=== PATIENT | male | born 1940 | race Caucasian/White ===

== ENCOUNTER 2020-04-25 05:57 | Outpatient (REF) | payer MEDICARE, OTHER, SELFPAY ==
[2020-04-25 07:37] LABS: Cholesterol 193 mg/dL; HDL Cholesterol 57 mg/dL; LDL Cholesterol Calculated 123 mg/dl; Triglycerides 69 mg/dL
[2020-04-25 08:00] LABS: Thyroid Stimulating Hormone 1.73 mIU/mL (0.32-4.0)
[2020-04-25 08:21] LABS: Digoxin 0.5 ng/mL (0.8-2.0)
== END 2020-04-25 05:58 | disposition home or self-care (01) ==
LOC: HO.LAB 05:57
PROVIDERS: PCP Internal Medicine; Visit Provider Internal Medicine
DX: I48.91 Unspecified atrial fibrillation (principal)
CPT/HCPCS: 80061; 80162; 84443

== ENCOUNTER 2020-07-21 12:01 | Emergency (ER) | payer MEDICARE, OTHER, SELFPAY ==
[2020-07-21 15:45] VITALS: BP 140/68; PULSE 84; RESP 16; TEMP 36.7; O2SAT 97; BMI 24.4
--- NOTE | 2020-07-21 16:12 | XR_ITS ---
EXAMINATION: XR FEMUR, LEFT CLINICAL INFORMATION: Pain. COMPARISON: None TECHNIQUE: AP and lateral views of the left femur were obtained. FINDINGS: There is no visible fracture, bony abnormality or periosteal thickening. The soft tissues are normal. The hip joint appears unremarkable.. XR/XR femur LT 2V IMPRESSION: Unremarkable left femur.
--- NOTE | 2020-07-21 17:04 | ED_ITS ---
HPI - Extremity Injury (Lower) General Chief Complaint: Extremity Injury, Lower Stated Complaint: sore leg Time Seen by Provider: 07/21/20 16:11 History of Present Illness HPI Narrative: Patient complains of left thigh pain after standing up from a chair he felt a small twinge and then it has gotten worse over the last 2 days, no other injury, no numbness no weakness no tingling no back pain he did not fall down, it is painful to walk Related Data Home Medications Medication Instructions Recorded Confirmed furosemide 40 mg tablet 40 mg PO BID 05/04/20 05/04/20 rivaroxaban 20 mg tablet 20 mg PO DAILY 05/04/20 05/04/20 Previous Rx's Medication Instructions Recorded albuterol sulfate 90 mcg/actuation 2 puff INHALATION Q4-6H PRN #6.7 g 04/11/20 aerosol inhaler digoxin 125 mcg (0.125 mg) tablet 125 mcg PO DAILY #90 tab 07/17/20 diltiazem HCl 180 mg 180 mg PO DAILY #90 tab 07/17/20 tablet,extended release 24 hr levothyroxine 50 mcg tablet 50 mcg PO DAILY #90 tab 07/17/20 Allergies Allergy/AdvReac Type Severity Reaction Status Date / Time No Known Allergies Allergy Verified 05/03/20 10:25 [No Known Allergies*] Review of Systems Review of Systems: No numbness weakness paresthesia, no chest pain or shortness of breath no back pain no neck pain no fever no chills Yes all other systems are reviewed and are negative PMFSH Past Medical History Source: nursing notes reviewed Medical History (Updated 07/21/20 @ 17:17 by MARA Mane) Afib Hypothyroidism Surgical History H/O prostatectomy Family History Family History (Updated 05/03/20 @ 10:25 by MICHEAL Villanueva) Father Alzheimers disease Mother Dementia Social History Social History Smoking Status: Current every day smoker Smoked in Last 30 Days: Yes Use of substances other than those prescribed or required for medical reasons: No Advance Directives: No Advance Directives Information Provided: Yes Physical Exam Vital Signs: Vital Signs: Last Vital Signs Temp 98.1 F 07/21/20 15:45 Pulse 84 07/21/20 15:45 Resp 16 07/21/20 15:45 BP 140/68 H 07/21/20 15:45 Pulse Ox 97 07/21/20 15:45 Body Mass Index 24.4 General appearance is no acute distress, comfortable appearing cooperative Head is normocephalic atraumatic The neck is supple and nontender Respiratory is no distress Extremities the left thigh has superior lateral tenderness over the muscles of the lateral upper thigh, no redness no warmth no mass palpated, there is full range of motion in the hip the patient is able to bear weight and walking with a mild limp without assistance, neurovascular intact distal and the skin was no rmal Neuro was no focal deficit Course Course Course Narrative: Left femur x-ray was normal with no evidence of bony injury or abnormality or no evidence of malignancy Patient is adviced this may simply be a muscle injury but if pain continues he will need further evaluation from orthopedist or his doctor to make sure there is not any underlying lesion not seen on x-ray that could be causing this pain Discharge Plan Discharge Clinical Impression: Left thigh pain Patient Disposition: Home, Self-Care Additional Instructions: I am not sure what is causing the pain, it may be a mild muscle strain But most important if you have pain in the left thigh that is not improving you will need follow with your doctor and orthopedist as in rare cases the pain could be caused by a lesion or a mass not seen on x-ray So follow with your doctor or orthopedist within 1-2 weeks Return to ER any time any worse condition or any concerns Prescriptions: No Action albuterol sulfate [ProAir HFA] 90 mcg/actuation HFA aerosol inhaler 2 puff inhalation Q4-6H PRN (Reason: shortness of breath or wheezing) Qty: 6.7 RF: 8 digoxin 125 mcg (0.125 mg) tablet 125 mcg PO DAILY Qty: 90 RF: 8 diltiazem HCl 180 mg tablet extended release 24 hr 180 mg PO DAILY Qty: 90 RF: 8 levothyroxine 50 mcg tablet 50 mcg PO DAILY Qty: 90 RF: 8 furosemide 40 mg tablet 40 mg PO BID RF: 0 Xarelto 20 mg tablet 20 mg PO DAILY RF: 0 Referrals: Josh Randall MD [Physician] - 2 days (Left thigh pain)
== END 2020-07-21 17:27 | disposition home or self-care (01) ==
PROVIDERS: Emergency Provider Emergency Medicine; PCP Internal Medicine
DX: M79.652 Pain in left thigh (principal); Z79.899 Other long term (current) drug therapy
CPT/HCPCS: 73552; 99283

== ENCOUNTER 2020-08-08 | Outpatient (REF) | payer MEDICARE, OTHER, SELFPAY | END 2020-08-08 00:01 | disposition home or self-care (01) | LOC: HO.VC | PROVIDERS: Visit Provider Internal Medicine | DX: Z23 Encounter for immunization (principal) | CPT/HCPCS: 0011A ==

== ENCOUNTER → 2020-08-22 08:22 | Outpatient (REF) | payer MEDICARE, OTHER, SELFPAY ==
--- NOTE | 2020-08-22 08:26 | CA_ITS ---
Transthoracic Echocardiogram Patient (Last, First, Middle): Balwinder Clay A Gender: Male Date of : 1940 Age: 80 Procedure Date: 08/22/2020 Procedure Type: Transthoracic Echocardiogram Location: OP Height: 182.88 cm Weight: 79.38 kg BSA: 2.01 m2 Heart Rate: bpm BP: 128 / 60 mmHg Clinical Research Physician: Silvia MD: Tunde Spring MD Production Grip: Rafael Chow MD Symptoms: NON RHEUMATIC I35.0 Study Quality: Fair ECG Rhythm: Atrial Fibrillation Conclusions: - 1. Normal LV systolic function 2. Severely dilated left atrium 3. Moderate aortic stenosis 4. Mild mitral regurgitation 5. Normal RV systolic pressure 6. No pericardial effusion Findings Left Ventricle Normal left ventricular size, thickness, and systolic function. The visually estimated ejection fraction is between 60-65%. Diastolic function is indeterminate on the basis of available data. Right Ventricle Normal right ventricular cavity size and systolic function. Atria The left atrium is severely dilated. There is lipomatous hypertrophy of the interatrial septum. There is no evidence of interatrial shunt. The right atrium is mildly dilated. Aortic Valve There is moderate calcification of the aortic valve. There is moderate thickening of the aortic valve. There is moderate aortic valve stenosis. The peak aortic gradient is 26 mmHg.The mean gradient is 15 mmHg. The aortic valve area is 1.32 cm2. There is mild aortic valve regurgitation. Mitral Valve There is mild anterior and posterior mitral leaflet thickening. There is moderate mitral annular calcification. There is mild mitral valve regurgitation. There is no mitral valve stenosis. Pulmonic Valve The pulmonic valve was not well visualized. Tricuspid Valve Likely normal tricuspid valve structure and function. There is mild tricuspid valve regurgitation. The right ventricular systolic pressure is normal. The right ventricular systolic pressure is 24 mmHg. There is no evidence of pulmonary hypertension. Great Vessels All visible segments of the aorta are normal in size. The pulmonary artery was not well visualized. Venous The inferior vena cava is normal in size and collapses greater than 50% with inspiration. Pericardium/Pleural There is no evidence of pericardial effusion. Prior Study Comparison No significant change compared to prior study dated: 01/27/2020. Measurements 2D Linear Measurements IVSd: 1.10 0.6-0.9/0.6-1.0 cm LVIDd: 5.12 3.9-5.3/4.2-5.9 cm LVIDd Index: 2.55 2.4-3.2/2.2-3.1 cm/m2 LVIDs: 3.17 2.0-3.6 cm LVPWd: 1.12 0.7-1.1 cm Ao Root: 3.80 2.1-3.5 cm LA Diam: 4.10 2.7-3.8/3.0-4.0 cm LAIDs Index: 2.04 1.5-2.3 cm/m2 LV Mass: 271.68 67-162/88-224 g LV Mass Index: 135.16 43-95/49-115 g/m2 LVOT Diam: 2.30 3.0+(-)1.3 cm 2D Systolic Function EF 4C: 56.30 >55% EF 2C: 69.80 >55% EF BiP: 61.80 >55% Mitral Valve MV VTI: 0.35 MV Pk Garrett: 1.45 MV Mn Garrett: 0.71 MV Pk Grad: 8.00 MV Mn Grad: 3.00 MV Pk E: 1.36 MV Decel Time: 332.00 E'Lateral: 9.48 E'Medial: 10.30 E/E' Med: 13.20 E/E' Lat: 14.30 PHT: 92.00 MVA PHT: 2.39 MVA Continuity: 2.18 Decel [place]: 4.65 Aortic Valve AoV Pk Garrett: 2.53 AoV Mn Garrett: 1.79 AoV VTI: 0.58 AoV Pk Grad: 26.00 Aov Mn Grad: 15.00 PEEWEE Cont.VTI: 1.32 LVOT LVOT Pk Garrett: 0.85 LVOT Mn Garrett: 0.58 LVOT VTI: 0.18 LVOT Pk Grad: 3.00 LVOT Mn Grad: 2.00 LVOT Diam: 2.30 LVOT Area: 4.15 Diastolic Function MV Pk E: 1.36 E'Medial: 10.30 E/E' Med: 13.20 E' Laterial: 9.48 E/E' Lat: 14.30 Tricuspid Valve TR Pk Garrett: 2.27 TR Pk Grad: 21.00 RA Press: 3.00 RVSP: 24.00 Great Vessels Aorta Ao Root-2D: 3.80 2.0-3.7 cm Ao Asc: 3.50 2.1-3.4 cm Updated in Other Vendor System with Status of Final Rafael Chow MD electronically signed on 08/22/2020 2:35:37 PM with status of Final
== END ==
LOC: HO.CARD 08:22
PROVIDERS: PCP Internal Medicine; Visit Provider Internal Medicine
DX: I35.0 Nonrheumatic aortic (valve) stenosis (principal); I48.91 Unspecified atrial fibrillation
CPT/HCPCS: 93225; 93226; 93306

== ENCOUNTER → 2020-08-24 10:08 | Outpatient (REF) | payer MEDICARE, OTHER, SELFPAY ==
--- NOTE | 2020-08-24 15:19 | ECG_ITS ---
Hook-up date: 2020-08-24 11:24:00 Duration: 47:59:00 Test Indications: AFIB Medications: [id number] QRS complexes 5056 Ventricular ectopics which represent 4 % of total QRS comp. * Supraventricular ectopics which represent % of total QRS comp. * Paced QRS complexs which represent % of total QRS comp. VENTRICULAR ECTOPY 4871 Isolated 188 Bigeminal Cycles 91 Couplets 1 Runs 3 Beats in Runs 3 Beats LONGEST at 138 BPM at 04:48:12 2020-08-25 3 Beats FASTEST at 138 BPM at 04:48:12 2020-08-25 SUPRAVENTRICULAR ECTOPY * Isolated * Couplets * Runs * Beats in Runs * Beats LONGEST at * BPM at :: -- * Beats FASTEST at * BPM at :: -- HEART RATES 45 MIN at 05:05:58 2020-08-25 73 AVG 144 MAX at 14:38:22 2020-08-24 LONGEST RR 2.3840 secs at 02:27:09 2020-08-25 S-T LEVELS Channel 1 - 128 mm at 11:24:00 2020-08-24 - 128 mm at 11:24:00 2020-08-24 Channel 2 - 128 mm at 11:24:00 2020-08-24 - 128 mm at 11:24:00 2020-08-24 Channel 3 - 128 mm at 03:04:31 -- - 128 mm at 03:04:31 Underlying rhythm is atrial fibrillation; Average ventricular rate 73/min; range 45-144/min; About 5% of the beats >100/min; 8% <60/min; No significant pauses; Frequent ventricular ectopy (5% of total beats); Mostly isolated, some couplets, bigeminy, one 3 beat run; Patient did not report any symptoms in the diary Referred By: Cecilia Moreira Overread By: CECILIA MOREIRA
== END ==
LOC: HO.CARD 10:08
PROVIDERS: PCP Internal Medicine; Visit Provider Internal Medicine
DX: I48.91 Unspecified atrial fibrillation (principal)
CPT/HCPCS: 93226

== ENCOUNTER → 2020-08-29 08:01 | Outpatient (BNVA) | payer MEDICARE, OTHER, SELFPAY | PROVIDERS: PCP Internal Medicine; Visit Provider Internal Medicine | DX: I48.19 Other persistent atrial fibrillation (principal); I35.0 Nonrheumatic aortic (valve) stenosis; I50.32 Chronic diastolic (congestive) heart failure | CPT/HCPCS: 93005; 99212 ==

== ENCOUNTER 2020-09-05 | Outpatient (REF) | payer MEDICARE, OTHER, SELFPAY | END 2020-09-05 00:01 | disposition home or self-care (01) | LOC: HO.VC | PROVIDERS: Visit Provider Internal Medicine | DX: Z23 Encounter for immunization (principal) | CPT/HCPCS: 0012A ==

== ENCOUNTER 2020-11-02 06:01 | Outpatient (REF) | payer MEDICARE, OTHER, SELFPAY ==
[2020-11-02 08:58] LABS: Thyroid Stimulating Hormone 1.72 uIU/mL (0.32-4.0)
== END 2020-11-02 06:02 | disposition home or self-care (01) ==
LOC: HO.LAB 06:01
PROVIDERS: PCP Internal Medicine; Visit Provider Internal Medicine
DX: E03.9 Hypothyroidism, unspecified (principal)
CPT/HCPCS: 36415; 84443

== ENCOUNTER → 2021-02-27 08:07 | Outpatient (BNVA) | payer MEDICARE, OTHER, SELFPAY | PROVIDERS: PCP Internal Medicine; Referring Provider Internal Medicine; Visit Provider Internal Medicine | DX: I48.19 Other persistent atrial fibrillation (principal); I35.0 Nonrheumatic aortic (valve) stenosis; I50.30 Unspecified diastolic (congestive) heart failure; E03.9 Hypothyroidism, unspecified; Z79.02 Long term (current) use of antithrombotics/antiplatelets; F17.210 Nicotine dependence, cigarettes, uncomplicated; Z79.899 Other long term (current) drug therapy | CPT/HCPCS: 99212 ==

== ENCOUNTER 2021-03-01 06:00 | Outpatient (REF) | payer MEDICARE, OTHER, SELFPAY ==
[2021-03-01 07:23] LABS: Anion Gap 12 (12-20); Blood Urea Nitrogen 18 mg/dL (9-16); Calcium 9.4 mg/dL (8.4-10.2); Carbon Dioxide 30 mmol/L (22-29); Chloride 102 mmol/L (96-108); Estimated Glomerular Filt Rate > 60; Glucose Random 99 mg/dL (60-115); Potassium 4.1 mmol/L (3.3-5.1); Sodium 140 mmol/L (135-145)
[2021-03-01 07:30] LABS: Digoxin 0.4 ng/mL (0.8-2.0)
== END 2021-03-01 06:01 | disposition home or self-care (01) ==
LOC: HO.LAB 06:00
PROVIDERS: PCP Internal Medicine; Visit Provider Internal Medicine
DX: I48.19 Other persistent atrial fibrillation (principal); Z79.899 Other long term (current) drug therapy
CPT/HCPCS: 36415; 80048; 80162

== ENCOUNTER 2021-04-08 18:31 | Emergency (ER) | payer MEDICARE, OTHER, SELFPAY ==
[2021-04-08 21:01] VITALS: BP 108/54; PULSE 57; RESP 16; TEMP 36.5; O2SAT 97; BMI 22.4
--- NOTE | 2021-04-08 22:58 | ED.GENADULT ---
HPI - General Adult General Chief complaint: General Medical Stated complaint: med issue Time Seen by Provider: 04/08/21 22:58 Source: patient Mode of arrival: ambulatory Limitations: no limitations History of Present Illness HPI narrative: Patient with history of atrial fibrillation hypothyroidism on Cardizem 180 mg twice daily by mistake took extra tablet at 18:30 on arrival patient heart rate was 57 denies any dizziness or syncope episode repeat blood pressure 120/58 and heart rate 72 Related Data Previous Rx's Medication Instructions Recorded digoxin 125 mcg (0.125 mg) tablet 125 mcg PO DAILY #90 tab 07/17/20 levothyroxine 50 mcg tablet 50 mcg PO DAILY #90 tab 07/17/20 furosemide 40 mg tablet 40 mg PO BID #180 tab 08/28/20 diltiazem HCl 180 mg 180 mg PO BID 90 Days #180 tab 10/12/20 tablet,extended release 24 hr rivaroxaban 20 mg tablet (Xarelto) 20 mg PO DAILY #90 tab 11/12/20 albuterol sulfate 90 mcg/actuation 2 puff INHALATION Q4-6H PRN #6.7 g 03/23/21 aerosol inhaler (ProAir HFA) Allergies Allergy/AdvReac Type Severity Reaction Status Date / Time No Known Allergies Allergy Verified 04/08/21 21:01 [No Known Allergies*] Review of Systems Review of Systems: Yes all other systems are reviewed and are negative PMF Past Medical History Medical History Afib Chronic heart failure with preserved ejection fraction (HFpEF) Hypothyroidism Non-rheumatic aortic stenosis Persistent atrial fibrillation Surgical History H/O prostatectomy Family History Family History Father Alzheimers disease Mother Dementia Social History Social History Alcohol intake: never Patient Tobacco Use Status: Current everyday Tobacco user Tobacco use type: Cigarette Cigarette Packs Per Day: 0.5 Cigarettes Per Day: 10 Years Smoked: 45 +/- Advance Directives: No Advance Directives Information Provided: Yes Physical Exam Vital Signs: Vital Signs: Last Vital Signs Temp 97.7 F 04/08/21 21:01 Pulse 72 04/08/21 23:09 Resp 16 04/08/21 23:09 BP 120/58 L 04/08/21 23:09 Pulse Ox 97 04/08/21 23:09 Body Mass Index 22.4 Appearance: Alert. Oriented X3. No acute distress. ENT: Pharynx normal. Oral Mucosa moist Neck: Normal inspection. Neck supple. CVS: Irregularly irregular heart rate Pulses normal. Respiratory: No respiratory distress. Equal air entry bilateral, no wheezing/rales/rhonchi Abdomen: Soft and nontender. Bowel sounds are present, Skin: Skin warm and dry. Normal skin color. Normal skin turgor. Extremities: No lower extremity edema. No calf tenderness Neuro: Oriented X 3. Medical Decision Making MDM Narrative Medical decision making narrative: Patient with nontoxic overdose of diltiazem vital stable will discharge patient home advised keep an eye on his heart rate and blood pressure Discharge Plan Discharge Clinical Impression: Overdose Qualifiers: Encounter type: initial encounter Injury intent: accidental or unintentional Qualified Code(s): T50.901A - Poisoning by unspecified drugs, medicaments and biological substances, accidental (unintentional), initial encounter Patient Disposition: Home, Self-Care Instructions: Adult Overdose (ED) Additional Instructions: Keep an eye on your blood pressure/heart rate overnight Report to the ER if feel like passing out or heart rate is less than 40 Be careful next time and taking your prescribed medication Prescriptions: No Action digoxin 125 mcg (0.125 mg) tablet 125 mcg PO DAILY Qty: 90 RF: 8 levothyroxine 50 mcg tablet 50 mcg PO DAILY Qty: 90 RF: 8 furosemide 40 mg tablet 40 mg PO BID Qty: 180 RF: 3 diltiazem HCl 180 mg tablet extended release 24 hr 180 mg PO BID 90 Days Qty: 180 RF: 1 Xarelto 20 mg tablet 20 mg PO DAILY Qty: 90 RF: 8 albuterol sulfate [ProAir HFA] 90 mcg/actuation HFA aerosol inhaler 2 puff inhalation Q4-6H PRN (Reason: shortness of breath or wheezing) Qty: 6.7 RF: 8
[2021-04-08 23:09] VITALS: BP 120/58; PULSE 72; RESP 16; O2SAT 97
== END 2021-04-08 23:17 | disposition home or self-care (01) ==
PROVIDERS: Emergency Provider Internal Medicine; PCP Internal Medicine
DX: T46.1X1A Poisoning by calcium-channel blockers, accidental (unintentional), initial encounter (principal); Y92.9 Unspecified place or not applicable; F17.210 Nicotine dependence, cigarettes, uncomplicated; Z79.899 Other long term (current) drug therapy; Z71.6 Tobacco abuse counseling
CPT/HCPCS: 99283

== ENCOUNTER 2021-05-13 06:19 | Outpatient (REF) | payer MEDICARE, OTHER, SELFPAY ==
[2021-05-13 06:27] LABS: MANUAL DIFF FLAG NO
[2021-05-13 07:11] LABS: Basophils Percent Auto 0.4 % (0-2); Eosinophils Absolute Auto 0.4 X10*3/uL (0.0-0.4); Eosinophils Percent Auto 3.8 % (0-4); Hematocrit 36.5 % (42.0-52.0); Hemoglobin 12.8 g/dl (14.0-18.0); Imm Gran Abs Auto 0.03 X10*3/uL (0.00-0.03); Imm Gran Pct Auto 0.3 % (0.0-0.4); Lymphocytes Absolute Auto 3.2 X10*3/uL (1.2-4.9); Lymphocytes Percent Auto 33.2 % (20-40); Mean Corpuscular HGB Conc 35.1 g/dl (31.0-36.0); Mean Corpuscular Hemoglobin 32.7 pg (27.0-33.0); Mean Corpuscular Volume 93.4 fL (80.0-98.0); Mean Platelet Volume 10.7 fL (9.4-12.4); Monocytes Percent Auto 10.4 % (2-11); Neutrophils Percent Auto 51.9 % (45-73); Platelet Count 213 X10*3/uL (160-400); Red Blood Count 3.91 X10*6/uL (4.60-5.80); Red Cell Distribution Width 12.7 % (11.0-16.0); White Blood Count 9.7 X10*3/uL (4.8-10.8)
[2021-05-13 07:34] LABS: Alanine Aminotransferase 20 U/L (0-40); Alkaline Phosphatase 120 U/L (39-117); Anion Gap 13 (12-20); Aspartate Amino Transferase 23 U/L (5-37); Blood Urea Nitrogen 18 mg/dL (9-16); Carbon Dioxide 31 mmol/L (22-29); Chloride 99 mmol/L (96-108); Cholesterol 162 mg/dL; Estimated Glomerular Filt Rate > 60; Glucose Fasting 103 mg/dL (60-99); HDL Cholesterol 54 mg/dL; LDL Cholesterol Calculated 96 mg/dl; Sodium 139 mmol/L (135-145); Total Protein 7.2 g/dL (6.5-8.0); Triglycerides 62 mg/dL
== END 2021-05-13 06:20 | disposition home or self-care (01) ==
LOC: HO.LAB 06:19
PROVIDERS: PCP Internal Medicine; Visit Provider Internal Medicine
DX: Z00.00 Encounter for general adult medical examination without abnormal findings (principal); E11.9 Type 2 diabetes mellitus without complications
CPT/HCPCS: 36415; 80053; 80061; 84443; 85025

== ENCOUNTER → 2021-06-25 10:26 | Outpatient (REF) | payer MEDICARE, OTHER, SELFPAY ==
--- NOTE | 2021-06-25 09:03 | HM_ITS ---
Total monitoring time 1 day in 23 hours. Underlying rhythm is atrial fibrillation. Average rate 78/Min. Minimum 50/Min. Maximum 134/Min. About 3.3% the time, rate greater than 100/Min. One pause, 3.1 seconds during sleep hours. Frequent PVCs with a burden of 2.5%. 3 morphologies; 206 couplets but no runs. No patient events. Overall, mostly controlled atrial fibrillation with some rapid rates. MTDD
== END ==
LOC: HO.CARD 10:26
PROVIDERS: PCP Internal Medicine; Visit Provider Internal Medicine
DX: I48.19 Other persistent atrial fibrillation (principal); Z79.01 Long term (current) use of anticoagulants
CPT/HCPCS: 93242

== ENCOUNTER 2021-10-07 06:21 | Outpatient (REF) | payer MEDICARE, OTHER, SELFPAY ==
[2021-10-07 07:21] LABS: Baso%MD 0.8 %; Eos%MD 5.4 %; Hematocrit 36.8 % (42.0-52.0); Hemoglobin 12.6 g/dl (14.0-18.0); IG%MD 0.4 %; Lymph%MD 37.2 %; Mean Corpuscular HGB Conc 34.2 g/dl (31.0-36.0); Mean Corpuscular Hemoglobin 32.2 pg (27.0-33.0); Mean Corpuscular Volume 94.1 fL (80.0-98.0); Mean Platelet Volume 10.2 fL (9.4-12.4); Mono%MD 9.5 %; Neut%MD 46.7 %; Platelet Count 251 X10*3/uL (160-400); Red Blood Count 3.91 X10*6/uL (4.60-5.80); Red Cell Distribution Width 13.2 % (11.0-16.0); White Blood Count 7.8 X10*3/uL (4.8-10.8)
[2021-10-07 07:28] LABS: Estimated Average Glucose 111 mg/dL; Hemoglobin A1C 123.8322 umol/L; Hemoglobin A1c % 5.5 %
[2021-10-07 07:53] LABS: Anion Gap 10 (12-20); Blood Urea Nitrogen 21 mg/dL (9-16); Calcium 9.4 mg/dL (8.4-10.2); Carbon Dioxide 31 mmol/L (22-29); Chloride 100 mmol/L (96-108); Cholesterol 190 mg/dL; Estimated Glomerular Filt Rate > 60; Glucose Fasting 92 mg/dL (60-99); HDL Cholesterol 62 mg/dL; LDL Cholesterol Calculated 119 mg/dl; Potassium 4.2 mmol/L (3.3-5.1); Sodium 137 mmol/L (135-145); Triglycerides 45 mg/dL
[2021-10-07 08:17] LABS: Prostate Specific Antigen Scr 0.36 ng/mL (<0.05-4.0)
[2021-10-07 08:58] LABS: Band Neutrophils Percent 0 % (3-5); Basophils Abs Manual 0.1 X10*3/uL (0.0-0.2); Basophils Percent Manual 1 % (0-2); Eosinophils Absolute Manual 0.7 X10*3/uL (0.0-0.4); Eosinophils Percent Manual 9 % (0-4); Lymphocytes Percent Manual 39 % (20-40); Monocytes Absolute Manual 0.9 X10*3/uL (0.1-1.2); Monocytes Percent Manual 11 % (2-11); Neutrophils Absolute Manual 3.1 X10*3/uL (2.0-8.3); Neutrophils Percent Manual 40 % (45-73)
[2021-10-07 09:01] LABS: Acanthocytes 1+ (0-2) /OIF; Burr Cells 1+ (0-2) /OIF; Ovalocytes 1+ (5-14) /OIF; Platelet Estimate NORMAL (NORMAL); Platelet Morphology Comment NORMAL; RBC Morphology NOTED
[2021-10-07 09:54] LABS: Digoxin 0.5 ng/mL (0.8-2.0)
== END 2021-10-07 06:22 | disposition home or self-care (01) ==
LOC: HO.LAB 06:21
PROVIDERS: PCP Internal Medicine; Visit Provider Nurse Practitioner Acute Care
DX: E03.9 Hypothyroidism, unspecified (principal); I48.19 Other persistent atrial fibrillation; R73.09 Other abnormal glucose; Z86.39 Personal history of other endocrine, nutritional and metabolic disease; Z12.5 Encounter for screening for malignant neoplasm of prostate
CPT/HCPCS: 36415; 80048; 80061; 80162; 83036; 84153; 84443; 85007; 85027

== ENCOUNTER 2021-10-14 06:07 | Outpatient (REF) | payer MEDICARE, OTHER, SELFPAY ==
[2021-10-14 08:19] LABS: Digoxin 0.7 ng/mL (0.8-2.0)
== END 2021-10-14 06:08 | disposition home or self-care (01) ==
LOC: HO.LAB 06:07
PROVIDERS: PCP Internal Medicine; Visit Provider Nurse Practitioner Acute Care
DX: Z79.899 Other long term (current) drug therapy (principal); R78.89 Finding of other specified substances, not normally found in blood
CPT/HCPCS: 36415; 80162

== ENCOUNTER → 2021-10-22 09:03 | Outpatient (REF) | payer MEDICARE, OTHER, SELFPAY ==
--- NOTE | 2021-10-22 09:07 | CA_ITS ---
Transthoracic Echocardiogram Patient (Last, First, Middle): Balwinder Clay A Gender: Male Date of : 1940 Age: 81 Procedure Date: 10/22/2021 Procedure Type: Transthoracic Echocardiogram Location: OP Height: 180.34 cm Weight: 72.58 kg BSA: 1.92 m2 Heart Rate: bpm BP: 118 / 58 mmHg Supervisor Parking Lot: LUIS EDUARDO Referring MD: Tunde Spring MD Facility Technician: Rafael Chow MD Symptoms: I35.0 - Nonrheumatic aortic (valve) stenosis Study Quality: Fair ECG Rhythm: Atrial Fibrillation Conclusions: - 1. Normal LV systolic function 2. A t least moderate left atrial enlargement 3. Moderate aortic stenosis 4. Normal RV systolic pressure 5. No gross pericardial effusion Findings Left Ventricle Normal left ventricular size, thickness, and systolic function. The visually estimated ejection fraction is between 65-70%. Diastolic function is indeterminate on the basis of available data. E/E prime ratio is between 8 and 15 consistent with indeterminate filling pressures. Right Ventricle Normal right ventricular cavity size and systolic function. Atria The left atrium is moderately dilated. Interatrial shunt cannot be excluded. The right atrium is mildly dilated. Aortic Valve There is moderate calcification of the aortic valve. There is moderate aortic valve stenosis. There is no aortic valve regurgitation. Mitral Valve There is mild anterior and moderate posterior mitral leaflet thickening. There is moderate mitral annular calcification. There is mild mitral valve regurgitation. There is no mitral valve stenosis. Pulmonic Valve The pulmonic valve was not well visualized. Tricuspid Valve Likely normal tricuspid valve structure and function. There is mild tricuspid valve regurgitation. The right ventricular systolic pressure is normal. The right ventricular systolic pressure is 23 mmHg. Normal right atrial pressure. There is no evidence of pulmonary hypertension. Great Vessels All visible segments of the aorta are normal in size. The pulmonary artery was not well visualized. Venous The inferior vena cava is normal in size and collapses greater than 50% with inspiration. Pericardium/Pleural There is no evidence of pericardial effusion. Prior Study Comparison No significant change compared to prior study dated: 08/22/2020. Measurements 2D Linear Measurements IVSd: 0.92 0.6-0.9/0.6-1.0 cm LVIDd: 4.91 3.9-5.3/4.2-5.9 cm LVIDd Index: 2.56 2.4-3.2/2.2-3.1 cm/m2 LVIDs: 3.32 2.0-3.6 cm LVPWd: 0.86 0.7-1.1 cm LA Diam: 3.60 2.7-3.8/3.0-4.0 cm LAIDs Index: 1.88 1.5-2.3 cm/m2 LV Mass: 188.43 67-162/88-224 g LV Mass Index: 98.14 43-95/49-115 g/m2 LVOT Diam: 2.10 3.0+(-)1.3 cm 2D Systolic Function EF 4C: 70.30 >55% EF 2C: 72.40 >55% EF BiP: 70.80 >55% Mitral Valve MV Pk E: 1.11 MV Decel Time: 216.00 E'Lateral: 11.50 E'Medial: 8.20 E/E' Med: 13.50 E/E' Lat: 9.70 PHT: 63.00 MVA PHT: 3.49 Decel [place]: 5.15 Aortic Valve AoV Pk Garrett: 2.40 AoV Mn Garrett: 1.63 AoV VTI: 0.51 AoV Pk Grad: 23.00 Aov Mn Grad: 12.00 PEEWEE Cont.VTI: 1.22 LVOT LVOT Pk Garrett: 0.79 LVOT Mn Garrett: 0.53 LVOT VTI: 0.17 LVOT Pk Grad: 2.00 LVOT Mn Grad: 2.00 LVOT Diam: 2.10 LVOT Area: 3.46 Diastolic Function MV Pk E: 1.11 E'Medial: 8.20 E/E' Med: 13.50 E' Laterial: 11.50 E/E' Lat: 9.70 Right Ventricle TAPSE (mm): 1.95 TVS' Garrett: 14.40 Tricuspid Valve TR Pk Garrett: 2.25 TR Pk Grad: 20.00 RA Press: 3.00 RVSP: 23.00 Great Vessels Aorta Sinus of Valsalva: 3.74 2.0-3.5 cm Ao Asc: 3.70 2.1-3.4 cm Updated in Other Vendor System with Status of Final Rafael Chow MD electronically signed on 10/22/2021 11:34:18 AM with status of Final
== END ==
LOC: HO.CARD 09:03
PROVIDERS: PCP Internal Medicine; Visit Provider Internal Medicine
DX: I35.0 Nonrheumatic aortic (valve) stenosis (principal)
CPT/HCPCS: 93306

== ENCOUNTER → 2021-12-05 13:54 | Outpatient (BNVA) | payer MEDICARE, OTHER, SELFPAY | PROVIDERS: PCP Internal Medicine; Referring Provider Internal Medicine; Visit Provider Nurse Practitioner Family | DX: I48.19 Other persistent atrial fibrillation (principal); I35.0 Nonrheumatic aortic (valve) stenosis; I50.32 Chronic diastolic (congestive) heart failure | CPT/HCPCS: Q3014 ==

== ENCOUNTER 2022-03-03 06:09 | Outpatient (REF) | payer MEDICARE, OTHER, SELFPAY ==
[2022-03-03 08:04] LABS: Thyroid Stimulating Hormone 1.86 uIU/mL (0.32-4.0)
== END 2022-03-03 06:10 | disposition home or self-care (01) ==
LOC: HO.LAB 06:09
PROVIDERS: Visit Provider Internal Medicine
DX: Z13.29 Encounter for screening for other suspected endocrine disorder (principal)
CPT/HCPCS: 36415; 84443

== ENCOUNTER 2022-05-14 08:33 | Outpatient (REF) | payer MEDICARE, OTHER, SELFPAY ==
[2022-05-14 08:52] LABS: MANUAL DIFF FLAG NO
[2022-05-14 09:11] LABS: Basophils Absolute Auto 0.1 X10*3/uL (0.0-0.2); Basophils Percent Auto 0.8 % (0-2); Eosinophils Absolute Auto 0.3 X10*3/uL (0.0-0.4); Eosinophils Percent Auto 3.9 % (0-4); Hematocrit 38.2 % (42.0-52.0); Hemoglobin 12.9 g/dl (14.0-18.0); Imm Gran Abs Auto 0.02 X10*3/uL (0.00-0.03); Imm Gran Pct Auto 0.2 % (0.0-0.4); Lymphocytes Absolute Auto 3.3 X10*3/uL (1.2-4.9); Lymphocytes Percent Auto 38.9 % (20-40); Mean Corpuscular HGB Conc 33.8 g/dl (31.0-36.0); Mean Corpuscular Volume 94.8 fL (80.0-98.0); Mean Platelet Volume 10.2 fL (9.4-12.4); Monocytes Absolute Auto 0.7 X10*3/uL (0.1-1.2); Monocytes Percent Auto 8.4 % (2-11); Neutrophils Absolute Auto 4.1 x10*3/uL (2.0-8.3); Neutrophils Percent Auto 47.8 % (45-73); Platelet Count 233 X10*3/uL (160-400); Red Blood Count 4.03 X10*6/uL (4.60-5.80); Red Cell Distribution Width 12.8 % (11.0-16.0); White Blood Count 8.5 X10*3/uL (4.8-10.8)
[2022-05-14 09:32] LABS: Alanine Aminotransferase 24 U/L (0-40); Albumin Level 4.3 g/dL (3.5-5.0); Alkaline Phosphatase 109 U/L (39-117); Anion Gap 16 (12-20); Aspartate Amino Transferase 26 U/L (5-37); Bilirubin Total 0.8 mg/dL (0.0-1.0); Blood Urea Nitrogen 17 mg/dL (9-16); Calcium 9.2 mg/dL (8.4-10.2); Carbon Dioxide 28 mmol/L (22-29); Chloride 101 mmol/L (96-108); Cholesterol 190 mg/dL; Estimated Glomerular Filt Rate > 60; Glucose Fasting 91 mg/dL (60-99); HDL Cholesterol 66 mg/dL; LDL Cholesterol Calculated 116 mg/dl; Potassium 4.7 mmol/L (3.3-5.1); Sodium 140 mmol/L (135-145); Total Protein 7.5 g/dL (6.5-8.0); Triglycerides 42 mg/dL
[2022-05-14 09:53] LABS: Thyroid Stimulating Hormone 1.67 uIU/mL (0.32-4.0)
== END 2022-05-14 08:34 | disposition home or self-care (01) ==
LOC: HO.LAB 08:33
PROVIDERS: PCP Internal Medicine; Visit Provider Internal Medicine
DX: Z13.0 Encounter for screening for diseases of the blood and blood-forming organs and certain disorders involving the immune mechanism (principal); E03.9 Hypothyroidism, unspecified; E78.5 Hyperlipidemia, unspecified; I10 Essential (primary) hypertension
CPT/HCPCS: 36415; 80053; 80061; 84443; 85025

== ENCOUNTER → 2022-06-23 08:24 | Outpatient (BNVA) | payer MEDICARE, OTHER, SELFPAY | PROVIDERS: PCP Internal Medicine; Referring Provider Internal Medicine; Visit Provider Internal Medicine | DX: I48.19 Other persistent atrial fibrillation (principal); I35.0 Nonrheumatic aortic (valve) stenosis; I50.32 Chronic diastolic (congestive) heart failure | CPT/HCPCS: 93005; 99212 ==

== ENCOUNTER 2022-09-05 06:14 | Outpatient (REF) | payer MEDICARE, OTHER, SELFPAY ==
[2022-09-05 08:33] LABS: Thyroid Stimulating Hormone 2.56 uIU/mL (0.32-4.0)
== END 2022-09-05 06:15 | disposition home or self-care (01) ==
LOC: HO.LAB 06:14
PROVIDERS: PCP Internal Medicine; Visit Provider Internal Medicine
DX: E03.9 Hypothyroidism, unspecified (principal)
CPT/HCPCS: 36415; 84443

== ENCOUNTER → 2022-12-09 08:49 | Outpatient (REF) | payer MEDICARE, OTHER, SELFPAY ==
--- NOTE | 2022-12-09 08:52 | CA_ITS ---
Transthoracic Echocardiogram Patient (Last, First, Middle): Balwinder Clay A Gender: Male Date of : 1940 Age: 82 Procedure Date: 12/09/2022 Procedure Type: Transthoracic Echocardiogram Location: OP Height: 177.8 cm Weight: 65.32 kg BSA: 1.82 m2 Heart Rate: bpm BP: 120 / 64 mmHg Regulatory Product Manager: SB Referring MD: Tunde Spring MD Symptoms: I35.0 - Nonrheumatic aortic (valve) stenosis Study Quality: Technically Difficult/narrow rib spaces ECG Rhythm: Atrial Fibrillation Conclusions: - The left ventricular systolic function is normal. The calculated ejection fraction is 66% by biplane method. - Severe biatrial enlargement. - There is moderate calcification of the aortic valve. There is moderate aortic valve stenosis. - There is moderate mitral annular calcification. Findings Left Ventricle Normal left ventricular cavity size. There is normal left ventricular wall thickness. The left ventricular systolic function is normal. The calculated ejection fraction is 66% by biplane method. There is no evidence of regional wall motion abnormalities. Diastolic function is indeterminate on the basis of available data. Right Ventricle Normal right ventricular cavity size. There is mildly decreased right ventricular systolic function. Atria Severe biatrial enlargement. Aortic Valve There is moderate calcification of the aortic valve. There is moderate aortic valve stenosis. The peak aortic velocity is 2.21 m/s with a calculated peak gradient of 20 mmHg. The mean gradient is 10 mmHg. The aortic valve area is 1.25 cm2. Trace to mild regurgitation. Stroke volume index 31 mL/m2. Mitral Valve There is moderate mitral annular calcification. There is trace mitral valve regurgitation. There is no mitral valve stenosis. Pulmonic Valve The pulmonic valve is likely normal. Tricuspid Valve There is mild tricuspid valve regurgitation. There is no evidence of pulmonary hypertension. Great Vessels The asc aorta is normal in size. Venous The inferior vena cava is mildly dilated and collapses greater than 50% with inspiration. Pericardium/Pleural There is no evidence of pericardial effusion. Prior Study Comparison No significant change compared to prior study dated: 10/22/2021. Measurements 2D Linear Measurements IVSd: 0.85 0.6-0.9/0.6-1.0 cm LVIDd: 4.90 3.9-5.3/4.2-5.9 cm LVIDd Index: 2.69 2.4-3.2/2.2-3.1 cm/m2 LVIDs: 3.17 2.0-3.6 cm LVPWd: 0.75 0.7-1.1 cm LA Diam: 4.30 2.7-3.8/3.0-4.0 cm LAIDs Index: 2.36 1.5-2.3 cm/m2 LV Mass: 163.78 67-162/88-224 g LV Mass Index: 89.99 43-95/49-115 g/m2 LVOT Diam: 2.20 3.0+(-)1.3 cm 2D Systolic Function EF 4C: 65.10 >55% EF 2C: 65.90 >55% EF BiP: 65.80 >55% Mitral Valve MV VTI: 0.29 MV Pk Garrett: 1.32 MV Mn Garrett: 0.61 MV Pk Grad: 7.00 MV Mn Grad: 2.00 MV Pk E: 1.18 MV Decel Time: 222.00 E'Lateral: 7.33 E'Medial: 6.67 E/E' Med: 17.70 E/E' Lat: 16.10 MVA Continuity: 1.98 Aortic Valve AoV Pk Garrett: 2.21 AoV Mn Garrett: 1.53 AoV VTI: 0.46 AoV Pk Grad: 20.00 Aov Mn Grad: 10.00 PEEWEE Cont.VTI: 1.25 AI Pk Garrett: 3.[address] [place]: 1.71 LVOT LVOT Pk Garrett: 0.69 LVOT Mn Garrett: 0.49 LVOT VTI: 0.15 LVOT Pk Grad: 2.00 LVOT Mn Grad: 1.00 LVOT Diam: 2.20 LVOT Area: 3.80 Diastolic Function MV Pk E: 1.18 E'Medial: 6.67 E/E' Med: 17.70 E' Laterial: 7.33 E/E' Lat: 16.10 Right Ventricle TAPSE (mm): 16.10 TVS' [place]: 10.90 Tricuspid Valve TR Pk Garrett: 2.21 TR Pk Grad: 20.00 RA Press: 8.00 RVSP: 28.00 Great Vessels Aorta Sinus of Valsalva: 3.90 2.0-3.5 cm Ao Asc: 3.40 2.1-3.4 cm Pulmonary Valve PV Pk Garrett: 0.58 Peak PV Grad: 1.00 Updated in Other Vendor System with Status of Final Tunde Spring MD electronically signed on 12/10/2022 12:41:05 PM with status of Final
== END ==
LOC: HO.CARD 08:49
PROVIDERS: PCP Internal Medicine; Visit Provider Internal Medicine
DX: I35.0 Nonrheumatic aortic (valve) stenosis (principal)
CPT/HCPCS: 93306

== ENCOUNTER 2022-12-10 06:09 | Outpatient (REF) | payer MEDICARE, OTHER, SELFPAY ==
[2022-12-10 07:42] LABS: Thyroid Stimulating Hormone 2.68 uIU/mL (0.32-4.0)
== END 2022-12-10 06:10 | disposition home or self-care (01) ==
LOC: HO.LAB 06:09
PROVIDERS: PCP Internal Medicine; Visit Provider Internal Medicine
DX: E03.9 Hypothyroidism, unspecified (principal)
CPT/HCPCS: 36415; 84443

== ENCOUNTER 2023-03-10 06:09 | Outpatient (REF) | payer MEDICARE, OTHER, SELFPAY ==
[2023-03-10 08:38] LABS: Thyroid Stimulating Hormone 2.51 uIU/mL (0.32-4.0)
== END 2023-03-10 06:10 | disposition home or self-care (01) ==
LOC: HO.LAB 06:09
PROVIDERS: PCP Internal Medicine; Visit Provider Internal Medicine
DX: E03.9 Hypothyroidism, unspecified (principal)
CPT/HCPCS: 36415; 84443

== ENCOUNTER 2023-03-11 11:00 | Outpatient (AMB) | payer MEDICARE, OTHER, SELFPAY ==
--- NOTE | 2023-03-11 11:27 | A.OFFVIS_ITS ---
Intake Vital Signs 03/11/23 11:29 Height 5 ft 7 in Weight 140 lb 10.479 oz BMI 22.0 BP 108/68 Blood Pressure Location Lt brachial Position Sitting Pulse 78 Intake Visit Reasons: 6 month follow up Intake Note: 6 month w/ EKG Accompanied by: Self / Same As Patient Allergies No Known Allergies [No Known Allergies*] Allergy (Verified 03/11/23 11:30) Medication List - Last Reconciled 03/11/23 by Tunde Spring MD albuterol sulfate 90 mcg/actuation 2 puffs inhalation Q4-6H PRN digoxin 125 mcg PO DAILY diltiazem HCl ER 180 mg PO BID 90 days furosemide 40 mg PO BID levothyroxine 50 mcg PO DAILY rivaroxaban (Xarelto) 20 mg PO DAILY HPI HPI Comments History of Present Illness Details Balwinder returns for follow-up regarding atrial fibrillation, aortic stenosis, congestive heart failure. According to patient, he has not had any symptoms like chest pains or shortness of breath or in fact anything cardiac sounding. He states he is doing quite well. He states he has lost some weight and hence concerned about that. [facility] Medical History Afib Chronic heart failure with preserved ejection fraction (HFpEF) Hypothyroidism Non-rheumatic aortic stenosis Persistent atrial fibrillation Surgical History H/O prostatectomy Family History Father Alzheimers disease Mental health disorder Mother Dementia Mental health disorder Social History Housing: House Alcohol intake: current Alcohol intake frequency: holidays/special occasions only Patient Tobacco Use Status: Current everyday Tobacco user Tobacco use type: Cigarette Cigarette Packs Per Day: 0.5 Cigarettes Per Day: 10 Years Smoked: 45 +/- e-Cigarette/Vaping Use: Never Used Second Hand Smoke Exposure: Yes service: No Current occupational status: retired Cognitive needs: No Hearing needs: No Vision needs: Yes Review of Systems Const Denies weakness ENT Denies dizziness Card Denies chest pain, Denies chest pain with activity, Denies syncope, Denies rapid heart rate, Denies pedal edema, Denies edema, Denies leg edema, Denies lightheadedness, Denies palpitations, Denies dyspnea, Denies dyspnea on exertion and Denies orthopnea Resp Denies cough, Denies dyspnea and Denies dyspnea on exertion GI Denies hematochezia and Denies change in stool character Musc Denies abnormal gait, Denies muscle cramps, Denies muscle weakness, Denies numbness, Denies radiating pain into limb and Denies tingling Neuro Denies abnormal gait, Denies dizziness, Denies syncope, Denies numbness, Denies tingling and Denies weakness Endo Denies palpitations Physical Exam Vital Signs: Last Vital Signs Pulse 78 03/11/23 11:29 BP 108/68 03/11/23 11:29 BMI result Body Mass Index 22.0 Const General: comfortable and no acute distress Orientation/consciousness: patient oriented x3 HEENT Other: Unremarkable Head: Yes normal to inspection Neck Neck: Yes normal visual inspection Chest Chest palpation & inspection: normal inspection of the chest Resp Other: Minimal crackles at bases. Cardio Palpation: normal PMI Heart sounds: S1 normal heart sound present, S2 normal heart sound present, no gallops, Murmur heart sound present systolic II/ and at the right sternal border and no rubs GI Palpation (GI): Soft to palpation Back/Spine/Pelvis Other: unremarkable Skin General skin exam: no rashes or lesions noted Neuro General: patient oriented x3 Extrem General: Yes normal to inspection Psych Mental Status: mental status grossly normal Assessment & Plan Assessment & Plan (1) Persistent atrial fibrillation: Code(s): I48.19 - Other persistent atrial fibrillation Plan: Continue diltiazem and digoxin. Continue Xarelto. He will need labs including CBC, BMP as well as digoxin levels. Requested today and asked patient to perform. (2) Non-rheumatic aortic stenosis: Code(s): I35.0 - Nonrheumatic aortic (valve) stenosis Plan: Based on the most recent echocardiogram, moderate aortic valve calcification with moderate aortic stenosis. Mean gradient across aortic valve was 10 mm Hg. Calculated valve area of 1.25 sq cm. Will need to be monitored. (3) Chronic heart failure with preserved ejection fraction (HFpEF): Code(s): I50.32 - Chronic diastolic (congestive) heart failure Plan: In the recent echo LVEF 66%. No symptoms or signs of congestive heart failure. Check renal function. Orders: Orders Basic Metabolic Panel Today I50.32 - Chronic diastolic (congestive) heart failure Digoxin Today I48.19 - Other persistent atrial fibrillation, I50.32 - Chronic diastolic (congestive) heart failure Liver Panel Today I50.32 - Chronic diastolic (congestive) heart failure Complete Blood Count no Diff Today I50.32 - Chronic diastolic (congestive) heart failure CA echo transthoracic complete 51 Weeks I35.0 - Nonrheumatic aortic (valve) stenosis Coding Level of Care Code Est Pt Level 4 (00283) Diagnoses Persistent atrial fibrillation I48.19 Non-rheumatic aortic stenosis I35.0 Chronic heart failure with preserved ejection fraction (HFpEF) I50.32
[2023-03-11 11:29] VITALS: BP 108/68; PULSE 78; BMI 22.0
== END 2023-03-11 11:41 | disposition home or self-care (01) ==
PROVIDERS: PCP Internal Medicine; Referring Provider Internal Medicine; Visit Provider Internal Medicine
DX: I48.19 Other persistent atrial fibrillation (principal); I35.0 Nonrheumatic aortic (valve) stenosis; I50.32 Chronic diastolic (congestive) heart failure
CPT/HCPCS: 99214

== ENCOUNTER → 2023-03-11 11:00 | Outpatient (BNVA) | payer MEDICARE, OTHER, SELFPAY | PROVIDERS: PCP Internal Medicine; Referring Provider Internal Medicine; Visit Provider Internal Medicine | DX: I35.0 Nonrheumatic aortic (valve) stenosis (principal); I50.32 Chronic diastolic (congestive) heart failure; I48.19 Other persistent atrial fibrillation | CPT/HCPCS: 99212 ==

== ENCOUNTER 2023-03-13 09:15 | Outpatient (AMB) | payer MEDICARE, OTHER, SELFPAY ==
--- NOTE | 2023-03-13 09:16 | A.OFFPC_ITS ---
Vital Signs 03/13/23 09:17 Height 5 ft 7 in Weight 138 lb 2 oz BMI 21.6 BP 132/62 Blood Pressure Location Lt brachial Position Sitting Pulse 62 Pulse Source Pulse Oximeter Pulse Oximetry (%) 97 Oxygen Delivery Method Room Air Intake Visit Reasons: 3mth f/u Prepleater: Not Required per policy Accompanied by: Self / Same As Patient Allergies No Known Allergies [No Known Allergies*] Allergy (Verified 03/13/23 09:17) Medication List - Last Reconciled 03/13/23 by Sinan Luis MD albuterol sulfate 90 mcg/actuation 2 puffs inhalation Q4-6H PRN digoxin 125 mcg PO DAILY diltiazem HCl ER 180 mg PO BID 90 days furosemide 40 mg PO BID levothyroxine 50 mcg PO DAILY rivaroxaban (Xarelto) 20 mg PO DAILY Tobacco use date assessed: 09/09/22 Fall risk assessment: No Falls in past year Last assessed Fall Risk: 03/13/23 Dental Screening Dental Screen Date: 03/13/23 Did you have a dental visit in the last 12 months?: No Did you have a dental problem in the last 6 months where you did not have access to dental care?: No Was dental information given to patient?: Patient has dentist HPI 3mth f/u HPI Details afib hypothyroidism and hyperlipidemia; doing well; compliant [facility] Medical History Chronic heart failure with preserved ejection fraction (HFpEF) Non-rheumatic aortic stenosis Persistent atrial fibrillation Afib Hypothyroidism Surgical History H/O prostatectomy Family History Father Alzheimers disease Mental health disorder Mother Dementia Mental health disorder Social History Housing: House Alcohol intake: current Alcohol intake frequency: holidays/special occasions only Patient Tobacco Use Status: Current everyday Tobacco user Tobacco use type: Cigarette Cigarette Packs Per Day: 0.5 Cigarettes Per Day: 10 Years Smoked: 45 +/- e-Cigarette/Vaping Use: Never Used Second Hand Smoke Exposure: Yes service: No Current occupational status: retired Cognitive needs: No Hearing needs: No Vision needs: Yes Questionnaire PHQ-9 Over the last 2 weeks, how often have you been bothered by any of the following problems? 1. Little interest or pleasure in doing things: not at all 2. Feeling down, depressed, or hopeless: not at all 3. Trouble falling or staying asleep, or sleeping too much: not at all 4. Feeling tired or having little energy: not at all 5. Poor appetite or overeating: not at all 6. Feeling bad about yourself - or that you are a failure or have let yourself or your family down: not at all 7. Trouble concentrating on things, such as reading the newspaper or watching television: not at all 8. Moving or speaking so slowly that other people could have noticed. Or the opposite - being so fidgety or restless that you have been moving around a lot more than usual: not at all 9. Thoughts that you would be better off or of hurting yourself in some way: not at all Total score: 0 Depression Screening Interpretation: Negative 98672 - PHQ-9 Billing: Yes Source: Developed by Drs. Frandy Li, Helena Mtz, Sadi De Guzman and colleagues, with an educational kell from [employer]. Thrive Questionnaire Date Thrive assessed: 03/13/23 I am a: Patient What is your living situation today?: I have a steady place to live Within the past 12 months, did the food you bought not last and you didn't have the money to get more?: Never true Within the past 12 months, did you worry whether your food would run out before you got money to buy more?: Never true Do you have trouble paying for medicines?: No Do you have trouble getting transportation to medical appointments?: No Do you have trouble paying your heating and electricity bill?: No Do you have trouble taking care of your child, family member or friend?: No Do you have trouble with day-to-day activities such as bathing, preparing meals, shopping, managing finances, etc.?: No Are you currently unemployed and looking for a job?: No Are you interested in more education?: No Please select the resources that you would like help with: None AUDIT C Alcohol Use Questionnaire (AUDIT-C) 1. How often do you have a drink containing alcohol?: Monthly or less 2. How many drinks containing alcohol do you have on a typical day when you are drinking?: 1 or 2 3. How often do you have six or more drinks on one occasion?: Never Total Score: 1 Score Reviewed/Action Taken: Yes JELANI-7 AMB Questionnaire JELANI-7 Date JELANI - 7 assessed: 09/09/22 Source: Developed by Drs. Frandy Li, Helena Mtz, Sadi De Guzman and colleagues, with an educational kell from [employer]. Review of Systems Const Denies chills, Denies headache(s) and Denies weight loss ENT Denies headache(s) Card Denies chest pain, Denies syncope, Denies irregular heart rhythm and Denies dyspnea Resp Denies chest congestion, Denies cough and Denies dyspnea GI Denies abdominal pain, Denies change in stool character, Denies nausea and Denies vomiting Musc Denies deformity and Denies joint swelling Neuro Denies syncope and Denies headache(s) Physical exam (Primary Care) Vital Signs: Last Vital Signs Pulse 62 03/13/23 09:17 BP 132/62 03/13/23 09:17 Pulse Ox 97 03/13/23 09:17 Oxygen Delivery Method Room Air 03/13/23 09:17 BMI result Body Mass Index 21.6 Tobacco/Smoking Status: Tobacco use Status Tobacco use date assessed 09/09/22 03/13/23 09:25 Patient Tobacco Use Status Current everyday Tobacco 03/13/23 09:25 Tobacco use type Cigarette 03/13/23 09:25 e-Cigarette/Vaping Use Never Used 03/13/23 09:25 PHQ-9: PHQ-9 Score PHQ-9: Total score 0 03/13/23 09:25 Depression Screening Interpretation: Negative Thrive Assessment: Date of Thrive Assessment Date Thrive assessed 03/13/23 03/13/23 09:25 Const General: cooperative, comfortable, no acute distress and alert Neck Neck: Yes no lymphadenopathy Thyroid: Thyroid normal Resp Effort & Inspection: normal respiratory effort Auscultation: clear to auscultation bilaterally Percussion: percussion normal Cardio Jugular venous distension: no JVD Palpation: normal PMI Rate: regular rate Rhythm: regular rhythm Heart sounds: S1 normal heart sound present and S2 normal heart sound present GI Inspection: Yes normal to inspection Palpation (GI): No hepatosplenomegaly present Skin General skin exam: no rashes or lesions noted Extrem General: Yes no clubbing, cyanosis or edema Assessment and Plan Assessment & Plan (1) Persistent atrial fibrillation: Code(s): I48.19 - Other persistent atrial fibrillation Plan: stable; same rx (2) Hypothyroidism: Code(s): E03.9 - Hypothyroidism, unspecified Qualifiers: Hypothyroidism type: due to medication Qualified Code(s): E03.2 - Hypothyroidism due to medicaments and other exogenous substances Plan: stable; same rx (3) Hyperlipidemia: Code(s): E78.5 - Hyperlipidemia, unspecified Plan: stable Orders: Orders Thyroid Stimulating Hormone Today E03.9 - Hypothyroidism, unspecified Comprehensive [place]. Panel Fast Today N28.9 - Disorder of kidney and ureter, unspecified Lipid Panel Today E78.5 - Hyperlipidemia, unspecified Complete Blood Count Auto Diff Today D64.9 - Anemia, unspecified Coding Level of Care Code Est Pt Level 4 (97464) Diagnoses Persistent atrial fibrillation I48.19 Hypothyroidism due to medication E03.2 Hypothyroidism type: due to medication Hyperlipidemia E78.5
[2023-03-13 09:17] VITALS: BP 132/62; PULSE 62; O2SAT 97; BMI 21.6
== END 2023-03-13 09:38 | disposition home or self-care (01) ==
PROVIDERS: PCP Internal Medicine; Visit Provider Internal Medicine
DX: I48.19 Other persistent atrial fibrillation (principal); E03.2 Hypothyroidism due to medicaments and other exogenous substances; E78.5 Hyperlipidemia, unspecified
CPT/HCPCS: 99214

== ENCOUNTER 2023-06-30 06:12 | Outpatient (REF) | payer MEDICARE, OTHER, SELFPAY ==
[2023-06-30 06:27] LABS: MANUAL DIFF FLAG NO
[2023-06-30 07:36] LABS: Basophils Absolute Auto 0.1 X10*3/uL (0.0-0.2); Basophils Percent Auto 0.6 % (0-2); Eosinophils Absolute Auto 0.5 X10*3/uL (0.0-0.4); Eosinophils Percent Auto 6.3 % (0-4); Hematocrit 36.2 % (42.0-52.0); Hemoglobin 12.3 g/dl (14.0-18.0); Imm Gran Abs Auto 0.01 X10*3/uL (0.00-0.03); Imm Gran Pct Auto 0.1 % (0.0-0.4); Lymphocytes Absolute Auto 3.3 X10*3/uL (1.2-4.9); Lymphocytes Percent Auto 40.3 % (20-40); Mean Corpuscular Hemoglobin 32.5 pg (27.0-33.0); Mean Corpuscular Volume 95.5 fL (80.0-98.0); Mean Platelet Volume 10.4 fL (9.4-12.4); Monocytes Absolute Auto 0.8 X10*3/uL (0.1-1.2); Neutrophils Absolute Auto 3.5 x10*3/uL (2.0-8.3); Neutrophils Percent Auto 42.7 % (45-73); Platelet Count 233 X10*3/uL (160-400); Red Blood Count 3.79 X10*6/uL (4.60-5.80); Red Cell Distribution Width 13.1 % (11.0-16.0); White Blood Count 8.1 X10*3/uL (4.8-10.8)
[2023-06-30 08:13] LABS: Digoxin 1.3 ng/mL (0.8-2.0)
[2023-06-30 08:14] LABS: Alanine Aminotransferase 16 U/L (0-40); Alkaline Phosphatase 97 U/L (39-117); Anion Gap 13 (12-20); Aspartate Amino Transferase 23 U/L (5-37); Bilirubin Direct 0.2 mg/dL (0.0-0.5); Bilirubin Total 0.6 mg/dL (0.0-1.0); Blood Urea Nitrogen 16 mg/dL (9-16); Calcium 9.3 mg/dL (8.4-10.2); Carbon Dioxide 30 mmol/L (22-29); Chloride 102 mmol/L (96-108); Cholesterol 173 mg/dL (<200); Estimated Glomerular Filt Rate > 60; Glucose Fasting 94 mg/dL (60-99); Glucose Random 94 mg/dL (60-115); HDL Cholesterol 65 mg/dL (>40); LDL Cholesterol Calculated 98 mg/dL (<100); Potassium 3.6 mmol/L (3.3-5.1); Sodium 141 mmol/L (135-145); Total Protein 7.5 g/dL (6.5-8.0); Triglycerides 54 mg/dL (<150)
[2023-06-30 08:30] LABS: Thyroid Stimulating Hormone 2.97 uIU/mL (0.32-4.0)
== END 2023-06-30 06:13 | disposition home or self-care (01) ==
LOC: HO.LAB 06:12
PROVIDERS: Absent Provider Internal Medicine; PCP Internal Medicine; Visit Provider Internal Medicine
DX: I50.32 Chronic diastolic (congestive) heart failure (principal); I48.19 Other persistent atrial fibrillation; E03.9 Hypothyroidism, unspecified; D64.9 Anemia, unspecified; N28.9 Disorder of kidney and ureter, unspecified; E78.5 Hyperlipidemia, unspecified; Z79.899 Other long term (current) drug therapy
CPT/HCPCS: 36415; 80048; 80053; 80061; 80076; 80162; 82248; 84443; 85025; 85027

== ENCOUNTER 2023-07-14 10:10 | Outpatient (AMB) | payer MEDICARE, OTHER, SELFPAY ==
[2023-07-14 10:13] VITALS: BP 118/60; BMI 23.2
--- NOTE | 2023-07-14 10:13 | A.OFFPC_ITS ---
Vital Signs 07/14/23 10:13 Height 5 ft 7 in Weight 148 lb 6 oz BMI 23.2 BP 118/60 Blood Pressure Location Lt brachial Position Sitting Pulse Source Pulse Oximeter Oxygen Delivery Method Room Air Intake Visit Reasons: 3m FU , rescheduled from 06/12 Bodywork Therapist Required: No Dental Hygiene Instructor: Present Allergies No Known Allergies [No Known Allergies*] Allergy (Verified 07/14/23 10:13) Medication List - Last Reconciled 07/14/23 by Sinan Luis MD albuterol sulfate 90 mcg/actuation 2 puffs inhalation Q4-6H PRN digoxin 125 mcg PO DAILY diltiazem HCl ER 180 mg PO BID 90 days furosemide 40 mg PO BID levothyroxine 50 mcg PO DAILY rivaroxaban (Xarelto) 20 mg PO DAILY Tobacco use date assessed: 09/09/22 Fall risk assessment: No Falls in past year Last assessed Fall Risk: 07/14/23 Dental Screening Dental Screen Date: 07/14/23 Did you have a dental visit in the last 12 months?: No Did you have a dental problem in the last 6 months where you did not have access to dental care?: No Was dental information given to patient?: Patient has dentist HPI 3m FU , rescheduled from 06/12 HPI Details afib, hypothyroidism and asthma; stable abd doig well PFSH Medical History Chronic heart failure with preserved ejection fraction (HFpEF) Non-rheumatic aortic stenosis Persistent atrial fibrillation Afib Hypothyroidism Surgical History H/O prostatectomy Family History Father Alzheimers disease Mental health disorder Mother Dementia Mental health disorder Social History Housing: House Alcohol intake: current Alcohol intake frequency: holidays/special occasions only Patient Tobacco Use Status: Current everyday Tobacco user Tobacco use type: Cigarette Cigarette Packs Per Day: 0.5 Cigarettes Per Day: 10 Years Smoked: 45 +/- e-Cigarette/Vaping Use: Never Used Second Hand Smoke Exposure: Yes service: No Current occupational status: retired Cognitive needs: No Hearing needs: No Vision needs: Yes Questionnaire PHQ-9 Over the last 2 weeks, how often have you been bothered by any of the following problems? 1. Little interest or pleasure in doing things: not at all 2. Feeling down, depressed, or hopeless: not at all 3. Trouble falling or staying asleep, or sleeping too much: not at all 4. Feeling tired or having little energy: not at all 5. Poor appetite or overeating: not at all 6. Feeling bad about yourself - or that you are a failure or have let yourself or your family down: not at all 7. Trouble concentrating on things, such as reading the newspaper or watching television: not at all 8. Moving or speaking so slowly that other people could have noticed. Or the opposite - being so fidgety or restless that you have been moving around a lot more than usual: not at all 9. Thoughts that you would be better off or of hurting yourself in some way: not at all Total score: 0 Depression Screening Interpretation: Negative Depression Screening Done: Yes [id number] - PHQ-9 Billing: Yes Source: Developed by Drs. Frandy Li, Helena Mtz, Sadi De Guzman and colleagues, with an educational kell from [employer]. Thrive Questionnaire Date Thrive assessed: 07/14/23 I am a: Patient What is your living situation today?: I have a steady place to live Within the past 12 months, did the food you bought not last and you didn't have the money to get more?: Never true Within the past 12 months, did you worry whether your food would run out before you got money to buy more?: Never true Do you have trouble paying for medicines?: No Do you have trouble getting transportation to medical appointments?: No Do you have trouble paying your heating and electricity bill?: No Do you have trouble taking care of your child, family member or friend?: No Do you have trouble with day-to-day activities such as bathing, preparing meals, shopping, managing finances, etc.?: No Are you currently unemployed and looking for a job?: No Are you interested in more education?: No Please select the resources that you would like help with: None AUDIT C Alcohol Use Questionnaire (AUDIT-C) 1. How often do you have a drink containing alcohol?: Monthly or less 2. How many drinks containing alcohol do you have on a typical day when you are drinking?: 1 or 2 3. How often do you have six or more drinks on one occasion?: Never Total Score: 1 Score Reviewed/Action Taken: Yes JELANI-7 AMB Questionnaire JELANI-7 Date JELANI - 7 assessed: 07/14/23 Feeling nervous, anxious, or on edge: 0 = Not at all Not being able to stop or control worryin = Not at all Worrying too much about different things: 0 = Not at all Trouble relaxin = Not at all Being so restless that it is hard to sit still: 0 = Not at all Becoming easily annoyed or irritable: 0 = Not at all Feeling afraid as if something awful might happen: 0 = Not at all Total JELANI-7 score (0-4 normal; 5-9 mild; 10-14 moderate; 15-21 severe): 0 Source: Developed by Drs. Frandy Li, Helena Mtz, Sadi De Guzman and colleagues, with an educational kell from [employer]. JELANI-7 Assessment Billing JELANI-7 Assessment Tool: JELANI-7 Assessment 75507 Review of Systems Const Denies chills, Denies headache(s) and Denies weight loss ENT Denies headache(s) Card Denies chest pain, Denies syncope, Denies irregular heart rhythm and Denies dyspnea Resp Denies chest congestion, Denies cough and Denies dyspnea GI Denies abdominal pain, Denies change in stool character, Denies nausea and Denies vomiting Musc Denies deformity and Denies joint swelling Neuro Denies syncope and Denies headache(s) Physical exam (Primary Care) Vital Signs: Last Vital Signs BP 118/60 07/14/23 10:13 Oxygen Delivery Method Room Air 07/14/23 10:13 BMI result Body Mass Index 23.2 Tobacco/Smoking Status: Tobacco use Status Tobacco use date assessed 09/09/22 07/14/23 10:14 Patient Tobacco Use Status Current everyday Tobacco 07/14/23 10:14 Tobacco use type Cigarette 07/14/23 10:14 e-Cigarette/Vaping Use Never Used 07/14/23 10:14 PHQ-9: PHQ-9 Score PHQ-9: Total score 0 07/14/23 10:22 Depression Screening Interpretation: Negative Thrive Assessment: Date of Thrive Assessment Date Thrive assessed 07/14/23 07/14/23 10:14 Const General: cooperative, comfortable, no acute distress and alert Neck Neck: Yes no lymphadenopathy Thyroid: Thyroid normal Resp Effort & Inspection: normal respiratory effort Auscultation: clear to auscultation bilaterally Percussion: percussion normal Cardio Jugular venous distension: no JVD Palpation: normal PMI Rate: regular rate Rhythm: regular rhythm Heart sounds: S1 normal heart sound present and S2 normal heart sound present GI Inspection: Yes normal to inspection Palpation (GI): No hepatosplenomegaly present Skin General skin exam: no rashes or lesions noted Extrem General: Yes no clubbing, cyanosis or edema Assessment and Plan Assessment & Plan (1) Asthma: Code(s): J45.909 - Unspecified asthma, uncomplicated Plan: stable; same rx (2) Hypothyroidism: Code(s): E03.9 - Hypothyroidism, unspecified Qualifiers: Hypothyroidism type: due to medication Qualified Code(s): E03.2 - Hyp othyroidism due to medicaments and other exogenous substances Plan: stable; same rx (3) Persistent atrial fibrillation: Code(s): I48.19 - Other persistent atrial fibrillation Plan: stable; same rx Orders: Orders CT head/brain wo IV con Today R41.89 - Other symptoms and signs involving cognitive functions and awareness Erythrocyte Sedimentation Rate Today R41.89 - Other symptoms and signs involving cognitive functions and awareness Vitamin B12 Today R41.89 - Other symptoms and signs involving cognitive functions and awareness Coding Level of Care Code Est Pt Level 4 (69651) Diagnoses Asthma J45.909 Hypothyroidism due to medication E03.2 Hypothyroidism type: due to medication Persistent atrial fibrillation I48.19 Additional Codes JELANI-7 Assessment Billing - JELANI-7 Assessment Tool: JELANI-7 Assessment 07008 ([id number])
== END 2023-07-14 10:36 | disposition home or self-care (01) ==
PROVIDERS: PCP Internal Medicine; Visit Provider Internal Medicine
DX: J45.909 Unspecified asthma, uncomplicated (principal); E03.2 Hypothyroidism due to medicaments and other exogenous substances; I48.19 Other persistent atrial fibrillation
CPT/HCPCS: 99214

== ENCOUNTER 2023-07-20 06:10 | Outpatient (REF) | payer MEDICARE, OTHER, SELFPAY ==
[2023-07-20 08:30] LABS: Vitamin B12 278 pg/mL (200-900)
[2023-07-20 08:34] LABS: Erythrocyte Sedimentation Rate 37 MM/HR (0-15)
== END 2023-07-20 06:11 | disposition home or self-care (01) ==
LOC: HO.LAB 06:10
PROVIDERS: PCP Internal Medicine; Visit Provider Internal Medicine
DX: R41.89 Other symptoms and signs involving cognitive functions and awareness (principal)
CPT/HCPCS: 36415; 82607; 85652

== ENCOUNTER 2023-07-27 07:37 | Outpatient (REF) | payer MEDICARE, OTHER, SELFPAY ==
--- NOTE | ~2023-07-27 | CT_ITS ---
EXAMINATION: CT HEAD WITHOUT CONTRAST CLINICAL INFORMATION: Change in cognitive function and awareness. COMPARISON: Head CT from 05/20/2019. TECHNIQUE: Contiguous axial imaging was performed from the skullbase to vertex without intravenous administration of contrast. This CT examination was performed using dose optimization techniques as appropriate, variously including the following: *Automated exposure control *Adjustment of mA and/or kV according to patient size (this includes techniques or standardized protocols for targeted exams where dose is matched to indication/reason for exam; i.e. extremities or head) *Use of iterative reconstruction technique DLP: 892 mGy-cm. FINDINGS: There is no evidence of acute intracranial hemorrhage or territorial infarction. No abnormal mass effect or midline shift is seen. [place] to white matter differentiation is well preserved. No extra-axial fluid collections are identified. Moderate diffuse brain parenchymal volume loss has slightly progressed. Moderate chronic white matter microangiopathy also worsened from prior imaging. The osseous structures and soft tissues are normal. The mastoid air cells and visualized portions of the paranasal sinuses are well aerated. CT/CT head/brain wo IV con IMPRESSION: No acute intracranial hemorrhage or territorial infarction. Progressed moderate diffuse brain parenchymal volume loss and chronic white matter microangiopathy.
== END 2023-07-27 07:38 | disposition home or self-care (01) ==
LOC: HO.CT 07:37
PROVIDERS: PCP Internal Medicine; Visit Provider Internal Medicine
DX: R41.89 Other symptoms and signs involving cognitive functions and awareness (principal)
CPT/HCPCS: 70450

== ENCOUNTER 2023-10-20 11:31 | Outpatient (AMB) | payer MEDICARE, OTHER, SELFPAY ==
[2023-10-20 11:41] VITALS: BP 110/60; PULSE 58; BMI 23.0
--- NOTE | 2023-10-20 11:41 | MHC.PC.OV ---
Vital Signs 10/20/23 11:41 Height 5 ft 7 in Weight 147 lb BMI 23.0 BP 110/60 Blood Pressure Location Lt brachial Position Sitting Pulse 58 Pulse Source Pulse Oximeter Oxygen Delivery Method Room Air Intake Visit Reasons: 3 month f/u Allergies No Known Allergies [No Known Allergies*] Allergy (Verified 10/20/23 11:43) Medication List - Last Reconciled 10/20/23 by Sinan Luis MD albuterol sulfate 90 mcg/actuation 2 puffs inhalation Q4-6H PRN digoxin 125 mcg PO DAILY diltiazem HCl ER 180 mg PO BID 90 days furosemide 40 mg PO BID levothyroxine 50 mcg PO DAILY rivaroxaban (Xarelto) 20 mg PO DAILY Tobacco use date assessed: 10/20/23 Fall risk assessment: No Falls in past year Last assessed Fall Risk: 10/20/23 Dental Screening Dental Screen Date: 07/14/23 HPI 3 month f/u HPI Details hypothyroidism atrial fib and mild dementia; stable; compliant [facility] Medical History Chronic heart failure with preserved ejection fraction (HFpEF) Non-rheumatic aortic stenosis Persistent atrial fibrillation Afib Hypothyroidism Surgical History H/O prostatectomy Family History Father Alzheimers disease Mental health disorder Mother Dementia Mental health disorder Social History Housing: House Alcohol intake: current Alcohol intake frequency: holidays/special occasions only Patient Tobacco Use Status: Current everyday Tobacco user Tobacco use type: Cigarette Cigarette Packs Per Day: 0.5 Cigarettes Per Day: 10 Years Smoked: 45 +/- e-Cigarette/Vaping Use: Never Used Second Hand Smoke Exposure: Yes service: No Current occupational status: retired Cognitive needs: No Hearing needs: No Vision needs: Yes Questionnaire Thrive Questionnaire Date Thrive assessed: 07/14/23 AUDIT C Alcohol Use Questionnaire (AUDIT-C) 1. How often do you have a drink containing alcohol?: Monthly or less 2. How many drinks containing alcohol do you have on a typical day when you are drinking?: 1 or 2 3. How often do you have six or more drinks on one occasion?: Never Total Score: 1 Score Reviewed/Action Taken: Yes JELANI-7 AMB Questionnaire JELANI-7 Date JELANI - 7 assessed: 07/14/23 Source: Developed by Drs. Fradny Li, Helena Mtz, Sadi De Guzman and colleagues, with an educational kell from [employer]. Review of Systems Const Denies chills, Denies headache(s) and Denies weight loss ENT Denies headache(s) Card Denies chest pain, Denies syncope, Denies irregular heart rhythm and Denies dyspnea Resp Denies chest congestion, Denies cough and Denies dyspnea GI Denies abdominal pain, Denies change in stool character, Denies nausea and Denies vomiting Musc Denies deformity and Denies joint swelling Neuro Denies syncope and Denies headache(s) Physical exam (Primary Care) Vital Signs: Last Vital Signs Pulse 58 10/20/23 11:41 BP 110/60 10/20/23 11:41 Oxygen Delivery Method Room Air 10/20/23 11:41 BMI result Body Mass Index 23.0 Tobacco/Smoking Status: Tobacco use Status Tobacco use date assessed 10/20/23 10/20/23 11:46 Patient Tobacco Use Status Current everyday Tobacco 10/20/23 11:46 Tobacco use type Cigarette 10/20/23 11:46 e-Cigarette/Vaping Use Never Used 10/20/23 11:46 Thrive Assessment: Date of Thrive Assessment Date Thrive assessed 07/14/23 10/20/23 11:46 Const General: cooperative, comfortable, no acute distress and alert Neck Neck: Yes no lymphadenopathy Thyroid: Thyroid normal Resp Effort & Inspection: normal respiratory effort Auscultation: clear to auscultation bilaterally Percussion: percussion normal Cardio Jugular venous distension: no JVD Palpation: normal PMI Rate: regular rate Rhythm: regular rhythm Heart sounds: S1 normal heart sound present and S2 normal heart sound present GI Inspection: Yes normal to inspection Palpation (GI): No hepatosplenomegaly present Skin General skin exam: no rashes or lesions noted Extrem General: Yes no clubbing, cyanosis or edema Assessment and Plan Assessment & Plan (1) Hyperlipidemia: Code(s): E78.5 - Hyperlipidemia, unspecified Plan: stable; same rx (2) Persistent atrial fibrillation: Code(s): I48.19 - Other persistent atrial fibrillation Plan: stable; same rx (3) Hypothyroidism: Code(s): E03.9 - Hypothyroidism, unspecified Qualifiers: Hypothyroidism type: due to medication Qualified Code(s): E03.2 - Hypothyroidism due to medicaments and other exogenous substances Plan: stable; same rx Orders: Orders Lipid Panel Today Z13.220 - Encounter for screening for lipoid disorders Thyroid Stimulating Hormone Today Z13.29 - Encounter for screening for other suspected endocrine disorder Comprehensive [place]. Panel Fast Today Z13.9 - Encounter for screening, unspecified Complete Blood Count Auto Diff Today Z13.0 - Encounter for screening for diseases of the blood and blood-forming organs and certain disorders involving the immune mechanism Coding Level of Care Code Est Pt Level 4 (26693) Diagnoses Hyperlipidemia E78.5 Persistent atrial fibrillation I48.19 Hypothyroidism due to medication E03.2 Hypothyroidism type: due to medication
== END 2023-10-20 12:11 | disposition home or self-care (01) ==
PROVIDERS: PCP Internal Medicine; Visit Provider Internal Medicine
DX: E78.5 Hyperlipidemia, unspecified (principal); I48.19 Other persistent atrial fibrillation; E03.2 Hypothyroidism due to medicaments and other exogenous substances
CPT/HCPCS: 99214

== ENCOUNTER → 2024-03-02 08:08 | Outpatient (REF) | payer MEDICARE, OTHER, SELFPAY ==
--- NOTE | 2024-03-02 08:12 | CA_ITS ---
Transthoracic Echocardiogram Patient (Last, First, Middle): Balwinder Clay A Gender: Male Date of : 1940 Age: 83 Procedure Date: 03/02/2024 Procedure Type: Transthoracic Echocardiogram Location: OP Height: 170.18 cm Weight: 81.65 kg BSA: 1.93 m2 Heart Rate: 60 bpm BP: 138 / 50 mmHg Pulmonary Disease Specialist: TOMY Vega MD: Tunde Spring MD Roofing Apprentice: Rafael Chow MD Symptoms: I35.0 - Nonrheumatic aortic (valve) stenosis Study Quality: Fair ECG Rhythm: Atrial Fibrillation Conclusions: - 1. Normal LV ejection fraction 55-60% 2. At least moderately dilated left atrium 3. Gdvq-dm-zsczrudw aortic stenosis 4. Mildly dilated ascending aorta 3.9 cm 5. Normal RV systolic pressure 6. No gross pericardial effusion Findings Left Ventricle Normal left ventricular size, thickness, and systolic function. The visually estimated ejection fraction is between 55-60%. Diastolic function is indeterminate on the basis of available data. Right Ventricle Normal right ventricular cavity size and systolic function. Atria The left atrium is moderately dilated. There is lipomatous hypertrophy of the interatrial septum. There is no evidence of interatrial shunt. The right atrium is mildly dilated. Aortic Valve There is moderate calcification of the aortic valve. There is moderate thickening of the aortic valve. There is mild to moderate aortic valve stenosis. The peak aortic gradient is 22 mmHg.The mean gradient is 12 mmHg. The aortic valve area is 1.60 cm2. There is no aortic valve regurgitation. Mitral Valve There is moderate anterior and posterior mitral leaflet thickening. There is moderate mitral annular calcification. There is mild mitral valve regurgitation. There is no mitral valve stenosis. Pulmonic Valve The pulmonic valve was not well visualized. Tricuspid Valve Likely normal tricuspid valve structure and function. There is mild tricuspid valve regurgitation. The right ventricular systolic pressure is normal. The right ventricular systolic pressure is 25 mmHg. Normal right atrial pressure. There is no evidence of pulmonary hypertension. Great Vessels The pulmonary artery was not well visualized. There is mild dilatation of the ascending aorta measuring 3.90 cm. Venous The inferior vena cava is normal in size and collapses greater than 50% with inspiration. Pericardium/Pleural There is no evidence of pericardial effusion. Prior Study Comparison Changes noted compared to prior study dated: 12/09/2022. Aortic stenosis is in the range of ngxf-[id number] severity Measurements 2D Linear Measurements IVSd: 0.94 0.6-0.9/0.6-1.0 cm LVIDd: 4.86 3.9-5.3/4.2-5.9 cm LVIDd Index: 2.52 2.4-3.2/2.2-3.1 cm/m2 LVIDs: 3.45 2.0-3.6 cm LVPWd: 1.04 0.7-1.1 cm LA Diam: 3.40 2.7-3.8/3.0-4.0 cm LAIDs Index: 1.76 1.5-2.3 cm/m2 LV Mass: 213.43 67-162/88-224 g LV Mass Index: 110.59 43-95/49-115 g/m2 LVOT Diam: 2.30 3.0+(-)1.3 cm 2D Systolic Function EF 4C: 60.40 >55% EF 2C: 59.10 >55% EF BiP: 59.00 >55% Mitral Valve MV VTI: 0.36 MV Pk Garrett: 1.59 MV Mn Garrett: 0.74 MV Pk Grad: 10.00 MV Mn Grad: 3.00 MV Pk E: 1.57 MV Decel Time: 157.00 E'Lateral: 10.00 E'Medial: 7.58 E/E' Med: 20.70 E/E' Lat: 15.70 PHT: 46.00 MVA PHT: 4.78 MVA Continuity: 2.39 Decel Hutchinson: 10.00 Aortic Valve AoV Pk Garrett: 2.35 AoV Mn Garrett: 1.61 AoV VTI: 0.53 AoV Pk Grad: 22.00 Aov Mn Grad: 12.00 PEEWEE Cont.VTI: 1.60 AI Pk Garrett: 3.43 AI Hutchinson: 1.76 LVOT LVOT Pk Garrett: 0.86 LVOT Mn Garrett: 0.65 LVOT VTI: 0.21 LVOT Pk Grad: 3.00 LVOT Mn Grad: 2.00 LVOT Diam: 2.30 LVOT Area: 4.15 Diastolic Function MV Pk E: 1.57 E'Medial: 7.58 E/E' Med: 20.70 E' Laterial: 10.00 E/E' Lat: 15.70 Right Ventricle TAPSE (mm): 18.27 TVS' Garrett: 8.88 Tricuspid Valve TR Pk Garrett: 2.05 TR Pk Grad: 17.00 RA Press: 8.00 RVSP: 25.00 Great Vessels Aorta Sinus of Valsalva: 3.90 2.0-3.5 cm Ao Asc: 3.90 2.1-3.4 cm Ao Arch: 3.50 Pulmonary Valve PV Pk Garrett: 0.56 Peak PV Grad: 1.00 Updated in Other Vendor System with Status of Final Rafael Chow MD electronically signed on 03/02/2024 2:27:27 PM with status of Final
== END ==
LOC: HO.CARD 08:08
PROVIDERS: PCP Internal Medicine; Visit Provider Internal Medicine
DX: I35.0 Nonrheumatic aortic (valve) stenosis (principal)
CPT/HCPCS: 93306

== ENCOUNTER → 2024-03-02 08:12 | Outpatient (BNV) | payer MEDICARE, OTHER, SELFPAY | PROVIDERS: PCP Internal Medicine; Visit Provider Internal Medicine Cardiovascular Disease | DX: I35.0 Nonrheumatic aortic (valve) stenosis (principal); I34.0 Nonrheumatic mitral (valve) insufficiency; I36.1 Nonrheumatic tricuspid (valve) insufficiency; I35.8 Other nonrheumatic aortic valve disorders | CPT/HCPCS: 93306 ==

== ENCOUNTER 2024-03-15 10:33 | Outpatient (AMB) | payer MEDICARE, OTHER, SELFPAY ==
[2024-03-15 10:45] VITALS: BP 120/62; PULSE 72; BMI 23.0
--- NOTE | 2024-03-15 10:45 | MHC.OFFVIS ---
Vital Signs 03/15/24 10:45 Height 5 ft 7 in Weight 146 lb 13.246 oz BMI 23.0 BP 120/62 Blood Pressure Location Lt brachial Position Sitting Pulse 72 Pulse Source Monitor Intake Visit Reasons: 1Y w/ Echo Mat Machine Operator Required: No Accompanied by: Self / Same As Patient Allergies No Known Allergies [No Known Allergies*] Allergy (Verified 10/20/23 11:43) Medication List - Last Reconciled 03/15/24 by Tunde Spring MD albuterol sulfate 90 mcg/actuation 2 puffs inhalation Q4-6H PRN digoxin 125 mcg PO DAILY diltiazem HCl ER 180 mg PO BID 90 days furosemide 40 mg PO BID levothyroxine 50 mcg PO DAILY rivaroxaban (Xarelto) 20 mg PO DAILY HPI Comments Details: Balwinder returns for follow-up regarding atrial fibrillation, aortic stenosis, congestive heart failure. Nonspecific complaints like feeling cold and needing many layers. He has been this way for a long time. Some degree of tiredness and exercise intolerance. Otherwise no clear-cut complaints like angina. [facility] Medical History Chronic heart failure with preserved ejection fraction (HFpEF) Non-rheumatic aortic stenosis Persistent atrial fibrillation Afib Hypothyroidism Surgical History H/O prostatectomy Family History Father Alzheimers disease Mental health disorder Mother Dementia Mental health disorder Social History Housing: House Alcohol intake: current Alcohol intake frequency: holidays/special occasions only Patient Tobacco Use Status: Current everyday Tobacco user Tobacco use type: Cigarette Cigarette Packs Per Day: 0.5 Cigarettes Per Day: 10 Years Smoked: 45 +/- e-Cigarette/Vaping Use: Never Used Second Hand Smoke Exposure: Yes service: No Current occupational status: retired Cognitive needs: No Hearing needs: No Vision needs: Yes Review of Systems Const Denies chills, Denies fatigue, Denies fever(s), Denies frequent falls, Denies weakness, Denies weight gain and Denies weight loss ENT Denies dizziness Card Denies chest pain, Denies leg edema, Denies lightheadedness, Denies palpitations, Denies dyspnea and Denies dyspnea on exertion Resp Denies cough, Denies dyspnea and Denies dyspnea on exertion GI Denies hematochezia Musc Denies abnormal gait, Denies muscle weakness, Denies numbness, Denies radiating pain into limb and Denies tingling Neuro Denies abnormal gait, Denies dizziness, Denies frequent falls, Denies numbness, Denies tingling and Denies weakness Endo Denies fatigue and Denies palpitations Physical Exam Vital Signs: Last Vital Signs Pulse 72 03/15/24 10:45 BP 120/62 03/15/24 10:45 BMI result Body Mass Index 23.0 Const General: comfortable and no acute distress Orientation/consciousness: patient oriented x3 HEENT Other: Unremarkable Head: Yes normal to inspection Neck Neck: Yes normal visual inspection Chest Chest palpation & inspection: normal inspection of the chest Resp Other: Minimal crackles at bases. Cardio Palpation: normal PMI Heart sounds: S1 normal heart sound present, S2 normal heart sound present, no gallops, Murmur heart sound present systolic II/ and at the right sternal border and no rubs GI Palpation (GI): Soft to palpation Back/Spine/Pelvis Other: unremarkable Skin General skin exam: no rashes or lesions noted Neuro General: patient oriented x3 Extrem General: Yes normal to inspection Psych Mental Status: mental status grossly normal Office Procedures EKG Details: EKG with baseline artifact; underlying atrial fibrillation; right bundle-branch block pattern and can not exclude old inferior infarct. Similar to prior. [id number], Complete Assessment & Plan Assessment & Plan (1) Persistent atrial fibrillation: Code(s): I48.19 - Other persistent atrial fibrillation Category: Medical Plan: Essentially permanent atrial fibrillation on rate control including diltiazem and digoxin. Check digoxin levels. Remains on Xarelto. (2) Non-rheumatic aortic stenosis: Code(s): I35.0 - Nonrheumatic aortic (valve) stenosis Category: Medical Plan: Echocardiogram with preserved LVEF, 55-60%; moderately calcified aortic valve with hiwt-js-aqxmtsru stenosis. Monitored periodically. (3) Chronic heart failure with preserved ejection fraction (HFpEF): Code(s): I50.32 - Chronic diastolic (congestive) heart failure Category: Medical Plan: Preserved LVEF in the last echocardiogram. Thought to have had normal right atrial pressure with no evidence of pulmonary hypertension. Clinically, no overt CHF. Continue diuretics. Plan With regard to complaints of feeling cold, fatigue, check labs. There is already an order for the same. Check digoxin level as well. If any concerning symptoms like angina, advised him to contact us immediately. Discussed with significant other who came for appointment. Orders: Orders CA echo transthoracic complete 1 Year I35.0 - Nonrheumatic aortic (valve) stenosis Digoxin Today I48.19 - Other persistent atrial fibrillation Coding Level of Care Code Est Pt Level 4 (58869) Diagnoses Persistent atrial fibrillation I48.19 Non-rheumatic aortic stenosis I35.0 Chronic heart failure with preserved ejection fraction (HFpEF) I50.32 CPT Codes EKG - CPT: 14906-[id number], Complete ([id number])
== END 2024-03-15 11:11 | disposition home or self-care (01) ==
PROVIDERS: PCP Internal Medicine; Visit Provider Internal Medicine
DX: I48.19 Other persistent atrial fibrillation (principal); I35.0 Nonrheumatic aortic (valve) stenosis; I50.32 Chronic diastolic (congestive) heart failure
CPT/HCPCS: 93010; 99214

== ENCOUNTER → 2024-03-15 10:33 | Outpatient (BNVA) | payer MEDICARE, OTHER, SELFPAY | PROVIDERS: PCP Internal Medicine; Visit Provider Internal Medicine | DX: I48.19 Other persistent atrial fibrillation (principal); I50.32 Chronic diastolic (congestive) heart failure; I35.0 Nonrheumatic aortic (valve) stenosis; F17.210 Nicotine dependence, cigarettes, uncomplicated | CPT/HCPCS: 93005; 99212 ==

== ENCOUNTER 2024-03-24 05:57 | Outpatient (REF) | payer MEDICARE, OTHER, SELFPAY ==
[2024-03-24 06:07] LABS: MANUAL DIFF FLAG NO
[2024-03-24 07:20] LABS: Basophils Absolute Auto 0.1 X10*3/uL (0.0-0.2); Basophils Percent Auto 1.1 % (0-2); Eosinophils Absolute Auto 0.5 X10*3/uL (0.0-0.4); Eosinophils Percent Auto 5.8 % (0-4); Hemoglobin 13.4 g/dl (14.0-18.0); Imm Gran Abs Auto 0.03 X10*3/uL (0.00-0.03); Imm Gran Pct Auto 0.3 % (0.0-0.4); Lymphocytes Absolute Auto 3.4 X10*3/uL (1.2-4.9); Lymphocytes Percent Auto 37.4 % (20-40); Mean Corpuscular HGB Conc 35.3 g/dl (31.0-36.0); Mean Corpuscular Hemoglobin 32.9 pg (27.0-33.0); Mean Corpuscular Volume 93.4 fL (80.0-98.0); Mean Platelet Volume 10.6 fL (9.4-12.4); Monocytes Absolute Auto 0.9 X10*3/uL (0.1-1.2); Monocytes Percent Auto 9.8 % (2-11); Neutrophils Absolute Auto 4.1 x10*3/uL (2.0-8.3); Neutrophils Percent Auto 45.6 % (45-73); Platelet Count 258 X10*3/uL (160-400); Red Blood Count 4.07 X10*6/uL (4.60-5.80); Red Cell Distribution Width 12.8 % (11.0-16.0); White Blood Count 9.1 X10*3/uL (4.8-10.8)
[2024-03-24 07:41] LABS: Digoxin 0.5 ng/mL (0.8-2.0)
[2024-03-24 07:52] LABS: Alanine Aminotransferase 16 U/L (0-40); Albumin Level 4.1 g/dL (3.5-5.0); Alkaline Phosphatase 114 U/L (39-117); Anion Gap 11 (12-20); Aspartate Amino Transferase 21 U/L (5-37); Bilirubin Total 0.6 mg/dL (0.0-1.0); Blood Urea Nitrogen 15 mg/dL (9-16); Calcium 9.2 mg/dL (8.4-10.2); Carbon Dioxide 31 mmol/L (22-29); Chloride 102 mmol/L (96-108); Cholesterol 191 mg/dL (<200); Estimated Glomerular Filt Rate > 60; Glucose Fasting 100 mg/dL (60-99); HDL Cholesterol 63 mg/dL (>40); LDL Cholesterol Calculated 116 mg/dL (<100); Potassium 3.6 mmol/L (3.3-5.1); Sodium 140 mmol/L (135-145); Total Protein 7.7 g/dL (6.5-8.0); Triglycerides 61 mg/dL (<150)
[2024-03-24 08:06] LABS: Thyroid Stimulating Hormone 2.72 uIU/mL (0.32-4.0)
== END 2024-03-24 05:58 | disposition home or self-care (01) ==
LOC: HO.LAB 05:57
PROVIDERS: Absent Provider Internal Medicine; PCP Internal Medicine; Visit Provider Internal Medicine
DX: Z13.0 Encounter for screening for diseases of the blood and blood-forming organs and certain disorders involving the immune mechanism (principal); Z13.220 Encounter for screening for lipoid disorders; Z13.29 Encounter for screening for other suspected endocrine disorder; Z13.9 Encounter for screening, unspecified; I48.19 Other persistent atrial fibrillation
CPT/HCPCS: 36415; 80053; 80061; 80162; 84443; 85025

== ENCOUNTER 2024-04-20 08:10 | Outpatient (AMB) | payer MEDICARE, OTHER, SELFPAY ==
[2024-04-20 08:35] VITALS: BP 108/64; PULSE 77; O2SAT 98; BMI 23.2
--- NOTE | 2024-04-20 08:35 | MHC.PC.OV ---
Vital Signs 04/20/24 08:35 Height 5 ft 7 in Weight 148 lb BMI 23.2 BP 108/64 Blood Pressure Location Lt brachial Position Sitting Pulse 77 Pulse Source Pulse Oximeter Pulse Oximetry (%) 98 Intake Visit Reasons: 6mth f/u Desktop Operator Required: No Allergies No Known Allergies [No Known Allergies*] Allergy (Verified 04/20/24 08:36) Medication List - Last Reconciled 04/20/24 by Sinan Luis MD albuterol sulfate 90 mcg/actuation 2 puffs inhalation Q4-6H PRN digoxin 125 mcg PO DAILY diltiazem HCl ER 180 mg PO BID 90 days furosemide 40 mg PO BID levothyroxine 50 mcg PO DAILY rivaroxaban (Xarelto) 20 mg PO DAILY Tobacco use date assessed: 10/20/23 Fall risk assessment: No Falls in past year Last assessed Fall Risk: 04/20/24 Dental Screening Dental Screen Date: 07/14/23 HPI 6mth f/u HPI Details hypothyroidism on rx; doing well and compliant [facility] Medical History Chronic heart failure with preserved ejection fraction (HFpEF) Non-rheumatic aortic stenosis Persistent atrial fibrillation Afib Hypothyroidism Surgical History H/O prostatectomy Family History Father Alzheimers disease Mental health disorder Mother Dementia Mental health disorder Social History Housing: House Alcohol intake: current Alcohol intake frequency: holidays/special occasions only Patient Tobacco Use Status: Current everyday Tobacco user Tobacco use type: Cigarette Cigarette Packs Per Day: 0.5 Cigarettes Per Day: 10 Years Smoked: 45 +/- e-Cigarette/Vaping Use: Never Used Second Hand Smoke Exposure: Yes service: No Current occupational status: retired Cognitive needs: No Hearing needs: No Vision needs: Yes Questionnaire PHQ-9 Over the last 2 weeks, how often have you been bothered by any of the following problems? 1. Little interest or pleasure in doing things: not at all 2. Feeling down, depressed, or hopeless: not at all 3. Trouble falling or staying asleep, or sleeping too much: not at all 4. Feeling tired or having little energy: not at all 5. Poor appetite or overeating: not at all 6. Feeling bad about yourself - or that you are a failure or have let yourself or your family down: not at all 7. Trouble concentrating on things, such as reading the newspaper or watching television: not at all 8. Moving or speaking so slowly that other people could have noticed. Or the opposite - being so fidgety or restless that you have been moving around a lot more than usual: not at all 9. Thoughts that you would be better off or of hurting yourself in some way: not at all Total score: 0 Depression Screening Interpretation: Negative Depression Screening Done: Yes 44590 - PHQ-9 Billing: Yes Source: Developed by Drs. Frandy Li, Helena Mtz, Sadi De Guzman and colleagues, with an educational kell from [email or web address]. Thrive Questionnaire Date Thrive assessed: 07/14/23 Are you currently unemployed and looking for a job?: No AUDIT C Alcohol Use Questionnaire (AUDIT-C) 1. How often do you have a drink containing alcohol?: Monthly or less 2. How many drinks containing alcohol do you have on a typical day when you are drinking?: 1 or 2 3. How often do you have six or more drinks on one occasion?: Never Total Score: 1 Score Reviewed/Action Taken: Yes JELANI-7 AMB Questionnaire JELANI-7 Date JELANI - 7 assessed: 07/14/23 Source: Developed by Drs. Frandy Li, Helena Mtz, Sadi De Guzman and colleagues, with an educational kell from [email or web address]. Review of Systems Const Denies chills, Denies headache(s) and Denies weight loss ENT Denies headache(s) Card Denies chest pain, Denies syncope, Denies irregular heart rhythm and Denies dyspnea Resp Denies chest congestion, Denies cough and Denies dyspnea GI Denies abdominal pain, Denies change in stool character, Denies nausea and Denies vomiting Musc Denies deformity and Denies joint swelling Neuro Denies syncope and Denies headache(s) Physical exam (Primary Care) Vital Signs: Last Vital Signs Pulse 77 04/20/24 08:35 BP 108/64 04/20/24 08:35 Pulse Ox 98 04/20/24 08:35 BMI result Body Mass Index 23.2 Tobacco/Smoking Status: Tobacco use Status Tobacco use date assessed 10/20/23 04/20/24 08:40 Patient Tobacco Use Status Current everyday Tobacco 04/20/24 08:40 Tobacco use type Cigarette 04/20/24 08:40 e-Cigarette/Vaping Use Never Used 04/20/24 08:40 PHQ-9: PHQ-9 Score PHQ-9: Total score 0 04/20/24 08:40 Depression Screening Interpretation: Negative Thrive Assessment: Date of Thrive Assessment Date Thrive assessed 07/14/23 04/20/24 08:40 Const General: cooperative, comfortable, no acute distress and alert Neck Neck: Yes no lymphadenopathy Thyroid: Thyroid normal Resp Effort & Inspection: normal respiratory effort Auscultation: clear to auscultation bilaterally Percussion: percussion normal Cardio Jugular venous distension: no JVD Palpation: normal PMI Rate: regular rate Rhythm: regular rhythm Heart sounds: S1 normal heart sound present and S2 normal heart sound present GI Inspection: Yes normal to inspection Palpation (GI): No hepatosplenomegaly present Skin General skin exam: no rashes or lesions noted Extrem General: Yes no clubbing, cyanosis or edema Coding Level of Care Code Est Pt Level 3 (33202) Diagnoses Hypothyroidism due to medication E03.2 Hypothyroidism type: due to medication Persistent atrial fibrillation I48.19 Assessment & Plan Assessment & Plan (1) Hypothyroidism: Code(s): E03.9 - Hypothyroidism, unspecified Category: Medical Qualifiers: Hypothyroidism type: due to medication Qualified Code(s): E03.2 - Hypothyroidism due to medicaments and other exogenous substances Plan: stable; same rx (2) Persistent atrial fibrillation: Code(s): I48.19 - Other persistent atrial fibrillation Category: Medical Plan: cont rx; stable
== END 2024-04-20 09:27 | disposition home or self-care (01) ==
PROVIDERS: PCP Internal Medicine; Visit Provider Internal Medicine
DX: E03.2 Hypothyroidism due to medicaments and other exogenous substances (principal); I48.19 Other persistent atrial fibrillation

== ENCOUNTER → 2024-04-20 08:10 | Outpatient (BNVA) | payer MEDICARE, OTHER, SELFPAY | PROVIDERS: PCP Internal Medicine; Visit Provider Internal Medicine | DX: E03.2 Hypothyroidism due to medicaments and other exogenous substances (principal); I48.19 Other persistent atrial fibrillation | CPT/HCPCS: 96127; 99212 ==

== ENCOUNTER 2024-05-16 17:09 | Inpatient (IN) | payer MEDICARE, OTHER, SELFPAY ==
--- NOTE | ~2024-05-16 | XR_ITS ---
EXAMINATION: XR chest 2V CLINICAL INFORMATION: weakness COMPARISON: None TECHNIQUE: 2 views of the chest FINDINGS: Clear lungs. No pneumothorax. No pleural effusion. Normal cardiomediastinal silhouette. XR/XR chest 2V IMPRESSION: Clear lungs. Electronically signed by: Annalise Joaquin MD 05/16/2024 07:34 PM EST
--- NOTE | ~2024-05-16 | MR_ITS ---
EXAMINATION: MR BRAIN WITHOUT CONTRAST CLINICAL INFORMATION: Encephalopathy COMPARISON: Correlated to CT brain dated July 27, 2023 TECHNIQUE: MRI of the brain was obtained using routine sequences without contrast. FINDINGS: Limited by patient's motion artifact. No restricted diffusion. No acute intracranial hemorrhage, mass effect, midline shift, hydrocephalus or herniation. Posterior cranial fossa contents demonstrated no acute intracranial hemorrhage. Bilateral multifocal confluent deep periventricular white matter hyperintense T2 FLAIR signal involving the parietal lobes and punctate hyperintense T2 FLAIR signal in the centrum semiovale and moses radiata. Flow-void signal within the main cerebral vessels is normal. Sellar/suprasellar region is normal. Craniocervical junction is intact and normal. MR/MR head/brain wo con IMPRESSION: No acute brain abnormality. White matter disease likely related to small vessel occlusive disease. Electronically signed by: Hayden Martines MD 05/19/2024 01:40 PM EST
--- NOTE | ~2024-05-16 | CT_ITS ---
EXAMINATION: CT ABDOMEN PELVIS WITHOUT IV CONTRAST, CT CHEST WITHOUT IV CONTRAST CLINICAL INFORMATION: leukocytosis, pt poor historian COMPARISON: Chest radiograph 05/16/2024. CT chest 04/03/2016. TECHNIQUE: Unenhanced CT of the chest, abdomen and pelvis. Intravenous Contrast: None This CT examination was performed using dose optimization techniques as appropriate, variously including the following: *Automated exposure control *Adjustment of mA and/or kV according to patient size (this includes techniques or standardized protocols for targeted exams where dose is matched to indication/reason for exam; i.e. extremities or head) *Use of iterative reconstruction technique DLP: 803 mGy-cm FINDINGS: Lungs and pleura: Moderate-marked centrilobular emphysema. 1 cm focal noncalcified pleural calcification adjacent to the right upper pulmonary lobe unchanged compared with 04/03/2016 which is benign in appearance and warrants no additional imaging follow-up on the basis of this examination. Minimal scattered calcified right pleural plaques are unchanged compared with 04/03/2016. Minimal scattered reticular nodular subpleural opacities which may represent minimal chronic parenchymal scarring of the lungs. No pulmonary consolidation. Mediastinum: Marked diffuse calcific atherosclerosis of the thoracic aorta. Partial visualization of marked diffuse coronary artery calcific atherosclerosis. Normal heart size. No pericardial thickening or pericardial fluid collections. No mediastinal lymphadenopathy. CHEST WALL: No axillary lymphadenopathy. No thoracic wall inflammatory changes. CT abdomen and pelvis: Normal appearance of the liver. The gallbladder is partially contracted and demonstrates vague dependent layering hyperdensity which may represent partial visualization of radiodense cholelithiasis or dense biliary sludge. Normal appearance of the pancreas and spleen. No focal hepatic lesions noted. Normal size of the liver and normal hepatic capsular contour. Normal appearance of the adrenal glands. The kidneys demonstrate bilateral rounded low density foci most consistent with simple cyst 14 no additional imaging follow-up. A 1 mm punctate calculus is present in the inferior right renal pelvis. No perinephric inflammatory changes. Urinary bladder: Physiologically distended. systems: Normal appearance of the prostate and seminal vesicles. Gastrointestinal system: The appendix is not definitively visualized. No free intraperitoneal fluid or gas collections are noted. No intestinal dilatation or intestinal mural thickening noted. Normal appearance of the stomach and duodenum. Tortuosity of the abdominal aorta is present and marked diffuse aortoiliac calcific atherosclerosis is noted. No abdominal or pelvic lymphadenopathy visualized. Incidental note is made of several prominent though still normal sized lymph nodes within the left inguinal region adjacent to mild reticulation of the subcutaneous fat. Bilateral vasectomy clips noted. No abdominal wall hernias noted. Osseous structures: Multilevel intervertebral disc space narrowing and vacuum phenomenon along with endplate osteophytosis and facet hypertrophic changes noted in the thoracic and lumbar spine. No vertebral body compression deformities visualized. Multilevel anterior endplate bridging osteophytosis within the thoracic spine. Intact sternum. Partial visualization of subchondral sclerosis and subchondral cyst formation of the left and right scapular glenoids. CT/CT abdomen pelvis wo IV con IMPRESSION: *Mild focal subcutaneous inflammatory changes and adjacent reactive lymphadenopathy within the left inguinal region. These findings may represent focal subcutaneous inflammatory changes. Findings are contiguous with the adjacent common femoral vessels. In the correct clinical setting, findings could represent inflammatory changes status post femoral vessel catheterization. No associated soft tissue fluid collections. Elsewhere within the chest, abdomen and pelvis, no acute abnormalities identified. *Marked diffuse calcific atherosclerosis including marked diffuse coronary artery calcific atherosclerosis. *Moderate-marked centrilobular emphysema. 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 Partial visualization of bilateral shoulder chronic arthropathic changes. *Chronic right pleural calcified plaques. Findings may represent sequela of prior infection or trauma. Electronically signed by: Karl Riebra MD 05/17/2024 01:20 AM [facility]
--- NOTE | ~2024-05-16 | FL_ITS ---
FLUOROSCOPIC GUIDED LUMBAR PUNCTURE INDICATION: Encephalopathy. TECHNIQUE: Risks and benefits and possible complications were discussed with the patient's and informed consent was obtained. Patient was placed prone on the fluoroscopy table. The back was prepped and draped in routine sterile fashion. Betadine was used as a skin antiseptic. Utilizing fluoroscopic guidance, the L4-5 interlaminar space was accessed with a 22 gauge David spinal needle and clear CSF fluid obtained. Opening pressure was not obtained. 8 cc of fluid was sent for analysis. The needle was removed without immediate complications. Total fluoroscopy time: 0.4 min FL/FL guided lumbar puncture LP IMPRESSION: Successful fluoroscopic guided lumbar puncture at L4-L5. This procedure was performed by Balwinder Quigley PA-C and supervised by Dr. Pierre. Electronically signed by: Mendoza Pierre MD 05/18/2024 04:20 PM [facility]
[2024-05-16 17:52] VITALS: BP 124/65; PULSE 97; RESP 18; TEMP 37.2; O2SAT 95
--- NOTE | 2024-05-16 17:57 | ED_ITS ---
HPI - General Adult General Chief complaint: Altered Mental Status Stated complaint: not acting right , has alzheimers Time Seen by Provider: 05/16/24 20:08 Source: patient Mode of arrival: ambulatory Limitations: no limitations History of Present Illness ED Provider: Dr. Veronica Romero HPI narrative: Patient comes to the emergency room accompanied by his . According to the patient's , the patient has been sleeping 9 hours during the day which is not usual for him. PCP was called and recommended to bring him to the emergency room. According to the patient, he has no complaints, feels well. The patient's reports that the patient seems to be more confused than usual. Patient does have history of Alzheimer's. Related Data Previous Rx's ?Medication ?Instructions ?Recorded rivaroxaban 20 mg tablet (Xarelto) 20 mg PO DAILY #90 tabs 08/25/23 digoxin 125 mcg (0.125 mg) tablet 125 mcg PO DAILY #90 tabs 11/16/23 furosemide 40 mg tablet 40 mg PO BID #180 tabs 11/16/23 levothyroxine 50 mcg tablet 50 mcg PO DAILY #90 tabs 11/16/23 albuterol sulfate 90 mcg/actuation 2 puff inhalation Q4-6H PRN for 12/23/23 aerosol inhaler wheezing #8.5 ea diltiazem HCl 180 mg 180 mg PO BID 90 days #180 tabs 05/14/24 tablet,extended release 24 hr Allergies Allergy/AdvReac Type Severity Reaction Status Date / Time No Known Allergies Allergy Verified 05/16/24 17:58 [No Known Allergies*] Review of Systems 2 Review of Systems: Constitutional : No Weight loss, No Fever, No Chills, No Night Sweats, No Fatigue, No Malaise ENT/Mouth : No Hearing loss, No Ear Pain, No Nasal Congestion, No Sinus Pain, No Hoarseness, No sore throat, No Rhinorrhea, No Swallowing Difficulty Eyes: No Eye Pain, No Swelling, No Redness, No Foreign Body, No Discharge, No Vision Changes Cardiovascular : No Chest Pain, No SOB, No Dyspnea on Exertion, No Orthopnea, No Edema, No Palpitations Respiratory : No Cough, No Sputum, No Wheezing, No Smoke Exposure, No Dyspnea Gastrointestinal : No Nausea, No Vomiting, No Diarrhea, No Constipation, No abdominal Pain, No Hematochezia, No Melena Genitourinary : no irregular bleeding, No Dysuria, No Urinary Frequency, No Hematuria, No Urinary Incontinence, No Urgency, No Flank Pain, No Urinary Flow Changes, No Hesitancy Musculoskeletal : No joint pain, No Myalgias, No Joint Swelling Skin : No Skin Lesions, No rash Neuro : No Weakness, No Numbness, No Paresthesias, No Loss of Consciousness, No Dizziness, No Headache Psych : No Anxiety/Panic, No Depression, No SI/HI/AH/VH, No Social Issues, Heme/Lymph: No Bruising, No Bleeding,No Lymphadenopathy Endocrine : No Polyuria, No Polydipsia, No Temperature Intolerance REPLACED BY [facility] Past Medical History Medical History Chronic heart failure with preserved ejection fraction (HFpEF) Non-rheumatic aortic stenosis Persistent atrial fibrillation Afib Hypothyroidism Surgical History H/O prostatectomy Family History Family History Father Alzheimers disease Mental health disorder Mother Dementia Mental health disorder Social History Social History Housing: House Alcohol intake: former Patient Tobacco Use Status: Current everyday Tobacco user Tobacco use type: Cigarette Cigarette Packs Per Day: 0.5 Cigarettes Per Day: 10 Years Smoked: 45 +/- Smoked in Last 30 Days: Yes e-Cigarette/Vaping Use: Never Used Second Hand Smoke Exposure: Yes Use of substances other than those prescribed or required for medical reasons: No Advance Directives: No Advance Directives Information Provided: No service: No Current occupational status: retired Cognitive needs: No Hearing needs: No Vision needs: Yes Physical Exam ED Vital Signs: Vital Signs - 24 hr 05/16/24 17:52 05/16/24 20:24 Temperature 98.9 F 98.4 F Pulse Rate 97 96 Respiratory Rate 18 18 Blood Pressure 124/65 115/44 L Pulse Oximetry 95 99 Oxygen Delivery Method Room Air Room Air BMI result Body Mass Index 20.0 Const Other: Appearance: Alert. Oriented X2. No acute distress. Well-appearing Eyes: Pupils equal, round and reactive to light. ENT: Pharynx normal. Neck: Normal inspection. Neck supple. No lymph nodes noted. No crepitus CVS: Normal heart rate and rhythm. Pulses normal. Normal S1 and S2 Respiratory: No respiratory distress. Breath sounds normal. No Wheezing. No rales Abdomen: Soft and nontender. No rigidity. No distention. Skin: Skin warm and dry. Normal skin color. Normal skin turgor. Extremities: No lower extremity edema. No Lacerations. No Rash Neuro: Oriented X 2 No motor deficit. No sensory deficit. Moving all extremities. No slurred speech. CN 2 through 12 grossly intact Psych: calm, cooperative, normal affect Course Course Course Narrative: RME performed by Diamond Torres PA-C. Patient is an 84 year old assigned male at presenting to the emergency department with increased confusion and weakness. Detailed physical exam and review of systems are deferred to the contract clerk. EKG, labs, imaging, and swabs ordered. Patient placed back in the waiting room pending room availability and results. Medications Administered Discontinued Medications Generic Name Dose Route Start Last Admin Trade Name Freq PRN Reason Stop Dose Admin Ceftriaxone Sodium 1 gm 05/16/24 23:31 05/16/24 23:41 Ceftriaxone Sodium 1 Gm Vial IVPUSH 05/16/24 23:32 1 gm ONCE ONE Administration Medical Decision Making Medical Decision Making [facility] Narrative: My interpretation of labs. Patient's white blood cell count is 22.5. At this time, there is no clear source of infection. Patient has not had any URI symptoms, no UTI symptoms, denies any abdominal pain. No skin lesions. Patient is chronically anemic, hemoglobin today 11.6, hematocrit 32.2, platelets 177. CT scan shows lymphadenopathy within the left inguinal region, no obvious signs of enteritis, gastroenteritis. Urinalysis has blood in the urine due to straight cath. Not UTI. Patient states that he feels well and has no complaints. I discussed the patient with Dr. Anne, a hyponatremia of 130 is not enough to cause confusion. However, with an elevated white blood cell count, reported new onset until mental status/we need to rule out meningitis. Unfortunately, at this time patient is on Xarelto for atrial fibrillation. We will hold Xarelto and then IR can be consulted for an LP. -sepsis not suspected. Patient empirically being treated with acyclovir, ceftriaxone, ampicillin, dexamethasone and vancomycin So far patient has not complained of any headache, neck pain or rigidity, patient has not had any fevers. Blood pressure stable. Differential Diagnosis Differential Diagnoses: The differential diagnosis associated with the presentation includes (UTI, pyelonephritis, pneumonia, dementia, meningitis) Admission/Observation Consideration of admission/observation: Escalation of care including admission/observation considered Consult Healthcare Provider Management of the patient was discussed with: Hospitalist Lab Data MDM Lab Attestation statement: I reviewed the patient's lab results. 05/16/24 18:14 05/16/24 18:14 Labs: Lab Results 05/16/24 05/16/24 05/17/24 Range/Units 18:14 23:01 00:06 WBC 22.5 H (4.8-10.8) X10*3/uL RBC 3.53 L (4.60-5.80) X10*6/uL Hgb 11.6 L (14.0-18.0) g/dl Hct 32.2 L (42.0-52.0) % MCV 91.2 (80.0-98.0) fL MCH 32.9 (27.0-33.0) pg MCHC 36.0 (31.0-36.0) g/dl RDW 13.1 (11.0-16.0) % Plt Count 177 D (160-400) X10*3/uL MPV 9.5 (9.4-12.4) fL Immature Gran % (Auto) 0.6 H (0.0-0.4) % Neut % (Auto) 89.8 H (45-73) % Lymph % (Auto) 5.6 L (20-40) % [place] % (Auto) 3.8 (2-11) % Eos % (Auto) 0.0 (0-4) % Baso % (Auto) 0.2 (0-2) % Lymph # (Auto) 1.3 (1.2-4.9) X10*3/uL [place] # (Auto) 0.9 (0.1-1.2) X10*3/uL Eos # (Auto) 0.0 (0.0-0.4) X10*3/uL Baso # (Auto) 0.1 (0.0-0.2) X10*3/uL Abs Immat Gran (auto) 0.14 H (0.00-0.03) X10*3/uL Absolute Neuts (auto) 20.2 H (2.0-8.3) x10*3/uL Absolute Nucleated RBC 0.000 (0.0-0.012) X10*3/uL Nucleated RBC % (auto) 0.0 (0.0-0.2) /100WBC Smear Tech's Comments VERIFIED Sodium 130 L (135-145) mmol/L Potassium 3.8 (3.3-5.1) mmol/L Chloride 96 (96-108) mmol/L Carbon Dioxide 23 (22-29) mmol/L Anion Gap 15 (12-20) BUN 20 H (9-16) mg/dL Creatinine 1.01 (0.5-1.4) mg/dL Estim Creat Clear Calc 54.9 Estimated GFR > 60 Random Glucose 91 (60-115) mg/dL Lactic Acid 1.2 (0.5-2.0) mmol/L Calcium 9.0 (8.4-10.2) mg/dL Magnesium 1.8 (1.6-2.6) mg/dL Total Bilirubin 0.9 (0.0-1.0) mg/dL AST 60 H (5-37) U/L ALT 30 (0-40) U/L Alkaline Phosphatase 77 (39-117) U/L Troponin I High Sens 57.3 H 53.3 H (<3.5-35.0) ng/L Total Protein 7.3 (6.5-8.0) g/dL Albumin 3.6 (3.5-5.0) g/dL Urine Color Yellow Urine Appearance Clear Urine pH 6.5 (5.0-9.0) Ur Specific [place] 1.015 (1.005-1.025) Urine Protein 30 (1+) H (Neg-Trace) mg/dL Urine Glucose (UA) Negative (Negative) mg/dL Urine Ketones Negative (Negative) mg/dL Urine Blood Moderate (2+) H (Negative) Urine Nitrite Negative (Negative) Ur Leukocyte Esterase Negative (Negative) Urine RBC >20 H (0-2) /HPF Urine WBC 0-5 (0-5) /HPF Ur Squamous Epith Cells 0-2 (0-2) /HPF Urine Bacteria None Seen (None Seen) Hyaline Casts 0-2 (0-2) /LPF Influenza Type A (PCR) NEGATIVE (Negative) Influenza Type B (PCR) NEGATIVE (Negative) RSV RNA Qual (PCR) NEGATIVE (Negative) SARS-CoV-2 RNA (RT-PCR) NEGATIVE (Negative) Independent Interpretation I performed an independent interpretation of an: CT Scan Radiology Impression Discussion of test interpretation with radiology: I have reviewed the radiologist's reading. Radiologist Impression: *Mild focal subcutaneous inflammatory changes and adjacent reactive lymphadenopathy within the left inguinal region. These findings may represent focal subcutaneous inflammatory changes. Findings are contiguous with the adjacent common femoral vessels. In the correct clinical setting, findings could represent inflammatory changes status post femoral vessel catheterization. No associated soft tissue fluid collections. Elsewhere within the chest, abdomen and pelvis, no acute abnormalities identified. *Marked diffuse calcific atherosclerosis including marked diffuse coronary artery calcific atherosclerosis. *Moderate-marked centrilobular emphysema. 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 Partial visualization of bilateral shoulder chronic arthropathic changes. *Chronic right pleural calcified plaques. Findings may represent sequela of prior infection or trauma. Independent Historian Clinical information obtained from an independent historian. History obtained from or confirmed by: Spouse Critical Care Time Critical Care Time Critical Care Time: Yes Total Critical Care Time: 45 Attestation: I have personally provided critical care time. Time includes review of lab data, radiology results, discussion with consultants, and monitoring for potential decompensation. Intervention performed as documented. Discharge Plan Discharge Clinical Impression: Acute hyponatremia, Dementia, Mental status alteration Patient Disposition: Admitted As Inpatient Prescriptions: No Action Xarelto 20 mg tablet 20 mg PO DAILY Qty: 90 8RF Rx Instructions: must administer with evening meal levothyroxine 50 mcg tablet 50 mcg PO DAILY Qty: 90 8RF furosemide 40 mg tablet 40 mg PO BID Qty: 180 3RF digoxin 125 mcg (0.125 mg) tablet 125 mcg PO DAILY Qty: 90 8RF albuterol sulfate 90 mcg/actuation HFA aerosol inhaler 2 puff inhalation Q4-6H PRN (Reason: for wheezing) Qty: 8.5 8RF diltiazem HCl 180 mg tablet extended release 24 hr 180 mg PO BID 90 Days Qty: 180 3RF Print Language: [place] Irish
--- NOTE | 2024-05-16 17:58 | ECG_ITS ---
Test Reason : ams Blood Pressure : / mmHG Vent. Rate : 100 BPM Atrial Rate : 000 BPM P-R Int : 000 ms QRS Dur : 132 ms QT Int : 350 ms P-R-T Axes : 000 -81 072 degrees QTc Int : 451 ms Atrial fibrillation with premature ventricular or aberrantly conducted complexes Left axis deviation Right bundle branch block Inferior infarct , age undetermined Abnormal ECG When compared with ECG of 09-APR-2016 11:02, Atrial fibrillation has replaced Atrial flutter Right bundle branch block is now Present Inferior infarct is now Present Referred By: Diamond Torres Electronically Signed By:Rashaun Merchant
[2024-05-16 18:22] LABS: Basophils Absolute Auto 0.1 X10*3/uL (0.0-0.2); Basophils Percent Auto 0.2 % (0-2); Hematocrit 32.2 % (42.0-52.0); Hemoglobin 11.6 g/dl (14.0-18.0); Imm Gran Abs Auto 0.14 X10*3/uL (0.00-0.03); Imm Gran Pct Auto 0.6 % (0.0-0.4); Lymphocytes Absolute Auto 1.3 X10*3/uL (1.2-4.9); Lymphocytes Percent Auto 5.6 % (20-40); MANUAL DIFF FLAG SCAN; Mean Corpuscular Hemoglobin 32.9 pg (27.0-33.0); Mean Corpuscular Volume 91.2 fL (80.0-98.0); Mean Platelet Volume 9.5 fL (9.4-12.4); Monocytes Absolute Auto 0.9 X10*3/uL (0.1-1.2); Monocytes Percent Auto 3.8 % (2-11); Neutrophils Absolute Auto 20.2 x10*3/uL (2.0-8.3); Neutrophils Percent Auto 89.8 % (45-73); Platelet Count 177 X10*3/uL (160-400); Red Blood Count 3.53 X10*6/uL (4.60-5.80); Red Cell Distribution Width 13.1 % (11.0-16.0); SCAN SMEAR FLAG 1; White Blood Count 22.5 X10*3/uL (4.8-10.8)
[2024-05-16 18:39] LABS: Alanine Aminotransferase 30 U/L (0-40); Albumin Level 3.6 g/dL (3.5-5.0); Alkaline Phosphatase 77 U/L (39-117); Anion Gap 15 (12-20); Aspartate Amino Transferase 60 U/L (5-37); Bilirubin Total 0.9 mg/dL (0.0-1.0); Blood Urea Nitrogen 20 mg/dL (9-16); Carbon Dioxide 23 mmol/L (22-29); Chloride 96 mmol/L (96-108); Creatinine Clr Calc Pharmacy 54.9; Estimated Glomerular Filt Rate > 60; Glucose Random 91 mg/dL (60-115); Magnesium 1.8 mg/dL (1.6-2.6); Potassium 3.8 mmol/L (3.3-5.1); Sodium 130 mmol/L (135-145); Total Protein 7.3 g/dL (6.5-8.0)
[2024-05-16 18:46] LABS: SLIDE REVIEW VERIFIED
[2024-05-16 18:47] LABS: Troponin-I High Sensitivity 57.3 ng/L (<3.5-35.0)
[2024-05-16 18:59] LABS: Influenza A PCR NEGATIVE (Negative); Influenza B PCR NEGATIVE (Negative); Resp Syncy Virus RNA Qual PCR NEGATIVE (Negative); SARS COV2 PCR INHOUSE NEGATIVE (Negative)
--- NOTE | 2024-05-16 20:22 | PC.NURSE ---
pt from lobby, assume care of pt at this time
[2024-05-16 20:24] VITALS: BP 115/44; PULSE 96; RESP 18; TEMP 36.9; O2SAT 99
[2024-05-16 23:10] LABS: Appearance Urine Clear; Color Urine Yellow; Glucose Urine UA Negative (Negative); Leukocyte Esterase Urine Negative (Negative); Nitrite Urine Negative (Negative); PH 6.5 (5.0-9.0); Specific Gravity - Urine 1.015 (1.005-1.025); UMIC TRIGGER UACC YES; Urine Blood Moderate (2+) (Negative); Urine Ketones Negative (Negative); Urine Protein 30 (1+) mg/dL (Neg-Trace)
[2024-05-16 23:16] LABS: Bacteria Urine None Seen (None Seen); Hyaline Casts Urine 0-2 /LPF (0-2); RBC Urine >20 /HPF (0-2); Squamous Epithelial Cell Urine 0-2 /HPF (0-2); WBC Urine 0-5 /HPF (0-5)
[2024-05-16] MEDS: cefTRIAXone sodium 1 GM VIAL IVPUSH (23:41)
--- NOTE | 2024-05-16 23:42 | PC.NURSE ---
Spouse Miranda works at [employer] Lineworker line [phone] if not able to reach her by cell
[2024-05-17] VITALS (12 sets, daily range): BP systolic 95–136; BP diastolic 53–68; PULSE 81–104; RESP 16–20; TEMP 36.4–37.2; O2SAT 93–97; BMI 19.8
[2024-05-17 00:27] LABS: Lactic Acid 1.2 mmol/L (0.5-2.0)
[2024-05-17 00:32] LABS: Troponin-I High Sensitivity 53.3 ng/L (<3.5-35.0)
--- NOTE | 2024-05-17 02:44 | P.HPHOSP_ITS ---
History of Present Illness Date of Service: 05/17/24 Chief Complaint: Altered mentation This is a 84-year-old male with pertinent history of persistent atrial fibrillation on Xarelto, congestive heart failure with preserved ejection fraction, Alzheimer's dementia, hypothyroidism who was brought to the emergency department for evaluation of confusion. Patient is oriented to self with the time of my evaluation but does not know why he is in the hospital. History obtained from ER provider and chart review. Tried calling the patient's but no answer. As per the who was present earlier, patient was drowsy and was sleeping 9 hours during the day which is unusual for him. He was found to be more confused on the day of presentation and hence he was brought to the ER. Unable to obtain review of systems. In the emergency department, WBC found to be 22 Review of Systems 2 Review of Systems: Yes Unobtainable due to mental status PMFSH Medical History Chronic heart failure with preserved ejection fraction (HFpEF) Non-rheumatic aortic stenosis Persistent atrial fibrillation Afib Hypothyroidism Family History Father Alzheimers disease Mental health disorder Mother Dementia Mental health disorder Surgical History H/O prostatectomy Social History Housing: House Alcohol intake: former Patient Tobacco Use Status: Current everyday Tobacco user Tobacco use type: Cigarette Cigarette Packs Per Day: 0.5 Cigarettes Per Day: 10 Years Smoked: 45 +/- Smoked in Last 30 Days: Yes e-Cigarette/Vaping Use: Never Used Second Hand Smoke Exposure: Yes Use of substances other than those prescribed or required for medical reasons: No Advance Directives: No Advance Directives Information Provided: No service: No Current occupational status: retired Cognitive needs: No Hearing needs: No Vision needs: Yes Meds Allergies Allergy/AdvReac Type Severity Reaction Status Date / Time No Known Allergies Allergy Verified 05/16/24 17:58 [No Known Allergies*] Active Medications: Current Medications Ceftriaxone Sodium (Ceftriaxone Sodium 2 Gm Vial) 2 gm IVPUSH Q12H [facility] Dexamethasone Sodium Phosphate (Dexamethasone Sod Phosphate 10 Mg/Ml Vial) 10 mg IVPUSH Q6H [facility] Vancomycin HCl 1,000 mg/ (Sodium Chloride) 270 mls @ 270 mls/hr IV ONCE ONE Stop: 05/17/24 03:44 Ampicillin Sodium 2 gm/ Sodium (Chloride) 100 mls @ 200 mls/hr IV Q4H [facility] Acyclovir Sodium 689 mg/ (Sodium Chloride) 113.78 mls @ 113.78 mls/hr IV Q8H [facility] Sodium Chloride (Ns) 1,000 mls @ 999 mls/hr IV .Q1H1M [facility] Stop: 05/17/24 03:45 Pharmacy Consult (Consult Rx Vancomycin Dosing) 1 each MISCELLANE DAILY PRN PRN Reason: Consult order Physical Exam 2 Vital Signs and Narrative: Vital Signs: Last Vital Signs Temp 98.4 F 05/16/24 20:24 Pulse 96 05/16/24 20:24 Resp 18 05/16/24 20:24 BP 115/44 L 05/16/24 20:24 Pulse Ox 99 05/16/24 20:24 O2 Del Method Room Air 05/16/24 20:24 BMI result Body Mass Index 20.0 Elderly male lying in bed in no distress Neck supple, no JVD Regular rate and rhythm, S1-S2 heard Regular breath sounds bilaterally, no wheezing or crackles appreciated Abdomen soft nontender, no guarding, no rigidity Patient awakens to voice and is oriented to self, disoriented to place or time Psych: Normal mood No pedal edema Results Labs 05/16/24 18:14 05/16/24 18:14 Labs: Laboratory Results - last 24 hr 05/16/24 05/16/24 05/17/24 18:14 23:01 00:06 MCV 91.2 MCH 32.9 MCHC 36.0 RDW 13.1 Plt Count 177 D MPV 9.5 Immature Gran % (Auto) 0.6 H Neut % (Auto) 89.8 H Lymph % (Auto) 5.6 L [place] % (Auto) 3.8 Eos % (Auto) 0.0 Baso % (Auto) 0.2 Lymph # (Auto) 1.3 [place] # (Auto) 0.9 Eos # (Auto) 0.0 Baso # (Auto) 0.1 Abs Immat Gran (auto) 0.14 H Absolute Neuts (auto) 20.2 H Absolute Nucleated RBC 0.000 Nucleated RBC % (auto) 0.0 Smear Tech's Comments VERIFIED Anion Gap 15 Estim Creat Clear Calc 54.9 Estimated GFR > 60 Random Glucose 91 Lactic Acid 1.2 Calcium 9.0 Magnesium 1.8 Total Bilirubin 0.9 AST 60 H ALT 30 Alkaline Phosphatase 77 Troponin I High Sens 57.3 H 53.3 H Total Protein 7.3 Albumin 3.6 Urine Color Yellow Urine Appearance Clear Urine pH 6.5 Ur Specific [place] 1.015 Urine Protein 30 (1+) H Urine Glucose (UA) Negative Urine Ketones Negative Urine Blood Moderate (2+) H Urine Nitrite Negative Ur Leukocyte Esterase Negative Urine RBC >20 H Urine WBC 0-5 Ur Squamous Epith Cells 0-2 Urine Bacteria None Seen Hyaline Casts 0-2 Influenza Type A (PCR) NEGATIVE Influenza Type B (PCR) NEGATIVE RSV RNA Qual (PCR) NEGATIVE SARS-CoV-2 RNA (RT-PCR) NEGATIVE Imaging Radiologist's Impressions: Impressions Chest X-Ray 05/16/24 18:30 IMPRESSION: Clear lungs. Electronically signed by: Annalise Joaquin MD 05/16/2024 07:34 PM EST RP Chest CT 05/16/24 23:31 IMPRESSION: *Mild focal subcutaneous inflammatory changes and adjacent reactive lymphadenopathy within the left inguinal region. These findings may represent focal subcutaneous inflammatory changes. Findings are contiguous with the adjacent common femoral vessels. In the correct clinical setting, findings could represent inflammatory changes status post femoral vessel catheterization. No associated soft tissue fluid collections. Elsewhere within the chest, abdomen and pelvis, no acute abnormalities identified. *Marked diffuse calcific atherosclerosis including marked diffuse coronary artery calcific atherosclerosis. *Moderate-marked centrilobular emphysema. 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 Partial visualization of bilateral shoulder chronic arthropathic changes. *Chronic right pleural calcified plaques. Findings may represent sequela of prior infection or trauma. Electronically signed by: Karl Ribera MD 05/17/2024 01:20 AM EST RP Abdomen/Pelvis CT 05/16/24 23:45 IMPRESSION: *Mild focal subcutaneous inflammatory changes and adjacent reactive lymphadenopathy within the left inguinal region. These findings may represent focal subcutaneous inflammatory changes. Findings are contiguous with the adjacent common femoral vessels. In the correct clinical setting, findings could represent inflammatory changes status post femoral vessel catheterization. No associated soft tissue fluid collections. Elsewhere within the chest, abdomen and pelvis, no acute abnormalities identified. *Marked diffuse calcific atherosclerosis including marked diffuse coronary artery calcific atherosclerosis. *Moderate-marked centrilobular emphysema. 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 Partial visualization of bilateral shoulder chronic arthropathic changes. *Chronic right pleural calcified plaques. Findings may represent sequela of prior infection or trauma. Electronically signed by: Karl Ribera MD 05/17/2024 01:20 AM [facility] Assessment and Plan (1) Acute encephalopathy: Status: Acute Plan This is a 84-year-old male with pertinent history of persistent atrial fibrillation on Xarelto, congestive heart failure with preserved ejection fraction, Alzheimer's dementia, hypothyroidism who was brought to the emergency department for evaluation of confusion. #. Acute encephalopathy: Also found to have leukocytosis and meets SIRS criteria. Will admit patient with empiric IV antibiotics and antivirals. Hold Xarelto and INR in a.m.. Consulted IR for LP. CSF studies pending. Also obtaining TSH, B12. Resuscitated with IV crystalloids and lactic acid obtained. Blood culture pending #. Congestive heart failure with preserved EF: No decompensation during admission. On furosemide #. Alzheimer's dementia: Maintain sleep-wake cycle #. Persistent atrial fibrillation: Hold Xarelto for LP. On digoxin and diltiazem. Rate controlled in the ER #. Hypothyroidism: On Synthroid Med rec pending DVT prophylaxis: Mechanical Full code. Tried calling patient's but no answer. Readdress code status in a.m. Admit as inpatient and will require two night minimum hospital stay for monitoring of mentation, IV antibiotics (as above), which is not possible in a lesser acute setting. Quality Stroke Does the patient have a stroke diagnosis?: No VTE Prior VTE?: No VTE Risk Level:: Medical - moderate - high VTE Device Contraindication: N/A - Device Ordered VTE Drug Contraindication: Treatment Not Indicated
[2024-05-17] MEDS: cefTRIAXone sodium 1 GM VIAL IVPUSH (03:46)
[2024-05-17] MEDS: dexAMETHasone sod phosphate 10 MG/ML VIAL IVPUSH ×4 (03:46→20:33)
[2024-05-17] MEDS: vancomycin HCL 1,000 MG in 0.9 % Sodium Chloride 250 ML 270 MG IV (03:46)
[2024-05-17] MEDS: 0.9 % Sodium Chloride 500 ML IV (03:47)
[2024-05-17 04:55] LABS: MANUAL DIFF FLAG NO
[2024-05-17 04:57] LABS: Basophils Absolute Auto 0.1 X10*3/uL (0.0-0.2); Basophils Percent Auto 0.3 % (0-2); Eosinophils Percent Auto 0.1 % (0-4); Hematocrit 29.8 % (42.0-52.0); Hemoglobin 10.5 g/dl (14.0-18.0); Imm Gran Abs Auto 0.12 X10*3/uL (0.00-0.03); Imm Gran Pct Auto 0.7 % (0.0-0.4); Lymphocytes Absolute Auto 1.1 X10*3/uL (1.2-4.9); Lymphocytes Percent Auto 6.6 % (20-40); Mean Corpuscular HGB Conc 35.2 g/dl (31.0-36.0); Mean Corpuscular Hemoglobin 32.4 pg (27.0-33.0); Mean Platelet Volume 10.3 fL (9.4-12.4); Monocytes Absolute Auto 1.1 X10*3/uL (0.1-1.2); Monocytes Percent Auto 6.4 % (2-11); Neutrophils Absolute Auto 14.6 x10*3/uL (2.0-8.3); Neutrophils Percent Auto 85.9 % (45-73); Platelet Count 167 X10*3/uL (160-400); Red Blood Count 3.24 X10*6/uL (4.60-5.80); Red Cell Distribution Width 12.8 % (11.0-16.0); White Blood Count 16.9 X10*3/uL (4.8-10.8)
[2024-05-17 05:08] LABS: INTERNATIONAL NORM RATIO 1.2 (0.9-1.1); Prothrombin Time 13.6 SEC (10.9-12.4)
[2024-05-17] MEDS: SODIUM CHLORIDE 0.9% IV ×2 (05:09→14:11)
[2024-05-17] MEDS: ACYCLOVIR SODIUM IV ×2 (05:09→14:11)
[2024-05-17 05:18] LABS: Anion Gap 13 (12-20); Blood Urea Nitrogen 17 mg/dL (9-16); Calcium 8.5 mg/dL (8.4-10.2); Carbon Dioxide 22 mmol/L (22-29); Chloride 100 mmol/L (96-108); Creatinine Clr Calc Pharmacy 67.6; Estimated Glomerular Filt Rate > 60; Glucose Random 96 mg/dL (60-115); Potassium 3.3 mmol/L (3.3-5.1); Sodium 132 mmol/L (135-145)
[2024-05-17 05:36] LABS: Thyroid Stimulating Hormone 1.91 uIU/mL (0.32-4.0)
[2024-05-17 05:49] LABS: Folate 7.8 ng/mL (> or = 4.0); Vitamin B12 240 pg/mL (200-900)
[2024-05-17] MEDS: Ampicillin Sodium 2 GM in 0.9 % Sodium Chloride 100 ML IV ×5 (06:02→23:15)
--- NOTE | 2024-05-17 07:11 | PC.NURSE ---
report given to Anna MENDEZ
--- NOTE | 2024-05-17 07:54 | PHA.PROG ---
Admission Date/Time: May 17, 2024 02:42 Indication: Weight in k.9 kg Adjusted body weight in Kg: Johnson body weight in Kg: Obesity Dosing Indication % IBW: Serum Creatinine - Last 168 Hours 05/16/24 05/17/24 18:14 04:33 Creatinine 1.01 0.82 Estimated CrCl and GFR - Last 168 Hours 05/16/24 05/17/24 18:14 04:33 Estim Creat Clear Calc 54.9 67.6 Estimated GFR > 60 > 60 Vancomycin Loading Dose: 1000mg x 1 Current Vancomycin Dosing Regimen: 750mg q12h Vancomycin Monitoring using AUC goal of 400 - 600 range with trough as surrogate marker: 493 mg/L Date and Time for next Vancomycin Level to be drawn: 05/18/2024 @ 1900 Pharmacist Comments on Vancomycin Plan: Received only a 1g load over night, could have done 1750mg. Regimen of 750mg q12h will start sooner to make up for load and provide convenient lab times for monitoring. Projected trough of 16.3 mg/L. Vancomycin dosing will take advantage of [employer] as a clinical decision support tool that uses Bayesian modeling to calculate individual patient's pharmacokinetic parameters and forecast the patient's drug concentration time course with the target goal AUC 24 range of 400 - 600 mg/L/hr.
--- NOTE | 2024-05-17 08:05 | PC.NURSE ---
Pt has been ambulatory to [facility]. Is aware of NPO status. Has no complaints at this time. This RN gave update on phone. Pt has dry MM. Steady on feet. Afib on monitor in 110's. Pt is axox3. Needs reorientation to Plan of Care
--- NOTE | 2024-05-17 08:20 | PM.EVENT ---
Event Note Date of Service: 05/17/24 Event Note: This is a 84-year-old male with pertinent history of persistent atrial fibrillation on Xarelto, congestive heart failure with preserved ejection fraction, Alzheimer's dementia, hypothyroidism who was brought to the emergency department for evaluation of confusion. Acute encephalopathy Also found to have leukocytosis and meets SIRS criteria. empiric IV antibiotics and antivirals. Hold Xarelto Consulted IR for LP. normal TSH, B12, lactic acid Resuscitated with IV crystalloids Blood culture pending History of emphysema Chest CT negative for consolidation Expiratory wheezing noted IV steroids and scheduled DuoNebs Congestive heart failure with preserved EF No decompensation during admission. On furosemide Alzheimer's dementia Maintain sleep-wake cycle Persistent atrial fibrillation Hold Xarelto for LP. On digoxin and diltiazem. Rate controlled in the ER Hypothyroidism On Synthroid DVT prophylaxis: Mechanical Attending Dr. Guthrie Full code. Tried calling patient's but no answer. Readdress code status in a.m. Admit as inpatient and will require two night minimum hospital stay for monitoring of mentation, IV antibiotics (as above), which is not possible in a lesser acute setting. Time Spent With Patient Time: Total time managing care of this patient today ____ minutes.
[2024-05-17 09:08] LABS: Glucose, Whole Blood 135 mg/dL (60-115)
[2024-05-17] MEDS: vancomycin HCL 750 MG in 0.9 % Sodium Chloride 250 ML 265 MG IV ×2 (09:40→20:54)
[2024-05-17] MEDS: Albuterol Sulfate (0.083%) 2.5 MG/3 ML VIAL.NEB INHALE ×3 (11:34→21:37)
--- NOTE | 2024-05-17 11:52 | PHA.MEDREC ---
Addendum entered by Franny Sanchez RPh 05/17/24 11:58: Reviewed by [facility] Original Note: Pharmacy Consult ? Medication Reconciliation Pharmacy has completed the medication reconciliation. tried to speak to patient, however he was very confused and didn't know what he takes. Called patient and she was able to confirm all medications. claims match what states patient takes.
[2024-05-17] MEDS: cefTRIAXone sodium 2 GM VIAL IVPUSH ×2 (12:02→22:02)
--- NOTE | 2024-05-17 12:57 | PC.NURSE ---
AT [facility]. NO COMPLAINTS FROM PATIENT.
--- NOTE | 2024-05-17 14:55 | MHC.CM.PN ---
CM met with patient and at bedside. IMM delivered. Questions primarily answered by , as patient oriented to self and place only at this time. Per , patient w/ dx dementia but typically oriented x3 during the day, and becomes confused in the evening. Functionally independent. Denies use of DME or services. 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 PCP Sinan Luis MD reports patient has HCP/POA listing her as agent. Will bring in copy tomorrow. DP: Goal is home w/ services - would like [facility] and [facility]. Referrals sent via [facility]. If patient needs STR, no facility preferences, geographical preference for [facility]. CM will continue to follow.
--- NOTE | 2024-05-17 15:30 | MHC.EDTECH ---
This pct just assumed care of Patient ,vitals taken .
--- NOTE | 2024-05-17 16:03 | P.CDIM_ITS ---
PROVIDER RESPONSE TEXT: To clarify, the appropriate diagnosis supported by the clinical indicators: Metabolic QUERY TEXT: PHYSICIAN'S DOCUMENTATION REQUEST Date of Query: 05/17/2024 11:57 AM EST Patient Name: Balwinder Clay Admit Date: 05/17/2024 Dear Sandra Hidalgo TECHNICAL PUBLICATIONS MANAGER, A review of the medical record indicates additional documentation may be needed. Please review below and update the documentation accordingly. Clinical Indicators: Event note dated 05/17 - Plan: Acute encephalopathy Confused, disoriented to place or time, altered mental status, not acting right Based on the above, please further specify, in the Progress Notes, the known or suspected type of the documented encephalopathy if known: Metabolic Toxic Toxic metabolic Other (explain) Clinically unable to determine (explain) Thank you, Betsy Corona, CCS, CDIS Use of terms such as suspected, likely, concern for, or probable (associated with a specific diagnosi s that is being evaluated, monitored, or treated as if it exists) are acceptable and can be coded in the inpatient se tting, when documented at the time of discharge. Please use your independent medical judgment in providing your response. THIS QUERY IS PART OF THE PERMANENT MEDICAL RECORD
[2024-05-17] MEDS: Furosemide 40 MG TABLET PO (16:12)
--- NOTE | 2024-05-17 17:40 | MHC.EDTECH ---
Patient was standby asst to walk to bathroom ,void and back to bed .
--- NOTE | 2024-05-17 18:43 | PC.NURSE ---
patient arrived from ed at 1830,Charge nurse Bailey is seeing patient
--- NOTE | 2024-05-17 18:43 | PC.NURSE ---
Admission assessment limited due to confusion and spouse is not present at the bedside
[2024-05-17] MEDS: dilTIAZem HCL CD 180 MG CAP.ER.24H PO (20:34)
[2024-05-17] MEDS: 0.9 % Sodium Chloride Flush 3 ML SYRINGE IVFLUSH (22:05)
[2024-05-17] MEDS: Melatonin 3 MG TABLET 6 MG PO (23:15)
[2024-05-18] VITALS (8 sets, daily range): BP systolic 99–110; BP diastolic 52–64; PULSE 77–104; RESP 16–20; TEMP 36.2–36.9; O2SAT 94–98
[2024-05-18] MEDS: Ampicillin Sodium 2 GM in 0.9 % Sodium Chloride 100 ML IV ×6 (03:55→23:45)
[2024-05-18] MEDS: dexAMETHasone sod phosphate 10 MG/ML VIAL IVPUSH ×4 (03:55→20:24)
[2024-05-18] MEDS: Levothyroxine Sodium 50 MCG TABLET PO (05:32)
[2024-05-18] MEDS: SODIUM CHLORIDE 0.9% IV ×3 (06:23→20:26)
[2024-05-18] MEDS: ACYCLOVIR SODIUM IV ×3 (06:23→20:26)
[2024-05-18 07:19] LABS: Creatinine Clr Calc Pharmacy 62.4; Estimated Glomerular Filt Rate > 60
[2024-05-18] MEDS: 0.9 % Sodium Chloride Flush 3 ML SYRINGE IVFLUSH ×3 (07:38→20:30)
[2024-05-18] MEDS: Furosemide 40 MG TABLET PO ×2 (08:04→15:39)
[2024-05-18] MEDS: Digoxin 0.125 MG TABLET PO (08:04)
[2024-05-18] MEDS: dilTIAZem HCL CD 180 MG CAP.ER.24H PO ×2 (08:05→20:24)
[2024-05-18] MEDS: vancomycin HCL 750 MG in 0.9 % Sodium Chloride 250 ML 265 MG IV ×2 (08:22→21:38)
[2024-05-18] MEDS: Albuterol Sulfate (0.083%) 2.5 MG/3 ML VIAL.NEB INHALE ×2 (08:33→15:24)
--- NOTE | 2024-05-18 09:49 | PC.NURSE ---
patient confused,getting out of bed,pulling on IV,trying to fix window in his room,redirected numerous time by HAND ENDBAND CUTTER and RNTeresa charge nurse notifed ,asked for 1:1 sitter for this patient
[2024-05-18] MEDS: cefTRIAXone sodium 2 GM VIAL IVPUSH ×2 (10:47→22:37)
--- NOTE | 2024-05-18 11:01 | PC.NURSE ---
Patient refuses sequentials .Dr. Mello notified,activity encouraged,risks explained ,patient is confused
--- NOTE | 2024-05-18 12:36 | HO.PM.IMPN ---
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 Easily redirected Review of Systems Unable to obtain secondary to confusion Physical Exam Vital Signs: Vital Signs: Last Vital Signs Temp 97.9 F 05/18/24 08:00 Pulse 88 05/18/24 08:33 Resp 16 05/18/24 08:33 BP 104/57 L 05/18/24 08:00 Pulse Ox 97 05/18/24 08:00 O2 Del Method Room Air 05/18/24 08:00 BMI result Body Mass Index 19.8 Const: Other: Awake alert easily redirectable Resp: Other: Clear to auscultation bilaterally no rales rhonchi or wheezes Cardio: Other: No S4; positive S1-S2; no S3 murmurs rubs or gallops GI: Other: Soft nontender nondistended normoactive bowel sounds Neuro: Other: Moves all extremities with equal power Extrem: Other: No edema bilaterally Objective Data Active Medications Acetaminophen (Acetaminophen 325 Mg Tablet) 650 mg PO Q6H PRN PRN Reason: Pain, Mild (Pain Scale 1-3), fever or headache Albuterol Sulfate (Albuterol Sulfate (0.083%) 2.5 Mg/3 Ml Vial.Neb) 2.5 mg INHALE RQ4H WHILE AWAKE [facility] Last Admin: 05/18/24 11:47 Dose: Not Given Documented By: WALLACE Non-Admin Reason: See Note Albuterol Sulfate (Albuterol Sulfate 90 Mcg 8 Gm Inhaler) 2 puff INHALE Q4H PRN PRN Reason: for wheezing Calcium Carbonate (Calcium Carbonate 750 Mg Tab.Chew) 750 mg PO Q4H PRN PRN Reason: Heartburn Ceftriaxone Sodium (Ceftriaxone Sodium 2 Gm Vial) 2 gm IVPUSH Q12H [facility] Last Admin: 05/18/24 10:47 Dose: 2 gm Documented By: GONZALEZ Dexamethasone Sodium Phosphate (Dexamethasone Sod Phosphate 10 Mg/Ml Vial) 10 mg IVPUSH Q6H [facility] Last Admin: 05/18/24 07:40 Dose: 10 mg Documented By: GONZALEZ Digoxin (Digoxin 0.125 Mg Tablet) 0.125 mg PO DAILY [facility]; Protocol Last Admin: 05/18/24 08:04 Dose: 0.125 mg Documented By: GONZALEZ Diltiazem HCl (Diltiazem Hcl Cd 180 Mg Cap.Er.24h) 180 mg PO BID [facility]; Protocol Last Admin: 05/18/24 08:05 Dose: 180 mg Documented By: GONZALEZ Furosemide (Furosemide 40 Mg Tablet) 40 mg PO BIDWM [facility]; Protocol Last Admin: 05/18/24 08:04 Dose: 40 mg Documented By: GONZALEZ Vancomycin HCl 750 mg/ Sodium (Chloride) 265 mls @ 265 mls/hr IV Q12H [facility] Last Infusion: 05/18/24 09:25 Dose: Infused Documented By: GONZALEZ Acyclovir Sodium 685 mg/ (Sodium Chloride) 113.7 mls @ 113.7 mls/hr IV Q8H [facility] Last Infusion: 05/18/24 07:40 Dose: Infused Documented By: GONZALEZ Ampicillin Sodium 2 gm/ Sodium (Chloride) 100 mls @ 200 mls/hr IV Q4H [facility] Last Admin: 05/18/24 11:27 Dose: 200 mls/hr Documented By: GONZALEZ Levothyroxine Sodium (Levothyroxine Sodium 50 Mcg Tablet) 50 mcg PO DAILY@0600 [facility] Last Admin: 05/18/24 05:32 Dose: 50 mcg Documented By: JILLIAN Magnesium Hydroxide (Milk Of Magnesia 30 Ml Oral.Susp) 30 ml PO DAILY PRN PRN Reason: Constipation Melatonin (Melatonin 3 Mg Tablet) 6 mg PO BEDTIME PRN PRN Reason: Insomnia Last Admin: 05/17/24 23:15 Dose: 6 mg Documented By: JILLIAN Ondansetron HCl (Ondansetron Hcl 4 Mg/2 Ml Vial) 4 mg IVPUSH Q8H PRN PRN Reason: Nausea and Vomiting Pharmacy Consult (Consult Rx Vancomycin Dosing) 1 each MISCELLANE DAILY PRN PRN Reason: Consult order Sodium Chloride (0.9 % Sodium Chloride Flush 3 Ml Syringe) 3 ml IVFLUSH QSHIFT [facility] Last Admin: 05/18/24 07:38 Dose: 3 ml Documented By: GONZALEZ Labs 05/17/24 04:33 05/18/24 06:06 Labs: Laboratory Results - last 24 hr 05/18/24 06:06 Hold Purple Top SEE NOTE Estim Creat Clear Calc 62.4 Estimated GFR > 60 Microbiology Microbiology Results: Microbiology 05/17/24 00:13 Blood Culture - Preliminary Blood - Venous No growth after 24 hours. 05/17/24 00:06 Blood Culture - Preliminary Blood - Venous No growth after 24 hours. Assessment and Plan (1) Acute encephalopathy: Status: Acute (2) Chronic heart failure with preserved ejection fraction (HFpEF): Status: Acute (3) Persistent atrial fibrillation: Status: Acute Plan This is a 84-year-old male with pertinent history of persistent atrial fibrillation on Xarelto, congestive heart failure with preserved ejection fraction, Alzheimer's dementia, hypothyroidism who was brought to the emergency department for evaluation of confusion. 1.Acute encephalopathy -continue empiric therapy with vanco/ampicillin/ceftriaxone/acyclovir -LP in progress; await results -will discuss with ; had history of ETOH abuse in the past 2. HFpEF -stable and well compensated -continue current therapies 3.Alzheimer's dementia -await LP results -discussion with pending; may need psych consultation 4.Persistent atrial fibrillation -acceptable rate control -resume Xarelto in a.m. 5.Hypothyroidism -Synthroid as ordered Mechanical Full code Requires ongoing hospitalization for IV antibiotics to empirically treat for acute encephalopathy pending lumbar puncture. We will likely need specialty consultation Quality Stroke Does the patient have a stroke diagnosis?: No VTE Prior VTE?: No VTE Risk Level:: Medical - moderate - high VTE Device Contraindication: N/A - Device Ordered VTE Drug Contraindication: Treatment Not Indicated
--- NOTE | 2024-05-18 12:50 | PM.PROC ---
Brief Operative Note Date of procedure: 05/18/24 Pre-op diagnosis: AMS Post-op diagnosis: same Procedure: FL lumbar puncture L4-5. Opening pressure not obtained. 8 cc clear csf removed and sent for analysis. No immediate complications. Anesthesia: local
--- NOTE | 2024-05-18 13:29 | PC.NURSE ---
Patient back from Lumbar puncture,marcose CDI in the lower back,encouraged to lie down flat
[2024-05-18 13:49] LABS: CSF Appearance Clear, Colorless; CSF Tube # 2
[2024-05-18 13:58] LABS: Glucose CSF 127 mg/dL; Total Protein CSF 40.1 mg/dL (15-45)
[2024-05-18 15:04] LABS: Appearance CSF CLEAR
[2024-05-18 15:05] LABS: Appearance CSF CLEAR; CSF Monos 19 %; CSF Monos 26 %; CSF Tube # 1; CSF Tube # 4; Color CSF COLORLESS; Lymphocytes CSF 2 %; Lymphocytes CSF 3 %; Neutrophils CSF 0 %; Neutrophils CSF 3 %; Red Blood Cell CSF 0 MM*3; Red Blood Cell CSF 22 MM*3; White Blood Cell CSF 2 MM*3; White Blood Cell CSF 9 MM*3
[2024-05-18 15:08] LABS: Cryptococcus neoformans/gattii Not Detected (Not Detect.); Enterovirus Not Detected (Not Detect.); Escherichia coli K1 Not Detected (Not Detect.); Haemophilus influenzae Not Detected (Not Detect.); Herpes simplex virus 1 Not Detected (Not Detect.); Herpes simplex virus 2 Not Detected (Not Detect.); Human herpesvirus 6 Not Detected (Not Detect.); Human parechovirus Not Detected (Not Detect.); Listeria monocytogenes Not Detected (Not Detect.); Neisseria meningitidis Not Detected (Not Detect.); Streptococcus agalactiae Not Detected (Not Detect.); Streptococcus pneumoniae Not Detected (Not Detect.); Varicella zoster virus Not Detected (Not Detect.)
[2024-05-18 19:38] LABS: Vancomycin Random 13.4 mcg/mL (15-20)
[2024-05-19] MEDS: Ampicillin Sodium 2 GM in 0.9 % Sodium Chloride 100 ML IV ×6 (03:40→23:51)
[2024-05-19] MEDS: dexAMETHasone sod phosphate 10 MG/ML VIAL IVPUSH ×4 (03:40→21:01)
[2024-05-19 03:49] VITALS: BP 108/55; PULSE 72; RESP 18; TEMP 36.2; O2SAT 97
[2024-05-19] MEDS: Levothyroxine Sodium 50 MCG TABLET PO (05:28)
[2024-05-19] MEDS: ACYCLOVIR SODIUM IV ×3 (05:28→21:59)
[2024-05-19] MEDS: SODIUM CHLORIDE 0.9% IV ×3 (05:28→21:59)
[2024-05-19 06:53] LABS: MANUAL DIFF FLAG NO
[2024-05-19 07:02] LABS: Basophils Absolute Auto 0.1 X10*3/uL (0.0-0.2); Basophils Percent Auto 0.3 % (0-2); Hematocrit 31.8 % (42.0-52.0); Hemoglobin 11.2 g/dl (14.0-18.0); Imm Gran Abs Auto 0.16 X10*3/uL (0.00-0.03); Imm Gran Pct Auto 0.9 % (0.0-0.4); Lymphocytes Absolute Auto 1.2 X10*3/uL (1.2-4.9); Lymphocytes Percent Auto 6.7 % (20-40); Mean Corpuscular HGB Conc 35.2 g/dl (31.0-36.0); Mean Corpuscular Hemoglobin 32.8 pg (27.0-33.0); Mean Corpuscular Volume 93.3 fL (80.0-98.0); Mean Platelet Volume 10.8 fL (9.4-12.4); Monocytes Absolute Auto 0.7 X10*3/uL (0.1-1.2); Monocytes Percent Auto 3.9 % (2-11); Neutrophils Percent Auto 88.2 % (45-73); Platelet Count 221 X10*3/uL (160-400); Red Blood Count 3.41 X10*6/uL (4.60-5.80); White Blood Count 18.2 X10*3/uL (4.8-10.8)
[2024-05-19 07:21] LABS: Alanine Aminotransferase 54 U/L (0-40); Albumin Level 3.4 g/dL (3.5-5.0); Alkaline Phosphatase 90 U/L (39-117); Anion Gap 14 (12-20); Aspartate Amino Transferase 54 U/L (5-37); Bilirubin Total 0.3 mg/dL (0.0-1.0); Blood Urea Nitrogen 18 mg/dL (9-16); Calcium 8.3 mg/dL (8.4-10.2); Carbon Dioxide 26 mmol/L (22-29); Chloride 103 mmol/L (96-108); Creatinine Clr Calc Pharmacy 57.8; Estimated Glomerular Filt Rate > 60; Glucose Fasting 147 mg/dL (60-99); Potassium 3.6 mmol/L (3.3-5.1); Sodium 139 mmol/L (135-145); Total Protein 6.7 g/dL (6.5-8.0)
[2024-05-19] MEDS: LORazepam 2 MG/ML VIAL 1 MG IVPUSH ×2 (07:34→12:18)
[2024-05-19] MEDS: Haloperidol Lactate 5 MG/ML VIAL IM (07:34)
[2024-05-19 07:54] VITALS: BP 97/53; PULSE 69; RESP 18; TEMP 36.6; O2SAT 94
[2024-05-19] MEDS: Albuterol Sulfate (0.083%) 2.5 MG/3 ML VIAL.NEB INHALE ×2 (08:17→19:25)
[2024-05-19] MEDS: Furosemide 40 MG TABLET PO ×2 (08:24→18:08)
[2024-05-19] MEDS: dilTIAZem HCL CD 180 MG CAP.ER.24H PO ×2 (08:24→21:01)
[2024-05-19] MEDS: Digoxin 0.125 MG TABLET PO (08:24)
[2024-05-19] MEDS: 0.9 % Sodium Chloride Flush 3 ML SYRINGE IVFLUSH ×3 (08:26→21:02)
[2024-05-19] MEDS: vancomycin HCL 750 MG in 0.9 % Sodium Chloride 250 ML 265 MG IV ×2 (09:16→21:02)
[2024-05-19] MEDS: cefTRIAXone sodium 2 GM VIAL IVPUSH ×2 (11:15→23:07)
[2024-05-19 13:16] VITALS: BP 107/58; PULSE 66; RESP 16; TEMP 36.7; O2SAT 93
--- NOTE | 2024-05-19 14:51 | P.PNIM_ITS ---
Subjective Subjective Date of Service: 05/19/24 Interval History: Episode of aggressive behavior responded well to therapies this a.m.. Tolerated MRI Review of Systems Unable to obtain secondary to confusion Physical Exam 2 Vital Signs: Vital Signs: Last Vital Signs Temp 98.0 F 05/19/24 13:16 Pulse 66 05/19/24 13:16 Resp 16 05/19/24 13:16 BP 107/58 L 05/19/24 13:16 Pulse Ox 93 05/19/24 13:16 O2 Del Method Room Air 05/19/24 13:16 BMI result Body Mass Index 19.8 Const: Other: Awake alert easily redirectable Resp: Other: Clear to auscultation bilaterally no rales rhonchi or wheezes Cardio: Other: No S4; positive S1-S2; no S3 murmurs rubs or gallops GI: Other: Soft nontender nondistended normoactive bowel sounds Neuro: Other: Moves all extremities with equal power Extrem: Other: No edema bilaterally Objective Data Active Medications Acetaminophen (Acetaminophen 325 Mg Tablet) 650 mg PO Q6H PRN PRN Reason: Pain, Mild (Pain Scale 1-3), fever or headache Albuterol Sulfate (Albuterol Sulfate (0.083%) 2.5 Mg/3 Ml Vial.Neb) 2.5 mg INHALE RQ4H WHILE AWAKE [facility] Last Admin: 05/19/24 12:37 Dose: Not Given Documented By: WALLACE Non-Admin Reason: See Note Albuterol Sulfate (Albuterol Sulfate 90 Mcg 8 Gm Inhaler) 2 puff INHALE Q4H PRN PRN Reason: for wheezing Calcium Carbonate (Calcium Carbonate 750 Mg Tab.Chew) 750 mg PO Q4H PRN PRN Reason: Heartburn Ceftriaxone Sodium (Ceftriaxone Sodium 2 Gm Vial) 2 gm IVPUSH Q12H [facility] Last Admin: 05/19/24 11:15 Dose: 2 gm Documented By: JOHN Dexamethasone Sodium Phosphate (Dexamethasone Sod Phosphate 10 Mg/Ml Vial) 10 mg IVPUSH Q6H [facility] Last Admin: 05/19/24 08:20 Dose: 10 mg Documented By: JOHN Digoxin (Digoxin 0.125 Mg Tablet) 0.125 mg PO DAILY [facility]; Protocol Last Admin: 05/19/24 08:24 Dose: 0.125 mg Documented By: JOHN Diltiazem HCl (Diltiazem Hcl Cd 180 Mg Cap.Er.24h) 180 mg PO BID [facility]; Protocol Last Admin: 05/19/24 08:24 Dose: 180 mg Documented By: JOHN Furosemide (Furosemide 40 Mg Tablet) 40 mg PO BIDWM [facility]; Protocol Last Admin: 05/19/24 08:24 Dose: 40 mg Documented By: JOHN Vancomycin HCl 750 mg/ Sodium (Chloride) 265 mls @ 265 mls/hr IV Q12H [facility] Last Infusion: 05/19/24 10:20 Dose: Infused Documented By: JOHN Acyclovir Sodium 685 mg/ (Sodium Chloride) 113.7 mls @ 113.7 mls/hr IV Q8H [facility] Last Infusion: 05/19/24 14:15 Dose: Infused Documented By: JOHN Ampicillin Sodium 2 gm/ Sodium (Chloride) 100 mls @ 200 mls/hr IV Q4H [facility] Last Infusion: 05/19/24 13:05 Dose: Infused Documented By: JOHN Levothyroxine Sodium (Levothyroxine Sodium 50 Mcg Tablet) 50 mcg PO DAILY@0600 [facility] Last Admin: 05/19/24 05:28 Dose: 50 mcg Documented By: ODRISTerri Lorazepam (Lorazepam 2 Mg/Ml Vial) 1 mg IVPUSH Q4H PRN PRN Reason: agitation Magnesium Hydroxide (Milk Of Magnesia 30 Ml Oral.Susp) 30 ml PO DAILY PRN PRN Reason: Constipation Melatonin (Melatonin 3 Mg Tablet) 6 mg PO BEDTIME PRN PRN Reason: Insomnia Last Admin: 05/17/24 23:15 Dose: 6 mg Documented By: UGO-MANA Ondansetron HCl (Ondansetron Hcl 4 Mg/2 Ml Vial) 4 mg IVPUSH Q8H PRN PRN Reason: Nausea and Vomiting Pharmacy Consult (Consult Rx Vancomycin Dosing) 1 each MISCELLANE DAILY PRN PRN Reason: Consult order Sodium Chloride (0.9 % Sodium Chloride Flush 3 Ml Syringe) 3 ml IVFLUSH QSHIFT [facility] Last Admin: 05/19/24 08:26 Dose: 3 ml Documented By: JOHN Labs 05/19/24 05:47 05/19/24 05:47 Labs: Laboratory Results - last 24 hr 05/18/24 05/18/2405/18/24 12:20 12:20 12:20 MCV MCH MCHC RDW Plt Count MPV Immature Gran % (Auto) Neut % (Auto) Lymph % (Auto) [place] % (Auto) Eos % (Auto) Baso % (Auto) Lymph # (Auto) [place] # (Auto) Eos # (Auto) Baso # (Auto) Abs Immat Gran (auto) Absolute Neuts (auto) Absolute Nucleated RBC Nucleated RBC % (auto) Anion Gap Estim Creat Clear Calc Estimated GFR Fasting Glucose Calcium Total Bilirubin AST ALT Alkaline Phosphatase Total Protein Albumin CSF Tube Number 1 4 CSF Volume 2.0 2.0 CSF Appearance CLEAR CSF Color CSF WBC CSF RBC CSF Neutrophils CSF Lymphocytes CSF Monocytes % CSF C.neoform/gat PCR CSF CMV DNA (PCR) CSF Enterovirus (PCR) CSF E. coli K1 (PCR) CSF H. influenzae (PCR) CSF HSV I (PCR) CSF HSV II (PCR) CSF HHV 6 (PCR) CSF L.monocytogenes PCR CSF N. meningitidis PCR CSF Parechovirus (PCR) CSF S. agalactiae (PCR) CSF S. pneumoniae (PCR) CSF VZV (PCR) Random Vancomycin 05/18/24 05/18/24 05/18/24 12:20 12:20 12:20 MCV MCH MCHC RDW Plt Count MPV Immature Gran % (Auto) Neut % (Auto) Lymph % (Auto) [place] % (Auto) Eos % (Auto) Baso % (Auto) Lymph # (Auto) [place] # (Auto) Eos # (Auto) Baso # (Auto) Abs Immat Gran (auto) Absolute Neuts (auto) Absolute Nucleated RBC Nucleated RBC % (auto) Anion Gap Estim Creat Clear Calc Estimated GFR Fasting Glucose Calcium Total Bilirubin AST ALT Alkaline Phosphatase Total Protein Albumin CSF Tube Number CSF Volume CSF Appearance CLEAR CSF Color COLORLESS COLORLESS CSF WBC 9 2 CSF RBC 22 CSF Neutrophils CSF Lymphocytes CSF Monocytes % CSF C.neoform/gat PCR CSF CMV DNA (PCR) CSF Enterovirus (PCR) CSF E. coli K1 (PCR) CSF H. influenzae (PCR) CSF HSV I (PCR) CSF HSV II (PCR) CSF HHV 6 (PCR) CSF L.monocytogenes PCR CSF N. meningitidis PCR CSF Parechovirus (PCR) CSF S. agalactiae (PCR) CSF S. pneumoniae (PCR) CSF VZV (PCR) Random Vancomycin 05/18/24 05/18/24 05/18/24 12:20 12:20 12:20 MCV MCH MCHC RDW Plt Count MPV Immature Gran % (Auto) Neut % (Auto) Lymph % (Auto) [place] % (Auto) Eos % (Auto) Baso % (Auto) Lymph # (Auto) [place] # (Auto) Eos # (Auto) Baso # (Auto) Abs Immat Gran (auto) Absolute Neuts (auto) Absolute Nucleated RBC Nucleated RBC % (auto) Anion Gap Estim Creat Clear Calc Estimated GFR Fasting Glucose Calcium Total Bilirubin AST ALT Alkaline Phosphatase Total Protein Albumin CSF Tube Number CSF Volume CSF Appearance CSF Color CSF WBC CSF RBC 0 CSF Neutrophils 3 0 CSF Lymphocytes 2 3 CSF Monocytes % 19 CSF C.neoform/gat PCR CSF CMV DNA (PCR) CSF Enterovirus (PCR) CSF E. coli K1 (PCR) CSF H. influenzae (PCR) CSF HSV I (PCR) CSF HSV II (PCR) CSF HHV 6 (PCR) CSF L.monocytogenes PCR CSF N. meningitidis PCR CSF Parechovirus (PCR) CSF S. agalactiae (PCR) CSF S. pneumoniae (PCR) CSF VZV (PCR) Random Vancomycin 05/18/24 05/18/24 05/19/24 12:20 19:06 05:47 MCV 93.3 MCH 32.8 MCHC 35.2 RDW 13.0 Plt Count 221 D MPV 10.8 Immature Gran % (Auto) 0.9 H Neut % (Auto) 88.2 H Lymph % (Auto) 6.7 L [place] % (Auto) 3.9 Eos % (Auto) 0.0 Baso % (Auto) 0.3 Lymph # (Auto) 1.2 [place] # (Auto) 0.7 Eos # (Auto) 0.0 Baso # (Auto) 0.1 Abs Immat Gran (auto) 0.16 H Absolute Neuts (auto) 16.0 H Absolute Nucleated RBC 0.000 Nucleated RBC % (auto) 0.0 Anion Gap 14 Estim Creat Clear Calc 57.8 Estimated GFR > 60 Fasting Glucose 147 H Calcium 8.3 L Total Bilirubin 0.3 AST 54 H ALT 54 H Alkaline Phosphatase 90 Total Protein 6.7 Albumin 3.4 L CSF Tube Number CSF Volume CSF Appearance CSF Color CSF WBC CSF RBC CSF Neutrophils CSF Lymphocytes CSF Monocytes % 26 CSF C.neoform/gat PCR Not Detected CSF CMV DNA (PCR) Not Detected CSF Enterovirus (PCR) Not Detected CSF E. coli K1 (PCR) Not Detected CSF H. influenzae (PCR) Not Detected CSF HSV I (PCR) Not Detected CSF HSV II (PCR) Not Detected CSF HHV 6 (PCR) Not Detected CSF L.monocytogenes PCR Not Detected CSF N. meningitidis PCR Not Detected CSF Parechovirus (PCR) Not Detected CSF S. agalactiae (PCR) Not Detected CSF S. pneumoniae (PCR) Not Detected CSF VZV (PCR) Not Detected Random Vancomycin 13.4 L Microbiology Microbiology Results: Microbiology 05/18/24 12:21 Gram Stain - Final Cerebrospinal Fluid CSF Examination - Final Fluid Description - Final CSF Culture - Preliminary No growth after 1 day 05/17/24 00:13 Blood Culture - Preliminary Blood - Venous No growth after 48 hours. 05/17/24 00:06 Blood Culture - Preliminary Blood - Venous No growth after 48 hours. Assessment and Plan (1) Acute encephalopathy: Status: Acute (2) Dementia: Status: Acute Plan This is a 84-year-old male with pertinent history of persistent atrial fibrillation on Xarelto, congestive heart failure with preserved ejection fraction, Alzheimer's dementia, hypothyroidism who was brought to the emergency department for evaluation of confusion. 1.Acute encephalopathy -continue empiric therapy with vanco/ampicillin/ceftriaxone/acyclovir... Await Neurology input -LP essentially unremarkable -MRI without acute findings specifically no indication of encephalitis 2. HFpEF -stable and well compensated -continue current therapies 3.Alzheimer's dementia -await LP results -discussion with pending; may need psych consultation 4.Persistent atrial fibrillation -acceptable rate control -resume Xarelto in a.m. 5.Hypothyroidism -Synthroid as ordered Mechanical Full code Requires ongoing hospitalization for IV antibiotics to empirically treat for acute encephalopathy pending lumbar puncture. We will likely need specialty consultation Quality Stroke Does the patient have a stroke diagnosis?: No VTE Prior VTE?: No VTE Risk Level:: Medical - moderate - high VTE Device Contraindication: N/A - Device Ordered VTE Drug Contraindication: Treatment Not Indicated
[2024-05-19 15:32] VITALS: BP 104/55; PULSE 52; RESP 18; TEMP 36.8; O2SAT 93
--- NOTE | 2024-05-19 15:52 | PM.NEUROCN ---
History of Present Illness Data of Consult Service Date: 05/19/24 Primary Care Provider: Sinan Luis MD HPI Reason for consult: Encephalopathy 84 years old man who probably has underlying diagnosis of dementia was brought to hospital with change in mental status or confusion. Later he was noted to be showing aggressive behavior. Multiple investigations were done including CT scan of brain MRI of brain a lumbar puncture, not revealing any significant abnormality. At 1 point he had a fever of 1 of for in his white cell count was high. CSF meningoencephalitis panel was negative. Review of Systems Review of Systems: Could not be done with him [facility] Past Medical History Medical History Chronic heart failure with preserved ejection fraction (HFpEF) Non-rheumatic aortic stenosis Persistent atrial fibrillation Afib Hypothyroidism Family History Family History Father Alzheimers disease Mental health disorder Mother Dementia Mental health disorder Surgical History Surgical History H/O prostatectomy Social History Social History Household Members: Spouse Housing: House Alcohol intake: former Patient Tobacco Use Status: Tobacco use Unknown Tobacco use type: Cigarette Cigarette Packs Per Day: 0.5 Cigarettes Per Day: 10 Years Smoked: 45 +/- e-Cigarette/Vaping Use: Never Used Second Hand Smoke Exposure: Yes service: No Current occupational status: retired Cognitive needs: No Hearing needs: No Vision needs: Yes Meds Allergies Allergy/AdvReac Type Severity Reaction Status Date / Time No Known Allergies Allergy Verified 05/16/24 17:58 [No Known Allergies*] Active Medications: Current Medications Acetaminophen (Acetaminophen 325 Mg Tablet) 650 mg PO Q6H PRN PRN Reason: Pain, Mild (Pain Scale 1-3), fever or headache Albuterol Sulfate (Albuterol Sulfate (0.083%) 2.5 Mg/3 Ml Vial.Neb) 2.5 mg INHALE RQ4H WHILE AWAKE [facility] Last Admin: 05/19/24 12:37 Dose: Not Given Albuterol Sulfate (Albuterol Sulfate 90 Mcg 8 Gm Inhaler) 2 puff INHALE Q4H PRN PRN Reason: for wheezing Calcium Carbonate (Calcium Carbonate 750 Mg Tab.Chew) 750 mg PO Q4H PRN PRN Reason: Heartburn Ceftriaxone Sodium (Ceftriaxone Sodium 2 Gm Vial) 2 gm IVPUSH Q12H [facility] Last Admin: 05/19/24 11:15 Dose: 2 gm Dexamethasone Sodium Phosphate (Dexamethasone Sod Phosphate 10 Mg/Ml Vial) 10 mg IVPUSH Q6H [facility] Last Admin: 05/19/24 15:12 Dose: 10 mg Digoxin (Digoxin 0.125 Mg Tablet) 0.125 mg PO DAILY [facility]; Protocol Last Admin: 05/19/24 08:24 Dose: 0.125 mg Diltiazem HCl (Diltiazem Hcl Cd 180 Mg Cap.Er.24h) 180 mg PO BID [facility]; Protocol Last Admin: 05/19/24 08:24 Dose: 180 mg Furosemide (Furosemide 40 Mg Tablet) 40 mg PO BIDWM [facility]; Protocol Last Admin: 05/19/24 08:24 Dose: 40 mg Vancomycin HCl 750 mg/ Sodium (Chloride) 265 mls @ 265 mls/hr IV Q12H [facility] Last Infusion: 05/19/24 10:20 Dose: Infused Acyclovir Sodium 685 mg/ (Sodium Chloride) 113.7 mls @ 113.7 mls/hr IV Q8H [facility] Last Infusion: 05/19/24 14:15 Dose: Infused Ampicillin Sodium 2 gm/ Sodium (Chloride) 100 mls @ 200 mls/hr IV Q4H [facility] Last Infusion: 05/19/24 13:05 Dose: Infused Levothyroxine Sodium (Levothyroxine Sodium 50 Mcg Tablet) 50 mcg PO DAILY@0600 [facility] Last Admin: 05/19/24 05:28 Dose: 50 mcg Lorazepam (Lorazepam 2 Mg/Ml Vial) 1 mg IVPUSH Q4H PRN PRN Reason: agitation Magnesium Hydroxide (Milk Of Magnesia 30 Ml Oral.Susp) 30 ml PO DAILY PRN PRN Reason: Constipation Melatonin (Melatonin 3 Mg Tablet) 6 mg PO BEDTIME PRN PRN Reason: Insomnia Last Admin: 05/17/24 23:15 Dose: 6 mg Ondansetron HCl (Ondansetron Hcl 4 Mg/2 Ml Vial) 4 mg IVPUSH Q8H PRN PRN Reason: Nausea and Vomiting Pharmacy Consult (Consult Rx Vancomycin Dosing) 1 each MISCELLANE DAILY PRN PRN Reason: Consult order Sodium Chloride (0.9 % Sodium Chloride Flush 3 Ml Syringe) 3 ml IVFLUSH QSHIFT [facility] Last Admin: 05/19/24 08:26 Dose: 3 ml Home Medications ?Medication ?Instructions ?Recorded ?Confirmed ?Last Taken ?Type levothyroxine 50 mcg tablet 50 mcg PO DAILY@0600 05/17/24 05/17/24 05/14/24 History Physical Exam Vital Signs: Vital Signs: Last Vital Signs Temp 98.2 F 05/19/24 15:32 Pulse 52 05/19/24 15:32 Resp 18 05/19/24 15:32 BP 104/55 L 05/19/24 15:32 Pulse Ox 93 05/19/24 15:32 O2 Del Method Room Air 05/19/24 15:32 BMI result Body Mass Index 19.8 Neuro: Other: Very drowsy and almost snoring. With repeated shouting he barely open his eyes blurred at his name but did not follow any commands. There was no obvious gaze deviation. There was no obvious abnormal posturing or jerking. Deep tendon reflexes were absent with bilateral extensor plantars. Results Labs 05/19/24 05:47 05/19/24 05:47 Labs: Short CBC 05/19/24 Range/Units 05:47 WBC 18.2 H (4.8-10.8) X10*3/uL Hgb 11.2 L (14.0-18.0) g/dl Hct 31.8 L (42.0-52.0) % Plt Count 221 D (160-400) X10*3/uL BMP 05/19/24 05:47 Sodium 139 Potassium 3.6 Chloride 103 Carbon Dioxide 26 BUN 18 H Creatinine 0.95 Calcium 8.3 L Liver Function 05/19/24 Range/Units 05:47 Total Bilirubin 0.3 (0.0-1.0) mg/dL AST 54 H (5-37) U/L ALT 54 H (0-40) U/L Alkaline Phosphatase 90 (39-117) U/L Albumin 3.4 L (3.5-5.0) g/dL MRI of brain did not reveal any acute abnormality. Mild diffuse cerebral atrophy and mild microvascular ischemic changes were noted. Microbiology Microbiology Results: Microbiology 05/18/24 12:21 Cerebrospinal Fluid Gram Stain - Final 05/18/24 12:21 Cerebrospinal Fluid CSF Examination - Final 05/18/24 12:21 Cerebrospinal Fluid Fluid Description - Final 05/18/24 12:21 Cerebrospinal Fluid CSF Culture - Preliminary No growth after 1 day 05/17/24 00:13 Blood - Venous Blood Culture - Preliminary No growth after 48 hours. 05/17/24 00:06 Blood - Venous Blood Culture - Preliminary No growth after 48 hours. Assessment and Plan (1) Acute encephalopathy: Status: Acute 84 years old man with acute encephalopathy. With no definite explanation, my recommendation is to obtain an EEG to rule out epileptic encephalopathy. Infectious etiology including encephalitis is a possibility despite having a negative test on CSF. Procedures Date of Service Date of Service: 05/19/24
[2024-05-19 19:25] LABS: Vancomycin Random 15.4 mcg/mL (15-20)
[2024-05-19 19:26] VITALS: PULSE 97; RESP 18; O2SAT 93
[2024-05-19 19:47] VITALS: BP 110/71; PULSE 80; RESP 18; TEMP 36.3; O2SAT 96
[2024-05-20] VITALS (7 sets, daily range): BP systolic 112–133; BP diastolic 57–61; PULSE 64–94; RESP 16–18; TEMP 36.3–37.2; O2SAT 92–94
--- NOTE | 2024-05-20 | EEG_ITS ---
This is a 16-channel EEG with an EKG lead. The patient is reported awake and drowsy during the tracing. Background EEG rhythm is asymmetrical with left hemispheric lead revealing low to medium amplitude mixed theta beta rhythm while on the right side, rhythm was mixed theta delta with intermittent sharply controlled theta range discharges. Occasional sharp wave was noted. Some lead and muscle artifacts are noted. Photic stimulation did not produce any significant abnormality. Hyperventilation was not performed. Cardiac lead did not reveal any significant abnormality. IMPRESSION: Abnormal EEG suggestive of right hemispheric epileptic discharges, which could explain his mental status. Appropriate management is recommended. MD DANIELLE Brown/ROZ / [id number]
[2024-05-20] MEDS: dexAMETHasone sod phosphate 10 MG/ML VIAL IVPUSH ×4 (03:26→21:31)
[2024-05-20] MEDS: Ampicillin Sodium 2 GM in 0.9 % Sodium Chloride 100 ML IV ×2 (03:29→08:45)
[2024-05-20] MEDS: ACYCLOVIR SODIUM IV (05:02)
[2024-05-20] MEDS: SODIUM CHLORIDE 0.9% IV (05:02)
[2024-05-20] MEDS: Levothyroxine Sodium 50 MCG TABLET PO (06:19)
[2024-05-20 06:27] LABS: MANUAL DIFF FLAG NO
[2024-05-20 06:34] LABS: Basophils Absolute Auto 0.1 X10*3/uL (0.0-0.2); Basophils Percent Auto 0.4 % (0-2); Eosinophils Absolute Auto 0.5 X10*3/uL (0.0-0.4); Eosinophils Percent Auto 3.8 % (0-4); Hemoglobin 10.2 g/dl (14.0-18.0); Imm Gran Abs Auto 0.18 X10*3/uL (0.00-0.03); Imm Gran Pct Auto 1.4 % (0.0-0.4); Lymphocytes Absolute Auto 1.4 X10*3/uL (1.2-4.9); Lymphocytes Percent Auto 11.3 % (20-40); Mean Corpuscular HGB Conc 35.2 g/dl (31.0-36.0); Mean Corpuscular Hemoglobin 32.5 pg (27.0-33.0); Mean Corpuscular Volume 92.4 fL (80.0-98.0); Mean Platelet Volume 10.6 fL (9.4-12.4); Monocytes Absolute Auto 0.6 X10*3/uL (0.1-1.2); Monocytes Percent Auto 4.8 % (2-11); Neutrophils Absolute Auto 9.7 x10*3/uL (2.0-8.3); Neutrophils Percent Auto 78.3 % (45-73); Platelet Count 211 X10*3/uL (160-400); Red Blood Count 3.14 X10*6/uL (4.60-5.80); Red Cell Distribution Width 13.2 % (11.0-16.0); White Blood Count 12.4 X10*3/uL (4.8-10.8)
[2024-05-20 06:56] LABS: Creatinine Clr Calc Pharmacy 65.4; Estimated Glomerular Filt Rate > 60
[2024-05-20] MEDS: Albuterol Sulfate (0.083%) 2.5 MG/3 ML VIAL.NEB INHALE ×3 (07:45→19:34)
[2024-05-20] MEDS: Digoxin 0.125 MG TABLET PO (08:42)
[2024-05-20] MEDS: dilTIAZem HCL CD 180 MG CAP.ER.24H PO ×2 (08:42→21:31)
[2024-05-20] MEDS: Furosemide 40 MG TABLET PO ×2 (08:42→16:29)
[2024-05-20] MEDS: 0.9 % Sodium Chloride Flush 3 ML SYRINGE IVFLUSH ×2 (08:44→16:31)
[2024-05-20] MEDS: vancomycin HCL 750 MG in 0.9 % Sodium Chloride 250 ML 265 MG IV ×2 (09:52→21:29)
[2024-05-20] MEDS: cefTRIAXone sodium 2 GM VIAL IVPUSH ×2 (11:19→22:34)
--- NOTE | 2024-05-20 12:21 | MHC.CM.PN ---
EMR REVIEWED AND PER MD ROUNDS, PT IS NOT MEDICALLY CLEARED FOR DC (NEURO W/U) CM WILL CONTINUE TO FOLLOW FOR DC PLAN/NEEDS.
[2024-05-20 13:43] LABS: VDRL Qualitative CSF Nonreactive (Nonreactive)
[2024-05-20] MEDS: LORazepam 2 MG/ML VIAL 1 MG IVPUSH ×2 (14:34→21:31)
--- NOTE | 2024-05-20 14:36 | HO.PM.IMPN ---
Subjective Subjective Date of Service: 05/20/24 Interval History: More cooperative today. Sleeping intermittently Review of Systems Unable to obtain secondary to confusion Physical Exam Vital Signs: Vital Signs: Last Vital Signs Temp 98.2 F 05/20/24 07:58 Pulse 76 05/20/24 12:48 Resp 16 05/20/24 07:58 BP 117/57 L 05/20/24 12:48 Pulse Ox 94 05/20/24 12:48 O2 Del Method Room Air 05/20/24 07:58 BMI result Body Mass Index 19.8 Const: Other: Awake alert easily redirectable Resp: Other: Clear to auscultation bilaterally no rales rhonchi or wheezes Cardio: Other: No S4; positive S1-S2; no S3 murmurs rubs or gallops GI: Other: Soft nontender nondistended normoactive bowel sounds Neuro: Other: Moves all extremities with equal power Extrem: Other: No edema bilaterally Objective Data Active Medications Acetaminophen (Acetaminophen 325 Mg Tablet) 650 mg PO Q6H PRN PRN Reason: Pain, Mild (Pain Scale 1-3), fever or headache Albuterol Sulfate (Albuterol Sulfate (0.083%) 2.5 Mg/3 Ml Vial.Neb) 2.5 mg INHALE RQ4H WHILE AWAKE [facility] Last Admin: 05/20/24 11:45 Dose: 2.5 mg Documented By: ALBINA Albuterol Sulfate (Albuterol Sulfate 90 Mcg 8 Gm Inhaler) 2 puff INHALE Q4H PRN PRN Reason: for wheezing Calcium Carbonate (Calcium Carbonate 750 Mg Tab.Chew) 750 mg PO Q4H PRN PRN Reason: Heartburn Ceftriaxone Sodium (Ceftriaxone Sodium 2 Gm Vial) 2 gm IVPUSH Q12H [facility] Last Admin: 05/20/24 11:19 Dose: 2 gm Documented By: JOHN Dexamethasone Sodium Phosphate (Dexamethasone Sod Phosphate 10 Mg/Ml Vial) 10 mg IVPUSH Q6H [facility] Last Admin: 05/20/24 08:41 Dose: 10 mg Documented By: JOHN Digoxin (Digoxin 0.125 Mg Tablet) 0.125 mg PO DAILY [facility]; Protocol Last Admin: 05/20/24 08:42 Dose: 0.125 mg Documented By: JOHN Diltiazem HCl (Diltiazem Hcl Cd 180 Mg Cap.Er.24h) 180 mg PO BID [facility]; Protocol Last Admin: 05/20/24 08:42 Dose: 180 mg Documented By: JOHN Furosemide (Furosemide 40 Mg Tablet) 40 mg PO BIDWM [facility]; Protocol Last Admin: 05/20/24 08:42 Dose: 40 mg Documented By: JOHN Vancomycin HCl 750 mg/ Sodium (Chloride) 265 mls @ 265 mls/hr IV Q12H [facility] Last Infusion: 05/20/24 10:54 Dose: Infused Documented By: JOHN Levothyroxine Sodium (Levothyroxine Sodium 50 Mcg Tablet) 50 mcg PO DAILY@0600 [facility] Last Admin: 05/20/24 06:19 Dose: 50 mcg Documented By: ODRISM Lorazepam (Lorazepam 2 Mg/Ml Vial) 1 mg IVPUSH Q4H PRN PRN Reason: agitation Last Admin: 05/20/24 14:34 Dose: 1 mg Documented By: JOHN Magnesium Hydroxide (Milk Of Magnesia 30 Ml Oral.Susp) 30 ml PO DAILY PRN PRN Reason: Constipation Melatonin (Melatonin 3 Mg Tablet) 6 mg PO BEDTIME PRN PRN Reason: Insomnia Last Admin: 05/17/24 23:15 Dose: 6 mg Documented By: UGO-MANA Ondansetron HCl (Ondansetron Hcl 4 Mg/2 Ml Vial) 4 mg IVPUSH Q8H PRN PRN Reason: Nausea and Vomiting Pharmacy Consult (Consult Rx Vancomycin Dosing) 1 each MISCELLANE DAILY PRN PRN Reason: Consult order Sodium Chloride (0.9 % Sodium Chloride Flush 3 Ml Syringe) 3 ml IVFLUSH QSHIFT [facility] Last Admin: 05/20/24 08:44 Dose: 3 ml Documented By: JOHN Labs 05/20/24 05:38 05/20/24 05:38 Labs: Laboratory Results - last 24 hr 05/18/24 05/19/24 05/20/24 12:20 18:59 05:38 MCV 92.4 MCH 32.5 MCHC 35.2 RDW 13.2 Plt Count 211 MPV 10.6 Immature Gran % (Auto) 1.4 H Neut % (Auto) 78.3 H Lymph % (Auto) 11.3 L [place] % (Auto) 4.8 Eos % (Auto) 3.8 Baso % (Auto) 0.4 Lymph # (Auto) 1.4 [place] # (Auto) 0.6 Eos # (Auto) 0.5 H Baso # (Auto) 0.1 Abs Immat Gran (auto) 0.18 H Absolute Neuts (auto) 9.7 H Absolute Nucleated RBC 0.000 Nucleated RBC % (auto) 0.0 Estim Creat Clear Calc 65.4 Estimated GFR > 60 CSF VDRL Nonreactive Random Vancomycin 15.4 Microbiology Microbiology Results: Microbiology 05/18/24 12:21 Gram Stain - Final Cerebrospinal Fluid CSF Examination - Final Fluid Description - Final CSF Culture - Preliminary No growth after 2 days Assessment and Plan (1) Acute encephalopathy: Status: Acute Plan This is a 84-year-old male with pertinent history of persistent atrial fibrillation on Xarelto, congestive heart failure with preserved ejection fraction, Alzheimer's dementia, hypothyroidism who was brought to the emergency department for evaluation of confusion. 1.Acute encephalopathy -continue empiric therapy with vanco/ceftriaxone (4) -MRI without acute findings specifically no indication of encephalitis 2. HFpEF -stable and well compensated -continue current therapies 3.Alzheimer's dementia -await LP results -discussion with pending; may need psych consultation 4.Persistent atrial fibrillation -acceptable rate control -resume Xarelto in a.m. 5.Hypothyroidism -Synthroid as ordered Mechanical Full code Requires ongoing hospitalization for IV antibiotics to empirically treat for acute encephalopathy pending lumbar puncture. We will likely need specialty consultation Quality Stroke Does the patient have a stroke diagnosis?: No VTE Prior VTE?: No VTE Risk Level:: Medical - moderate - high VTE Device Contraindication: N/A - Device Ordered VTE Drug Contraindication: Treatment Not Indicated
[2024-05-21 04:00] VITALS: BP 123/59; PULSE 75; RESP 18; TEMP 36.9; O2SAT 92
[2024-05-21] MEDS: dexAMETHasone sod phosphate 10 MG/ML VIAL IVPUSH ×4 (04:44→20:15)
[2024-05-21 05:49] LABS: MANUAL DIFF FLAG NO
[2024-05-21 05:55] LABS: Basophils Absolute Auto 0.1 X10*3/uL (0.0-0.2); Basophils Percent Auto 0.4 % (0-2); Eosinophils Percent Auto 0.2 % (0-4); Hematocrit 30.9 % (42.0-52.0); Imm Gran Abs Auto 0.55 X10*3/uL (0.00-0.03); Lymphocytes Percent Auto 14.2 % (20-40); Mean Corpuscular HGB Conc 35.6 g/dl (31.0-36.0); Mean Corpuscular Hemoglobin 32.4 pg (27.0-33.0); Mean Corpuscular Volume 90.9 fL (80.0-98.0); Mean Platelet Volume 9.9 fL (9.4-12.4); Monocytes Absolute Auto 0.7 X10*3/uL (0.1-1.2); Monocytes Percent Auto 4.7 % (2-11); NRBC Pct Auto 0.1 /100WBC (0.0-0.2); Neutrophils Absolute Auto 10.5 x10*3/uL (2.0-8.3); Neutrophils Percent Auto 76.5 % (45-73); Platelet Count 232 X10*3/uL (160-400); Red Cell Distribution Width 12.9 % (11.0-16.0); White Blood Count 13.8 X10*3/uL (4.8-10.8)
[2024-05-21 06:10] LABS: Alanine Aminotransferase 70 U/L (0-40); Albumin Level 3.4 g/dL (3.5-5.0); Alkaline Phosphatase 75 U/L (39-117); Anion Gap 16 (12-20); Aspartate Amino Transferase 46 U/L (5-37); Bilirubin Total 0.3 mg/dL (0.0-1.0); Blood Urea Nitrogen 19 mg/dL (9-16); Carbon Dioxide 25 mmol/L (22-29); Chloride 102 mmol/L (96-108); Creatinine Clr Calc Pharmacy 65.4; Estimated Glomerular Filt Rate > 60; Glucose Fasting 162 mg/dL (60-99); Potassium 3.5 mmol/L (3.3-5.1); Sodium 139 mmol/L (135-145); Total Protein 6.5 g/dL (6.5-8.0)
[2024-05-21] MEDS: Levothyroxine Sodium 50 MCG TABLET PO (06:41)
[2024-05-21 07:38] VITALS: BP 122/61; PULSE 62; RESP 16; TEMP 36.7; O2SAT 94
[2024-05-21 07:42] VITALS: PULSE 79; RESP 18; O2SAT 92
[2024-05-21] MEDS: Albuterol Sulfate (0.083%) 2.5 MG/3 ML VIAL.NEB INHALE ×2 (07:42→19:47)
[2024-05-21] MEDS: 0.9 % Sodium Chloride Flush 3 ML SYRINGE IVFLUSH ×4 (07:46→23:38)
[2024-05-21] MEDS: dilTIAZem HCL CD 180 MG CAP.ER.24H PO ×2 (07:46→20:18)
[2024-05-21] MEDS: Digoxin 0.125 MG TABLET PO (07:47)
[2024-05-21] MEDS: Furosemide 40 MG TABLET PO ×2 (07:52→17:36)
[2024-05-21] MEDS: vancomycin HCL 750 MG in 0.9 % Sodium Chloride 250 ML 265 MG IV (09:12)
[2024-05-21] MEDS: cefTRIAXone sodium 2 GM VIAL IVPUSH ×2 (12:03→23:38)
--- NOTE | 2024-05-21 13:56 | P.PNIM_ITS ---
Subjective Subjective Date of Service: 05/21/24 Interval History: No acute issues overnight. Behavior much more manageable. No aggressive outbursts Review of Systems Unable to obtain secondary to confusion Physical Exam 2 Vital Signs: Vital Signs: Last Vital Signs Temp 98.1 F 05/21/24 07:38 Pulse 79 05/21/24 07:42 Resp 18 05/21/24 07:42 BP 122/61 05/21/24 07:38 Pulse Ox 94 05/21/24 07:38 O2 Del Method Room Air 05/21/24 07:38 BMI result Body Mass Index 19.8 Const: Other: Awake alert easily redirectable Resp: Other: Clear to auscultation bilaterally no rales rhonchi or wheezes Cardio: Other: No S4; positive S1-S2; no S3 murmurs rubs or gallops GI: Other: Soft nontender nondistended normoactive bowel sounds Neuro: Other: Moves all extremities with equal power Extrem: Other: No edema bilaterally Objective Data Active Medications Acetaminophen (Acetaminophen 325 Mg Tablet) 650 mg PO Q6H PRN PRN Reason: Pain, Mild (Pain Scale 1-3), fever or headache Albuterol Sulfate (Albuterol Sulfate (0.083%) 2.5 Mg/3 Ml Vial.Neb) 2.5 mg INHALE RQ4H WHILE AWAKE [facility] Last Admin: 05/21/24 11:54 Dose: Not Given Documented By: ALBINA Non-Admin Reason: pt agitated, NR staff in room Albuterol Sulfate (Albuterol Sulfate 90 Mcg 8 Gm Inhaler) 2 puff INHALE Q4H PRN PRN Reason: for wheezing Calcium Carbonate (Calcium Carbonate 750 Mg Tab.Chew) 750 mg PO Q4H PRN PRN Reason: Heartburn Ceftriaxone Sodium (Ceftriaxone Sodium 2 Gm Vial) 2 gm IVPUSH Q12H [facility] Last Admin: 05/21/24 12:03 Dose: 2 gm Documented By: OSWALDO Dexamethasone Sodium Phosphate (Dexamethasone Sod Phosphate 10 Mg/Ml Vial) 10 mg IVPUSH Q6H [facility] Last Admin: 05/21/24 07:47 Dose: 10 mg Documented By: OSWALDO Digoxin (Digoxin 0.125 Mg Tablet) 0.125 mg PO DAILY [facility]; Protocol Last Admin: 05/21/24 07:47 Dose: 0.125 mg Documented By: OSWALDO Diltiazem HCl (Diltiazem Hcl Cd 180 Mg Cap.Er.24h) 180 mg PO BID [facility]; Protocol Last Admin: 05/21/24 07:46 Dose: 180 mg Documented By: OSWALDO Furosemide (Furosemide 40 Mg Tablet) 40 mg PO BIDWM [facility]; Protocol Last Admin: 05/21/24 07:52 Dose: 40 mg Documented By: OSWALDO Vancomycin HCl 750 mg/ Sodium (Chloride) 265 mls @ 265 mls/hr IV Q12H [facility] Last Infusion: 05/21/24 10:12 Dose: Infused Documented By: OSWALDO Levothyroxine Sodium (Levothyroxine Sodium 50 Mcg Tablet) 50 mcg PO DAILY@0600 [facility] Last Admin: 05/21/24 06:41 Dose: 50 mcg Documented By: KRYSTIAN Lorazepam (Lorazepam 2 Mg/Ml Vial) 1 mg IVPUSH Q4H PRN PRN Reason: agitation Last Admin: 05/20/24 21:31 Dose: 1 mg Documented By: SILVIANO Magnesium Hydroxide (Milk Of Magnesia 30 Ml Oral.Susp) 30 ml PO DAILY PRN PRN Reason: Constipation Melatonin (Melatonin 3 Mg Tablet) 6 mg PO BEDTIME PRN PRN Reason: Insomnia Last Admin: 05/17/24 23:15 Dose: 6 mg Documented By: JILLIAN Ondansetron HCl (Ondansetron Hcl 4 Mg/2 Ml Vial) 4 mg IVPUSH Q8H PRN PRN Reason: Nausea and Vomiting Pharmacy Consult (Consult Rx Vancomycin Dosing) 1 each MISCELLANE DAILY PRN PRN Reason: Consult order Sodium Chloride (0.9 % Sodium Chloride Flush 3 Ml Syringe) 3 ml IVFLUSH QSHIFT [facility] Last Admin: 05/21/24 07:46 Dose: 3 ml Documented By: OSWALDO Labs 05/21/24 05:32 05/21/24 05:32 Labs: Laboratory Results - last 24 hr 05/21/24 05:32 MCV 90.9 MCH 32.4 MCHC 35.6 RDW 12.9 Plt Count 232 MPV 9.9 Immature Gran % (Auto) 4.0 H Neut % (Auto) 76.5 H Lymph % (Auto) 14.2 L [place] % (Auto) 4.7 Eos % (Auto) 0.2 Baso % (Auto) 0.4 Lymph # (Auto) 2.0 [place] # (Auto) 0.7 Eos # (Auto) 0.0 Baso # (Auto) 0.1 Abs Immat Gran (auto) 0.55 H Absolute Neuts (auto) 10.5 H Absolute Nucleated RBC 0.020 H Nucleated RBC % (auto) 0.1 Anion Gap 16 Estim Creat Clear Calc 65.4 Estimated GFR > 60 Fasting Glucose 162 H Calcium 8.0 L Total Bilirubin 0.3 AST 46 H ALT 70 H Alkaline Phosphatase 75 Total Protein 6.5 Albumin 3.4 L Microbiology Microbiology Results: Microbiology 05/18/24 12:21 Gram Stain - Final Cerebrospinal Fluid CSF Examination - Final Fluid Description - Final CSF Culture - Final No growth after 3 days. Assessment and Plan (1) Acute encephalopathy: Status: Acute Plan This is a 84-year-old male with pertinent history of persistent atrial fibrillation on Xarelto, congestive heart failure with preserved ejection fraction, Alzheimer's dementia, hypothyroidism who was brought to the emergency department for evaluation of confusion. 1.Acute encephalopathy -continue empiric therapy with vanco/ceftriaxone (5) -MRI without acute findings specifically no indication of encephalitis -mentation improving. We will need PT consult -discussed with family possibility of short-term placement. 2. HFpEF -stable and well compensated -continue current therapies 3.Alzheimer's dementia -await LP results -discussion with pending; may need psych consultation 4.Persistent atrial fibrillation -acceptable rate control -resume Xarelto in a.m. 5.Hypothyroidism -Synthroid as ordered Mechanical Full code Requires ongoing hospitalization for IV antibiotics to empirically treat for acute encephalopathy pending lumbar puncture. We will likely need specialty consultation Quality Stroke Does the patient have a stroke diagnosis?: No VTE Prior VTE?: No VTE Risk Level:: Medical - moderate - high VTE Device Contraindication: N/A - Device Ordered VTE Drug Contraindication: Treatment Not Indicated
[2024-05-21 15:22] VITALS: BP 114/60; PULSE 72; RESP 18; TEMP 36.6; O2SAT 93
[2024-05-21 19:36] VITALS: BP 142/64; PULSE 80; RESP 16; TEMP 36.8; O2SAT 97
[2024-05-21 19:50] VITALS: PULSE 86; O2SAT 91
[2024-05-21] MEDS: LORazepam 2 MG/ML VIAL 1 MG IVPUSH (20:15)
[2024-05-21 20:22] LABS: Vancomycin Random 17.8 mcg/mL (15-20)
[2024-05-21] MEDS: vancomycin HCL 750 MG in 0.9 % Sodium Chloride 250 ML 166.67 MG IV (20:43)
[2024-05-22] VITALS (8 sets, daily range): BP systolic 110–134; BP diastolic 58–66; PULSE 76–92; RESP 16–18; TEMP 36.4–37.2; O2SAT 90–97
[2024-05-22] MEDS: dexAMETHasone sod phosphate 10 MG/ML VIAL IVPUSH ×2 (02:53→08:13)
[2024-05-22] MEDS: Levothyroxine Sodium 50 MCG TABLET PO (05:09)
[2024-05-22 06:54] LABS: Hemoglobin 10.9 g/dl (14.0-18.0); Mean Corpuscular HGB Conc 35.2 g/dl (31.0-36.0); Mean Corpuscular Hemoglobin 32.2 pg (27.0-33.0); Mean Corpuscular Volume 91.4 fL (80.0-98.0); Mean Platelet Volume 10.2 fL (9.4-12.4); NRBC Pct Auto 0.2 /100WBC (0.0-0.2); Platelet Count 240 X10*3/uL (160-400); Red Blood Count 3.39 X10*6/uL (4.60-5.80); Red Cell Distribution Width 12.7 % (11.0-16.0); White Blood Count 11.3 X10*3/uL (4.8-10.8)
[2024-05-22 07:18] LABS: Alanine Aminotransferase 60 U/L (0-40); Albumin Level 3.1 g/dL (3.5-5.0); Alkaline Phosphatase 69 U/L (39-117); Anion Gap 10 (12-20); Aspartate Amino Transferase 31 U/L (5-37); Bilirubin Total 0.4 mg/dL (0.0-1.0); Blood Urea Nitrogen 17 mg/dL (9-16); Calcium 7.7 mg/dL (8.4-10.2); Carbon Dioxide 30 mmol/L (22-29); Chloride 101 mmol/L (96-108); Creatinine Clr Calc Pharmacy 71.3; Estimated Glomerular Filt Rate > 60; Glucose Fasting 153 mg/dL (60-99); Potassium 3.2 mmol/L (3.3-5.1); Sodium 138 mmol/L (135-145)
[2024-05-22 07:39] LABS: Band Neutrophils Percent 8 % (3-5); Lymphocytes Absolute Manual 1.2 X10*3/uL (1.2-4.9); Lymphocytes Percent Manual 11 % (20-40); Metamyelocytes Absolute 0.2 X10*3/uL; Metamyelocytes Percent 2 %; Monocytes Absolute Manual 1.2 X10*3/uL (0.1-1.2); Monocytes Percent Manual 11 % (2-11); Neutrophils Absolute Manual 8.6 X10*3/uL (2.0-8.3); Neutrophils Percent Manual 68 % (45-73); Nucleated Red Blood Cells 1 /100WBC (0-0)
[2024-05-22 07:41] LABS: Acanthocytes 2+ (3-5) /OIF; Platelet Estimate NORMAL (NORMAL); Platelet Morphology Comment NORMAL; RBC Morphology NOTED
[2024-05-22 07:42] LABS: Burr Cells 2+ (3-5) /OIF; Ovalocytes 1+ (5-14) /OIF; Rouleau PRESENT; Schistocytes 1+ (0-2) /OIF; Tear Drop Cells 1+ (0-2) /OIF
[2024-05-22 07:43] LABS: Toxic Vacuolation PRESENT
[2024-05-22] MEDS: Albuterol Sulfate (0.083%) 2.5 MG/3 ML VIAL.NEB INHALE ×3 (07:54→14:42)
[2024-05-22] MEDS: Digoxin 0.125 MG TABLET PO (08:12)
[2024-05-22] MEDS: dilTIAZem HCL CD 180 MG CAP.ER.24H PO ×2 (08:12→20:56)
[2024-05-22] MEDS: 0.9 % Sodium Chloride Flush 3 ML SYRINGE IVFLUSH ×3 (08:12→23:10)
[2024-05-22] MEDS: Furosemide 40 MG TABLET PO ×2 (08:12→17:28)
[2024-05-22] MEDS: vancomycin HCL 750 MG in 0.9 % Sodium Chloride 250 ML 265 MG IV ×2 (08:16→20:57)
[2024-05-22] MEDS: cefTRIAXone sodium 2 GM VIAL IVPUSH ×2 (10:35→22:59)
[2024-05-22] MEDS: dexAMETHasone sod phosphate 10 MG/ML VIAL 5 MG IVPUSH ×2 (17:27→22:59)
--- NOTE | 2024-05-22 18:19 | P.PNIM_ITS ---
Subjective Subjective Date of Service: 05/23/24 Interval History: Pleasantly confused, no acute events overnight. Review of Systems Unable to obtain due to mental status. Physical Exam 2 Vital Signs: Vital Signs: Last Vital Signs Temp 97.5 F 05/22/24 15:15 Pulse 79 05/22/24 15:15 Resp 16 05/22/24 15:15 BP 111/59 L 05/22/24 17:28 Pulse Ox 91 L 05/22/24 15:15 O2 Del Method Room Air 05/22/24 15:15 BMI result Body Mass Index 19.8 Const: Other: General awake alert, in no acute distress. Moist mucous membrane. Neck no JVD. CVS regular rate rhythm, Respiratory lungs clear to auscultation, no respiratory distress Gastrointestinal abdomen soft, non tender, bowel sounds audible, Extremities no edema. Left medial thigh mild erythema no induration, no fluctuation Neuro moving all 4 extremity, speech clear. poor insight Objective Data Active Medications Acetaminophen (Acetaminophen 325 Mg Tablet) 650 mg PO Q6H PRN PRN Reason: Pain, Mild (Pain Scale 1-3), fever or headache Albuterol Sulfate (Albuterol Sulfate (0.083%) 2.5 Mg/3 Ml Vial.Neb) 2.5 mg INHALE RQ4H WHILE AWAKE [facility] Last Admin: 05/22/24 14:42 Dose: 2.5 mg Documented By: THAIS Albuterol Sulfate (Albuterol Sulfate 90 Mcg 8 Gm Inhaler) 2 puff INHALE Q4H PRN PRN Reason: for wheezing Calcium Carbonate (Calcium Carbonate 750 Mg Tab.Chew) 750 mg PO Q4H PRN PRN Reason: Heartburn Ceftriaxone Sodium (Ceftriaxone Sodium 2 Gm Vial) 2 gm IVPUSH Q12H [facility] Last Admin: 05/22/24 10:35 Dose: 2 gm Documented By: SALENA Dexamethasone Sodium Phosphate (Dexamethasone Sod Phosphate 10 Mg/Ml Vial) 5 mg IVPUSH Q6H [facility] Last Admin: 05/22/24 17:27 Dose: 5 mg Documented By: SALENA Digoxin (Digoxin 0.125 Mg Tablet) 0.125 mg PO DAILY [facility]; Protocol Last Admin: 05/22/24 08:12 Dose: 0.125 mg Documented By: SALENA Diltiazem HCl (Diltiazem Hcl Cd 180 Mg Cap.Er.24h) 180 mg PO BID [facility]; Protocol Last Admin: 05/22/24 08:12 Dose: 180 mg Documented By: SALENA Furosemide (Furosemide 40 Mg Tablet) 40 mg PO BIDWM [facility]; Protocol Last Admin: 05/22/24 17:28 Dose: 40 mg Documented By: SALENA Vancomycin HCl 750 mg/ Sodium (Chloride) 265 mls @ 265 mls/hr IV Q12H [facility] Last Infusion: 05/22/24 09:20 Dose: Infused Documented By: SALENA Levothyroxine Sodium (Levothyroxine Sodium 50 Mcg Tablet) 50 mcg PO DAILY@0600 [facility] Last Admin: 05/22/24 05:09 Dose: 50 mcg Documented By: KRYSTIAN Lorazepam (Lorazepam 2 Mg/Ml Vial) 1 mg IVPUSH Q4H PRN PRN Reason: agitation Last Admin: 05/21/24 20:15 Dose: 1 mg Documented By: ASHLEY Magnesium Hydroxide (Milk Of Magnesia 30 Ml Oral.Susp) 30 ml PO DAILY PRN PRN Reason: Constipation Melatonin (Melatonin 3 Mg Tablet) 6 mg PO BEDTIME PRN PRN Reason: Insomnia Last Admin: 05/17/24 23:15 Dose: 6 mg Documented By: JILLIAN Ondansetron HCl (Ondansetron Hcl 4 Mg/2 Ml Vial) 4 mg IVPUSH Q8H PRN PRN Reason: Nausea and Vomiting Pharmacy Consult (Consult Rx Vancomycin Dosing) 1 each MISCELLANE DAILY PRN PRN Reason: Consult order Sodium Chloride (0.9 % Sodium Chloride Flush 3 Ml Syringe) 3 ml IVFLUSH QSHIFT [facility] Last Admin: 05/22/24 17:27 Dose: 3 ml Documented By: SALENA Labs 05/22/24 05:47 05/23/24 05:07 Labs: Laboratory Results - last 24 hr 05/21/24 05/22/24 18:57 05:47 MCV 91.4 MCH 32.2 MCHC 35.2 RDW 12.7 Plt Count 240 MPV 10.2 Immature Gran % (Auto) Cancelled Neut % (Auto) Cancelled Lymph % (Auto) Cancelled [place] % (Auto) Cancelled Eos % (Auto) Cancelled Baso % (Auto) Cancelled Lymph # (Auto) Cancelled [place] # (Auto) Cancelled Eos # (Auto) Cancelled Baso # (Auto) Cancelled Abs Immat Gran (auto) Cancelled Absolute Neuts (auto) Cancelled Absolute Nucleated RBC 0.020 H Nucleated RBC % (auto) 0.2 Neutrophils % (Manual) 68 Band Neutrophils % 8 H Lymphocytes % (Manual) 11 L Monocytes % (Manual) 11 Metamyelocytes % 2 Abs Neuts (Manual) 8.6 H Lymphocytes # (Manual) 1.2 Monocytes # (Manual) 1.2 Metamyelocytes # 0.2 Nucleated RBCs 1 H Toxic Vacuolation PRESENT Platelet Estimate NORMAL Plt Morphology Comment NORMAL RBC Morphology NOTED Tear Drop Cells 1+ (0-2) Ovalocytes 1+ (5-14) Cutler Cells 2+ (3-5) Acanthocytes (Spur) 2+ (3-5) Rouleaux PRESENT Schistocytes 1+ (0-2) Anion Gap 10 L Estim Creat Clear Calc 71.3 Estimated GFR > 60 Fasting Glucose 153 H Calcium 7.7 L Total Bilirubin 0.4 AST 31 ALT 60 H Alkaline Phosphatase 69 Total Protein 6.0 L Albumin 3.1 L Random Vancomycin 17.8 Microbiology Microbiology Results: Microbiology 05/17/24 00:13 Blood Culture - Final Blood - Venous No growth after 5 days. 05/17/24 00:06 Blood Culture - Final Blood - Venous No growth after 5 days. Assessment and Plan (1) Acute encephalopathy: Status: Acute Plan 84-year-old male with pertinent history of persistent atrial fibrillation on Xarelto, congestive heart failure with preserved ejection fraction, Alzheimer's dementia, hypothyroidism who was brought to the emergency department for evaluation of confusion. 1.Acute encephalopathy -no acute cause found, on empiric therapy with vanco/ceftriaxone (5) -MRI without acute findings specifically no indication of encephalitis -mentation improved -seen by Neurology they recommended EEG since no definite explanation was found, EEG done report pending. -seen by Physical therapy they recommend home with services 2. HFpEF -stable and well compensated, continue Lasix 40 mg b.i.d. follow BMP 3.Alzheimer's dementia Seems to be at baseline, pleasantly confused no aggressive behaviors, [place] catheter in place. 4.Persistent atrial fibrillation -continue digoxin and diltiazem -resume Xarelto 5.Hypothyroidism -continue levothyroxine Mechanical Full code Requires ongoing hospitalization for IV antibiotics to empirically treat for acute encephalopathy, awaiting EEG report and safe disposition. Quality Stroke Does the patient have a stroke diagnosis?: No VTE Prior VTE?: No VTE Risk Level:: Medical - moderate - high VTE Device Contraindication: N/A - Device Ordered VTE Drug Contraindication: Treatment Not Indicated
[2024-05-22 19:25] LABS: Vancomycin Random 17.9 mcg/mL (15-20)
[2024-05-23] VITALS (7 sets, daily range): BP systolic 103–137; BP diastolic 60–68; PULSE 64–81; RESP 14–18; TEMP 36.4–36.9; O2SAT 94–95
[2024-05-23] MEDS: Levothyroxine Sodium 50 MCG TABLET PO (05:04)
[2024-05-23] MEDS: dexAMETHasone sod phosphate 10 MG/ML VIAL 5 MG IVPUSH (05:04)
[2024-05-23 07:29] LABS: Creatinine Clr Calc Pharmacy 62.4; Estimated Glomerular Filt Rate > 60
[2024-05-23] MEDS: vancomycin HCL 750 MG in 0.9 % Sodium Chloride 250 ML 265 MG IV (08:09)
[2024-05-23] MEDS: 0.9 % Sodium Chloride Flush 3 ML SYRINGE IVFLUSH ×3 (08:11→20:49)
[2024-05-23] MEDS: Digoxin 0.125 MG TABLET PO (08:11)
[2024-05-23] MEDS: Rivaroxaban 20 MG TABLET PO (08:11)
[2024-05-23] MEDS: dilTIAZem HCL CD 180 MG CAP.ER.24H PO ×2 (08:11→20:43)
[2024-05-23] MEDS: Furosemide 40 MG TABLET PO ×2 (08:17→16:00)
[2024-05-23] MEDS: Potassium Chloride ER 20 MEQ TAB.ER.PRT 40 MEQ PO (08:30)
[2024-05-23] MEDS: levETIRAcetam in NaCl (iso-os) 1,000 MG/100 ML PIGGYBACK 400 MG IV (10:47)
--- NOTE | 2024-05-23 11:29 | MHC.CM.PN ---
Per no DC today. EEG + SZ activity. Patient ordered for loading dose of Keppra. DP Home with [facility] + [facility] via Private transport once medically cleared.
--- NOTE | 2024-05-23 13:29 | P.PNIM_ITS ---
Subjective Subjective Date of Service: 05/23/24 Interval History: Being followed for acute encephalopathy. Sitting comfortably on chair, unable to provide meaningful history, no acute events overnight, tolerating diet with no nausea, no vomiting, no abdominal pain. Review of Systems Unable to obtain due to mental status. Physical Exam 2 Vital Signs: Vital Signs: Last Vital Signs Temp 98.4 F 05/23/24 11:56 Pulse 65 05/23/24 11:56 Resp 16 05/23/24 11:56 BP 103/60 05/23/24 11:56 Pulse Ox 94 05/23/24 11:56 O2 Del Method Room Air 05/23/24 11:56 BMI result Body Mass Index 19.8 Const: Other: General awake alert, in no acute distress. Moist mucous membrane. Neck no JVD. CVS regular rate rhythm, Respiratory lungs clear to auscultation, no respiratory distress Gastrointestinal abdomen soft, non tender, bowel sounds audible, Extremities no edema. Left medial thigh mild erythema no induration, no fluctuation Neuro moving all 4 extremity, speech clear. poor insight Objective Data Active Medications Acetaminophen (Acetaminophen 325 Mg Tablet) 650 mg PO Q6H PRN PRN Reason: Pain, Mild (Pain Scale 1-3), fever or headache Albuterol Sulfate (Albuterol Sulfate (0.083%) 2.5 Mg/3 Ml Vial.Neb) 2.5 mg INHALE RQ4H WHILE AWAKE [facility]PL[facility] Last Admin: 05/23/24 11:55 Dose: Not Given Documented By: WALLACE Non-Admin Reason: See Note Albuterol Sulfate (Albuterol Sulfate 90 Mcg 8 Gm Inhaler) 2 puff INHALE Q4H PRN PRN Reason: for wheezing Calcium Carbonate (Calcium Carbonate 750 Mg Tab.Chew) 750 mg PO Q4H PRN PRN Reason: Heartburn Dexamethasone (Dexamethasone 4 Mg Tablet) 4 mg PO BIDWM [facility]PL[facility] Digoxin (Digoxin 0.125 Mg Tablet) 0.125 mg PO DAILY [facility]; Protocol Last Admin: 05/23/24 08:11 Dose: 0.125 mg Documented By: SERGIO Diltiazem HCl (Diltiazem Hcl Cd 180 Mg Cap.Er.24h) 180 mg PO BID [facility]; Protocol Last Admin: 05/23/24 08:11 Dose: 180 mg Documented By: SERGIO Furosemide (Furosemide 40 Mg Tablet) 40 mg PO BIDWM [facility]PL[facility]; Protocol Last Admin: 05/23/24 08:17 Dose: 40 mg Documented By: SERGIO Comments: Dr. Hampton notified of potassium with plan to replete. Levetiracetam (Levetiracetam 500 Mg Tablet) 500 mg PO BID [facility] Levothyroxine Sodium (Levothyroxine Sodium 50 Mcg Tablet) 50 mcg PO DAILY@0600 [facility] Last Admin: 05/23/24 05:04 Dose: 50 mcg Documented By: ZAIRA Lorazepam (Lorazepam 2 Mg/Ml Vial) 1 mg IVPUSH Q4H PRN PRN Reason: agitation Last Admin: 05/21/24 20:15 Dose: 1 mg Documented By: ASHLEY Magnesium Hydroxide (Milk Of Magnesia 30 Ml Oral.Susp) 30 ml PO DAILY PRN PRN Reason: Constipation Melatonin (Melatonin 3 Mg Tablet) 6 mg PO BEDTIME PRN PRN Reason: Insomnia Last Admin: 05/17/24 23:15 Dose: 6 mg Documented By: JILLIAN Ondansetron HCl (Ondansetron Hcl 4 Mg/2 Ml Vial) 4 mg IVPUSH Q8H PRN PRN Reason: Nausea and Vomiting Rivaroxaban (Rivaroxaban 20 Mg Tablet) 20 mg PO DAILY [facility] Last Admin: 05/23/24 08:11 Dose: 20 mg Documented By: SERGIO Sodium Chloride (0.9 % Sodium Chloride Flush 3 Ml Syringe) 3 ml IVFLUSH QSHIFT REPLACED BY [facility] Last Admin: 05/23/24 08:11 Dose: 3 ml Documented By: SERGIO Labs 05/22/24 05:47 05/23/24 05:07 Labs: Laboratory Results - last 24 hr 05/22/24 05/22/24 05/23/24 05:47 18:51 05:07 Smear Path Review SEE NOTE Hold Purple Top SEE NOTE Estim Creat Clear Calc 62.4 Estimated GFR > 60 Random Vancomycin 17.9 Assessment and Plan (1) Acute encephalopathy: Status: Acute (2) Dementia: Status: Acute (3) Mental status alteration: Status: Acute Plan 84-year-old male with pertinent history of persistent atrial fibrillation on Xarelto, congestive heart failure with preserved ejection fraction, Alzheimer's dementia, hypothyroidism who was brought to the emergency department for evaluation of confusion. 1.Acute encephalopathy -EEG showed right hemispheric epileptic discharges which could explain encephalopathy as per Neurology who recommend to load with Keppra and continue Keppra 500 mg twice a day Will DC IV antibiotics and wean IV steroids -MRI without acute findings specifically no indication of encephalitis -mentation improved -seen by Physical therapy they recommend home with services -call and informed about diagnosis of EEG 2. HFpEF -stable and well compensated, continue Lasix 40 mg b.i.d. follow BMP 3.Alzheimer's dementia Seems to be at baseline, pleasantly confused no aggressive behaviors, [place] catheter in place. 4.Persistent atrial fibrillation -continue digoxin and diltiazem -on Xarelto 5.Hypothyroidism -continue levothyroxine 6. Mild acute hypokalemia will replete and follow labs. Xarelto Full code Requires ongoing hospitalization for IV Keppra and close monitoring for acute seizure and safe disposition. Quality Stroke Does the patient have a stroke diagnosis?: No VTE Prior VTE?: No VTE Risk Level:: Medical - moderate - high VTE Device Contraindication: N/A - Device Ordered VTE Drug Contraindication: Treatment Not Indicated
[2024-05-23] MEDS: dexAMETHasone 4 MG TABLET PO (16:00)
[2024-05-23] MEDS: levETIRAcetam 500 MG TABLET PO (20:43)
[2024-05-24] MEDS: Levothyroxine Sodium 50 MCG TABLET PO (06:02)
[2024-05-24 07:37] LABS: Anion Gap 12 (12-20); Blood Urea Nitrogen 21 mg/dL (9-16); Calcium 7.7 mg/dL (8.4-10.2); Carbon Dioxide 31 mmol/L (22-29); Chloride 100 mmol/L (96-108); Creatinine Clr Calc Pharmacy 69.5; Estimated Glomerular Filt Rate > 60; Glucose Random 135 mg/dL (60-115); Potassium 3.5 mmol/L (3.3-5.1); Sodium 139 mmol/L (135-145)
[2024-05-24 07:52] VITALS: BP 123/58; PULSE 84; RESP 18; TEMP 36.2; O2SAT 94
[2024-05-24 07:54] VITALS: BP 123/58; PULSE 84; O2SAT 94
[2024-05-24] MEDS: Furosemide 40 MG TABLET PO (08:11)
[2024-05-24] MEDS: Digoxin 0.125 MG TABLET PO (08:11)
[2024-05-24] MEDS: Rivaroxaban 20 MG TABLET PO (08:12)
[2024-05-24] MEDS: dexAMETHasone 4 MG TABLET PO (08:12)
[2024-05-24] MEDS: dilTIAZem HCL CD 180 MG CAP.ER.24H PO (08:12)
[2024-05-24] MEDS: 0.9 % Sodium Chloride Flush 3 ML SYRINGE IVFLUSH (08:12)
[2024-05-24] MEDS: levETIRAcetam 500 MG TABLET PO (08:12)
--- NOTE | 2024-05-24 11:01 | PM.DS ---
DS: Providers Provider Date of Service: 05/24/24 Date of admission: 05/17/24 02:42 Date of discharge: 05/24/24 Primary care physician: Sinan Luis MD Consults: 05/19/24 10:27 Consult to Neurology Routine Consulting Provider: [facility] Reason for consultation: encephalopathy Has provider been notified: No DS: Diagnosis Discharge Diagnosis (1) Acute encephalopathy: Status: Acute (2) Dementia: Status: Acute (3) Mental status alteration: Status: Acute DS: Summary Hospital Course Hospital Course: History of present illness: Date of Service: 05/17/24 Chief Complaint: Altered mentation This is a 84-year-old male with pertinent history of persistent atrial fibrillation on Xarelto, congestive heart failure with preserved ejection fraction, Alzheimer's dementia, hypothyroidism who was brought to the emergency department for evaluation of confusion. Patient is oriented to self with the time of my evaluation but does not know why he is in the hospital. History obtained from ER provider and chart review. Tried calling the patient's but no answer. As per the who was present earlier, patient was drowsy and was sleeping 9 hours during the day which is unusual for him. He was found to be more confused on the day of presentation and hence he was brought to the ER. Unable to obtain review of systems. In the emergency department, WBC found to be 22 Hospital course: 84-year-old male with pertinent history of persistent atrial fibrillation on Xarelto, congestive heart failure with preserved ejection fraction, Alzheimer's dementia, hypothyroidism who was brought to the emergency department for evaluation of confusion and was admitted to medical floor with a diagnosis of acute encephalopathy, underwent extensive workup including MRI which showed no acute findings, underwent lumbar puncture, CSF studies showed no growth however patient was empirically treated with IV antibiotic and steroids subsequently EEG showed right hemispheric epileptic discharges, neurology recommended Keppra loading dose followed by Keppra 500 mg b.i.d. likely patient had acute epileptiform encephalopathy now resolved with the above treatment, patient seems to be pleasantly confused at baseline, he was evaluated by Physical therapy and on their recommendation patient is being discharged home with services , patient noted to have mild hypokalemia that was repleted and resolved. In regard to history of persistent atrial fibrillation/ HFpEF patient had no acute decompensation recommend to continue home dose of Lasix, digoxin, diltiazem and Xarelto. Alzheimer's dementia seems to be at baseline pleasantly confused, no new recommendations. Hypothyroidism -continue levothyroxine Time Attestation Discharge Coordination Time (in mins): 38 Quality: Safe Use of Opioids Does Pt have an Active Cancer Diagnosis on the Problem List?: No Quality: Stroke Does the patient have a stroke diagnosis?: No Physical Exam Vital Signs: Vital Signs: Last Vital Signs Temp 97.1 F 05/24/24 07:52 Pulse 84 05/24/24 07:54 Resp 18 05/24/24 07:52 BP 123/58 L 05/24/24 07:54 Pulse Ox 94 05/24/24 07:54 O2 Del Method Room Air 05/24/24 07:52 BMI result Body Mass Index 19.8 Const: Other: General awake alert, in no acute distress. Moist mucous membrane. Neck no JVD. CVS regular rate rhythm, Respiratory lungs clear to auscultation, no respiratory distress Gastrointestinal abdomen soft, non tender, bowel sounds audible, Extremities no edema. Neuro moving all 4 extremity, speech clear. poor insight DS: Data Data Completed and Pending Labs on day of discharge: Laboratory Results - last 24 hr 05/24/24 05:01 Hold Purple Top SEE NOTE Sodium 139 Potassium 3.5 Chloride 100 Carbon Dioxide 31 H Anion Gap 12 BUN 21 H Creatinine 0.79 Estim Creat Clear Calc 69.5 Estimated GFR > 60 Random Glucose 135 H Calcium 7.7 L Discharge Plan Discharge Anticipated Discharge Date/Time: 05/24/24 10:57 Patient Disposition: Home Health Service Discharge Diagnosis: Acute epileptic encephalopathy Referrals: [facility] [Other] - 1 Week (A referral has been sent to [facility] An Options manager pulmonary will contact you @ [phone] to discuss options available at home.) [facility] [Outside] - 1 Week Sinan Luis MD [Primary Care Provider] - 1 Week Discharge Medications: New levetiracetam 500 mg Tablet 500 mg PO BID Qty: 60 0RF Continued Xarelto 20 mg tablet 20 mg PO DAILY Qty: 90 8RF Rx Instructions: must administer with evening meal furosemide 40 mg tablet 40 mg PO BID Qty: 180 3RF digoxin 125 mcg (0.125 mg) tablet 125 mcg PO DAILY Qty: 90 8RF albuterol sulfate 90 mcg/actuation HFA aerosol inhaler 2 puff inhalation Q4-6H PRN (Reason: for wheezing) Qty: 8.5 8RF diltiazem HCl 180 mg tablet extended release 24 hr 180 mg PO BID 90 Days Qty: 180 3RF levothyroxine 50 mcg tablet 50 mcg PO DAILY@0600 Discharge Orders: Discharge Order (Routine); Ordered 05/24/24 Ordered By: Fidelina Hampton Diet: Advance to usual diet Activity on Discharge: As tolerated Stand Alone Forms: Patient Portal Discharge page Print Language: Uzbek Care Plan Goals: Acute episode of confusion resolved likely due to seizure started on seizure medication take Keppra 500 mg 1 tablet twice daily Do not stop Keppra abruptly without discussing with primary care physician/neurology Health Concerns: Persistent atrial fibrillation continue all home medication Plan of Treatment: Outpatient follow-up with primary care physician call for appointment. Outpatient follow-up with neurologist Dr. Irvin for close monitoring of new onset seizure, call for appointment Assessment: As above
--- NOTE | 2024-05-24 11:15 | P.F2F_ITS ---
Service Date Service Date: 05/24/24 Encounter Date of encounter: 05/24/24 Reasons for Services Signs and symptoms assessed: Dementia/new diagnosis of seizure Reason for longterm: medication management Reason for physical therapy: home safety and mobility Homebound: Leaving the home is medically contraindicated at this time without the asist of a device and/or another person due th the listed conditions above and below. Reason homebound: psychologically impaired / unsafe and weakness related to hospital stay Certification: Based on the above findings, I certify that this patient is confined to the home and needs intermittent longterm care, physical therapy and/or speech therapy, or continues to need occupational therapy. The patient is under my care, and I have initiated the establishment of the plan of care. The patient will be followed by a physician who will periodically review the plan of care. Time Spent With Patient Time: Total time managing care of this patient today ____ minutes.
--- NOTE | 2024-05-24 11:22 | MHC.CM.PN ---
IMM 05/24/24 Patient discharged to home with [facility]. His will provide transportation home.
== END 2024-05-24 11:56 | disposition home health service (06) | DRG 71 ==
LOC: HO.ED 05-17 02:39 → HO.EDOVER 05-17 02:45 → HO.S3 05-17 17:29
PROVIDERS: Hospitalist; Nurse Practitioner Acute Care; Physician Assistant Medical; Admitting Provider Student in an Organized Health Care Education/Training Program; Emergency Provider Emergency Medicine; PCP Internal Medicine; Visit Provider Hospitalist
DX: G93.45 Developmental and epileptic encephalopathy (principal); E87.1 Hypo-osmolality and hyponatremia; I50.32 Chronic diastolic (congestive) heart failure; I48.19 Other persistent atrial fibrillation; F17.210 Nicotine dependence, cigarettes, uncomplicated; Z71.6 Tobacco abuse counseling; F10.11 Alcohol abuse, in remission; J43.9 Emphysema, unspecified; E03.9 Hypothyroidism, unspecified; G30.9 Alzheimer's disease, unspecified; E87.6 Hypokalemia; F02.80 Dementia in other diseases classified elsewhere, unspecified severity, without behavioral disturbance, psychotic disturbance, mood disturbance, and anxiety; Z20.822 Contact with and (suspected) exposure to COVID-19; Z79.01 Long term (current) use of anticoagulants; Z79.890 Hormone replacement therapy; Z79.899 Other long term (current) drug therapy
CPT/HCPCS: 0241U; 36415; 62328; 70551; 71046; 71250; 74176; 80048; 80053; 80202; 81001; 82565; 82607; 82746; 82945; 82947; 83605; 83735; 84157; 84443; 84484; 85007; 85025; 85027; 85610; 86592; 87015; 87040; 87070; 87205; 87483; 89051; 93005; 94640; 94664; 95816; 97110; 97116; 97162; 97530; 99285; J0133; J0290; J0696; J1100; J1630; J1953; J2060; J3370; J8540

== ENCOUNTER → 2024-05-16 17:58 | Outpatient (BNV) | payer MEDICARE, OTHER, SELFPAY | PROVIDERS: Admitting Provider Student in an Organized Health Care Education/Training Program; Emergency Provider Emergency Medicine; PCP Internal Medicine; Visit Provider Internal Medicine Cardiovascular Disease | DX: I48.91 Unspecified atrial fibrillation (principal) | CPT/HCPCS: 93010 ==

== ENCOUNTER 2024-05-17 02:42 | Outpatient (BNV) | payer MEDICARE, OTHER, SELFPAY | END 2024-05-19 12:30 | PROVIDERS: Admitting Provider Student in an Organized Health Care Education/Training Program; Emergency Provider Emergency Medicine; PCP Internal Medicine; Visit Provider Radiology Diagnostic Radiology | DX: R90.82 White matter disease, unspecified (principal) | CPT/HCPCS: 70551 ==

== ENCOUNTER 2024-05-17 02:42 | Outpatient (BNV) | payer MEDICARE, OTHER, SELFPAY | END 2024-05-18 12:00 | PROVIDERS: Admitting Provider Student in an Organized Health Care Education/Training Program; Emergency Provider Emergency Medicine; PCP Internal Medicine; Visit Provider Physician Assistant Surgical | DX: G93.40 Encephalopathy, unspecified (principal) | CPT/HCPCS: 62328 ==

== ENCOUNTER → 2024-05-17 02:42 | Outpatient (BNV) | payer MEDICARE, OTHER, SELFPAY | PROVIDERS: Admitting Provider Student in an Organized Health Care Education/Training Program; Emergency Provider Emergency Medicine; PCP Internal Medicine; Visit Provider Psychiatry & Neurology Neurology | DX: G93.40 Encephalopathy, unspecified (principal) | CPT/HCPCS: 99222 ==

== ENCOUNTER → 2024-05-17 02:42 | Outpatient (BNV) | payer MEDICARE, OTHER, SELFPAY | PROVIDERS: Admitting Provider Student in an Organized Health Care Education/Training Program; Emergency Provider Emergency Medicine; Visit Provider Student in an Organized Health Care Education/Training Program | DX: G93.49 Other encephalopathy (principal); G30.9 Alzheimer's disease, unspecified; F02.80 Dementia in other diseases classified elsewhere, unspecified severity, without behavioral disturbance, psychotic disturbance, mood disturbance, and anxiety; R41.82 Altered mental status, unspecified | CPT/HCPCS: 99223; 99232; 99239; 99499; G0180 ==

== ENCOUNTER 2024-05-30 14:14 | Outpatient (AMB) | payer MEDICARE, OTHER, SELFPAY ==
--- NOTE | 2024-05-30 14:17 | A.OFFPC_ITS ---
Vital Signs 05/30/24 14:19 Height 6 ft 1 in Weight 135 lb BMI 17.8 BP 110/76 Blood Pressure Location Lt brachial Position Sitting Intake Visit Reasons: [facility] 05/24 Seizures, confusion Intake Note: Patient is here for hospital discharge follow up. Patient was discharged from [facility] [place] on [place]. 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: Present Accompanied by: Spouse Allergies No Known Allergies [No Known Allergies*] Allergy (Verified 05/30/24 14:18) Medication List - Last Reconciled 05/31/24 by Sinan Luis MD albuterol sulfate 90 mcg/actuation 2 puffs inhalation Q4-6H PRN digoxin 125 mcg PO DAILY diltiazem HCl ER 180 mg PO BID 90 days furosemide 40 mg PO BID levetiracetam 500 mg PO BID levothyroxine 50 mcg PO DAILY@0600 rivaroxaban (Xarelto) 20 mg PO DAILY Tobacco use date assessed: 05/30/24 Fall risk assessment: No Falls in past year Last assessed Fall Risk: 05/30/24 Dental Screening Dental Screen Date: 07/14/23 HPI [facility] 05/24 Seizures, confusion HPI Details admitted with idiopathic sz; w/u neg; sees neuro and rx begun [facility] Information Date of Discharge 05/24/24 Discharged From [facility] Interactive Contact Date (Reference documentation from this date) 05/25/24 [facility] Medical History Chronic heart failure with preserved ejection fraction (HFpEF) Non-rheumatic aortic stenosis Persistent atrial fibrillation Afib Hypothyroidism Surgical History H/O prostatectomy Family History Father Alzheimers disease Mental health disorder Mother Dementia Mental health disorder Social History Household Members: Spouse Housing: House Alcohol intake: former Patient Tobacco Use Status: Current everyday Tobacco user Tobacco use type: Cigarette Cigarette Packs Per Day: 0.5 Cigarettes Per Day: 5 Years Smoked: 45 +/- e-Cigarette/Vaping Use: Never Used Second Hand Smoke Exposure: Yes service: No Current occupational status: retired Cognitive needs: No Hearing needs: No Vision needs: Yes Questionnaire Thrive Questionnaire Date Thrive assessed: 05/17/24 Are you currently unemployed and looking for a job?: No JELANI-7 AMB Questionnaire JELANI-7 Date JELANI - 7 assessed: 07/14/23 Source: Developed by Drs. Frandy Li, Helena Mtz, Sadi De Guzman and colleagues, with an educational kell from [employer]. Review of Systems Const Denies chills, Denies headache(s) and Denies weight loss ENT Denies headache(s) Card Denies chest pain, Denies syncope, Denies irregular heart rhythm and Denies dyspnea Resp Denies chest congestion, Denies cough and Denies dyspnea GI Denies abdominal pain, Denies change in stool character, Denies nausea and Denies vomiting Musc Denies deformity and Denies joint swelling Neuro Denies syncope and Denies headache(s) Physical exam (Primary Care) Vital Signs: Last Vital Signs BP 110/76 05/30/24 14:19 BMI result Body Mass Index 17.8 Tobacco/Smoking Status: Tobacco use Status Tobacco use date assessed 05/30/24 05/30/24 14:25 Patient Tobacco Use Status Current everyday Tobacco 05/30/24 14:25 Tobacco use type Cigarette 05/30/24 14:25 e-Cigarette/Vaping Use Never Used 05/30/24 14:25 Thrive Assessment: Date of Thrive Assessment Date Thrive assessed 05/17/24 05/30/24 14:25 Const General: cooperative, comfortable, no acute distress and alert Neck Neck: Yes no lymphadenopathy Thyroid: Thyroid normal Resp Effort & Inspection: normal respiratory effort Auscultation: clear to auscultation bilaterally Percussion: percussion normal Cardio Jugular venous distension: no JVD Palpation: normal PMI Rate: regular rate Rhythm: regular rhythm Heart sounds: S1 normal heart sound present and S2 normal heart sound present GI Inspection: Yes normal to inspection Palpation (GI): No hepatosplenomegaly present Skin General skin exam: no rashes or lesions noted Extrem General: Yes no clubbing, cyanosis or edema Coding Level of Care Code Est Pt Level 3 (10385) Diagnoses Seizure R56.9 Assessment & Plan Assessment & Plan (1) Seizure: Code(s): R56.9 - Unspecified convulsions Category: Medical Plan: same rx; as per neuro Orders: Orders Digoxin 05/30/24 R78.89 - Finding of other specified substances, not normally found in blood Referrals Neurology Referral R56.9 - Unspecified convulsions
[2024-05-30 14:19] VITALS: BP 110/76; BMI 17.8
== END 2024-05-30 15:46 | disposition home or self-care (01) ==
PROVIDERS: PCP Internal Medicine; Visit Provider Internal Medicine
DX: R56.9 Unspecified convulsions (principal)

== ENCOUNTER → 2024-05-30 14:14 | Outpatient (BNVA) | payer MEDICARE, OTHER, SELFPAY | PROVIDERS: PCP Internal Medicine; Visit Provider Internal Medicine | DX: R56.9 Unspecified convulsions (principal) | CPT/HCPCS: 99212 ==

== ENCOUNTER 2024-09-19 08:12 | Outpatient (AMB) | payer MEDICARE, OTHER, SELFPAY ==
[2024-09-19 08:17] VITALS: BP 90/62; TEMP 36.3; BMI 17.7
--- NOTE | 2024-09-19 08:17 | A.OFFPC_ITS ---
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 Navigator: Present Accompanied by: Spouse Allergies No Known Allergies [No Known Allergies*] Allergy (Verified 09/19/24 08:17) Medication List - Last Reconciled 09/19/24 by Sinan Luis MD albuterol sulfate 90 mcg/actuation 2 puffs inhalation Q4-6H PRN digoxin 125 mcg PO DAILY diltiazem HCl ER 180 mg PO BID 90 days furosemide 40 mg PO BID levetiracetam 500 mg PO BID levothyroxine 50 mcg PO DAILY@0600 rivaroxaban (Xarelto) 20 mg PO DAILY Tobacco use date assessed: 09/19/24 Fall risk assessment: 1 Fall in past year Last assessed Fall Risk: 09/19/24 Dental Screening Dental Screen Date: 09/19/24 Did you have a dental visit in the last 12 months?: No Did you have a dental problem in the last 6 months where you did not have access to dental care?: No Was dental information given to patient?: No HPI Follow Up HPI Details HTN on Rx; hypothyroidism; cognitive decline; stable PFSH Medical History Chronic heart failure with preserved ejection fraction (HFpEF) Non-rheumatic aortic stenosis Persistent atrial fibrillation Afib Hypothyroidism Surgical History H/O prostatectomy Family History Father Alzheimers disease Mental health disorder Mother Dementia Mental health disorder Social History Household Members: Spouse Housing: House Alcohol intake: former Patient Tobacco Use Status: Current everyday Tobacco user Tobacco use type: Cigarette Cigarette Packs Per Day: 0.5 Cigarettes Per Day: 9 Years Smoked: 45 +/- e-Cigarette/Vaping Use: Never Used Second Hand Smoke Exposure: Yes service: No Current occupational status: retired Cognitive needs: No Hearing needs: No Vision needs: Yes Questionnaire PHQ-9 Over the last 2 weeks, how often have you been bothered by any of the following problems? 1. Little interest or pleasure in doing things: not at all 2. Feeling down, depressed, or hopeless: not at all 3. Trouble falling or staying asleep, or sleeping too much: not at all 4. Feeling tired or having little energy: not at all 5. Poor appetite or overeating: not at all 6. Feeling bad about yourself - or that you are a failure or have let yourself or your family down: not at all 7. Trouble concentrating on things, such as reading the newspaper or watching television: not at all 8. Moving or speaking so slowly that other people could have noticed. Or the opposite - being so fidgety or restless that you have been moving around a lot more than usual: not at all 9. Thoughts that you would be better off or of hurting yourself in some way: not at all Total score: 0 Depression Screening Interpretation: Negative Depression Screening Done: Yes 06632 - PHQ-9 Billing: Yes Source: Developed by Drs. rFandy Li, Helena Mtz, Sadi De Guzman and colleagues, with an educational kell from [employer]. Thrive Questionnaire Date Thrive assessed: 09/19/24 I am a: Patient What is your living situation today?: I have a steady place to live Within the past 12 months, did the food you bought not last and you didn't have the money to get more?: Never true Within the past 12 months, did you worry whether your food would run out before you got money to buy more?: Never true Do you have trouble paying for medicines?: No Do you have trouble getting transportation to medical appointments?: No Do you have trouble paying your heating and electricity bill?: No Do you have trouble taking care of your child, family member or friend?: No Do you have trouble with day-to-day activities such as bathing, preparing meals, shopping, managing finances, etc.?: No Are you currently unemployed and looking for a job?: No Are you interested in more education?: No Currently or been in a relationship where the following occur: No concerns reported THRIVE Score: 0 AUDIT C Alcohol Use Questionnaire (AUDIT-C) 3. How often do you have six or more drinks on one occasion?: Never Total Score: 0 JELANI-7 AMB Questionnaire JELANI-7 Date JELANI - 7 assessed: 09/19/24 Feeling nervous, anxious, or on edge: 0 = Not at all Not being able to stop or control worryin = Not at all Worrying too much about different things: 0 = Not at all Trouble relaxin = Not at all Being so restless that it is hard to sit still: 0 = Not at all Becoming easily annoyed or irritable: 0 = Not at all Feeling afraid as if something awful might happen: 0 = Not at all Total JELANI-7 score (0-4 normal; 5-9 mild; 10-14 moderate; 15-21 severe): 0 Source: Developed by Drs. Frandy Li, Helena Mtz, Sadi De Guzman and colleagues, with an educational kell from [employer]. Review of Systems Const Denies chills, Denies headache(s) and Denies weight loss ENT Denies headache(s) Card Denies chest pain, Denies syncope, Denies irregular heart rhythm and Denies dyspnea Resp Denies chest congestion, Denies cough and Denies dyspnea GI Denies abdominal pain, Denies change in stool character, Denies nausea and Denies vomiting Musc Denies deformity and Denies joint swelling Neuro Denies syncope and Denies headache(s) Physical exam (Primary Care) Vital Signs: Last Vital Signs Temp 97.3 F 09/19/24 08:17 BP 90/62 09/19/24 08:17 BMI result Body Mass Index 17.7 Tobacco/Smoking Status: Tobacco use Status Tobacco use date assessed 09/19/24 09/19/24 08:19 Patient Tobacco Use Status Current everyday Tobacco 09/19/24 08:19 Tobacco use type Cigarette 09/19/24 08:19 e-Cigarette/Vaping Use Never Used 09/19/24 08:19 PHQ-9: PHQ-9 Score PHQ-9: Total score 0 09/19/24 08:26 Depression Screening Interpretation: Negative Thrive Assessment: Date of Thrive Assessment Date Thrive assessed 09/19/24 09/19/24 08:19 Currently or been in a relationship where the following occur: No concerns reported Const General: cooperative, comfortable, no acute distress and alert Neck Neck: Yes no lymphadenopathy Thyroid: Thyroid normal Resp Effort & Inspection: normal respiratory effort Auscultation: clear to auscultation bilaterally Percussion: percussion normal Cardio Jugular venous distension: no JVD Palpation: normal PMI Rate: regular rate Rhythm: regular rhythm Heart sounds: S1 normal heart sound present and S2 normal heart sound present GI Inspection: Yes normal to inspection Palpation (GI): No hepatosplenomegaly present Skin General skin exam: no rashes or lesions noted Extrem General: Yes no clubbing, cyanosis or edema Coding Level of Care Code Est Pt Level 3 (04658) Diagnoses Hyperlipidemia E78.5 Additional Codes PHQ-9 - 70367 - PHQ-9 Billing: Yes ([id number]) Assessment & Plan Assessment & Plan (1) Hyperlipidemia: Code(s): E78.5 - Hyperlipidemia, unspecified Category: Medical Plan: stable; same rx Orders: Orders Lipid Panel Today Z13.220 - Encounter for screening for lipoid disorders Comprehensive [place]. Panel Fast Today Z13.9 - Encounter for screening, unspecified Thyroid Stimulating Hormone Today Z13.29 - Encounter for screening for other suspected endocrine disorder
== END 2024-09-19 08:40 | disposition home or self-care (01) ==
LOC: HO.HMCH 08:13
PROVIDERS: PCP Internal Medicine; Visit Provider Internal Medicine
DX: E78.5 Hyperlipidemia, unspecified (principal)

== ENCOUNTER → 2024-09-19 08:12 | Outpatient (BNVA) | payer MEDICARE, OTHER, SELFPAY | PROVIDERS: PCP Internal Medicine; Visit Provider Internal Medicine | DX: E78.5 Hyperlipidemia, unspecified (principal) | CPT/HCPCS: 96127; 99212 ==

== ENCOUNTER → 2025-03-07 09:49 | Outpatient (REF) | payer MEDICARE, OTHER, SELFPAY ==
--- NOTE | 2025-03-07 09:52 | CA_ITS ---
Transthoracic Echocardiogram Patient (Last, First, Middle): Balwinder Clay A Gender: M Date of : 1940 Age: 84 Procedure Date: 03/07/2025 Procedure Type: Transthoracic Echocardiogram Location: OP Height: 175.26 cm Weight: 60.78 kg BSA: 1.74 m2 Heart Rate: 60 bpm BP: 100 / 62 mmHg Assignment Clerk: SB Referring MD: Tunde Spring MD Symptoms: I35.0 - Nonrheumatic aortic (valve) stenosis Study Quality: Adequate ECG Rhythm: Atrial Fibrillation Conclusions: - The left ventricular systolic function is normal. The calculated ejection fraction is 62% by biplane method. - There is mild to moderate aortic valve stenosis. - There is moderate mitral annular calcification. There is mild mitral valve regurgitation. - There is mild tricuspid valve regurgitation. Findings Left Ventricle Normal left ventricular cavity size. The left ventricular systolic function is normal. The calculated ejection fraction is 62% by biplane method. There is no evidence of regional wall motion abnormalities. Diastolic function is indeterminate on the basis of available data. There is mild septal asymmetric hypertrophy. Right Ventricle Mildly increased right ventricular cavity size. There is mildly decreased right ventricular systolic function. Atria The left atrium is normal in size. The right atrium is mildly dilated. Aortic Valve There is severe calcification of the aortic valve. There is mild to moderate aortic valve stenosis. There is mild aortic valve regurgitation. Dimensionless index 0.41. Mitral Valve There is moderate mitral annular calcification. There is mild mitral valve regurgitation. There is no mitral valve stenosis. Pulmonic Valve The pulmonic valve is likely normal. Tricuspid Valve There is mild tricuspid valve regurgitation. There is no evidence of pulmonary hypertension. Great Vessels The asc aorta is normal in size. Venous The inferior vena cava is mildly dilated and collapses greater than 50% with inspiration. Pericardium/Pleural There is no evidence of pericardial effusion. Prior Study Comparison No significant change compared to prior study dated: 03/02/2024. Measurements 2D Linear Measurements IVSd: 1.06 0.6-0.9/0.6-1.0 cm LVIDd: 4.81 3.9-5.3/4.2-5.9 cm LVIDd Index: 2.76 2.4-3.2/2.2-3.1 cm/m2 LVIDs: 2.94 2.0-3.6 cm LVPWd: 0.85 0.7-1.1 cm Ao Root: 3.90 2.1-3.5 cm LA Diam: 4.10 2.7-3.8/3.0-4.0 cm LAIDs Index: 2.36 1.5-2.3 cm/m2 LV Mass: 199.30 67-162/88-224 g LV Mass Index: 114.54 43-95/49-115 g/m2 LVOT Diam: 2.30 3.0+(-)1.3 cm 2D Systolic Function EF 4C: 57.70 >55% EF 2C: 64.30 >55% EF BiP: 62.10 >55% Mitral Valve MV VTI: 0.41 MV Pk Garrett: 1.19 MV Mn Garrett: 0.56 MV Pk Grad: 6.00 MV Mn Grad: 2.00 MV Pk E: 1.27 E'Lateral: 8.75 E'Medial: 7.62 E/E' Med: 16.70 E/E' Lat: 14.50 MVA Continuity: 2.16 Aortic Valve AoV Pk Garrett: 2.34 AoV Mn Garrett: 1.58 AoV VTI: 0.49 AoV Pk Grad: 22.00 Aov Mn Grad: 12.00 PEEWEE Cont.VTI: 1.78 AI Pk Garrett: 3.32 AI [place]: 1.53 LVOT LVOT Pk Garrett: 0.96 LVOT Mn Garrett: 0.67 LVOT VTI: 0.21 LVOT Pk Grad: 4.00 LVOT Mn Grad: 2.00 LVOT Diam: 2.30 LVOT Area: 4.15 Diastolic Function MV Pk E: 1.27 E'Medial: 7.62 E/E' Med: 16.70 E' Laterial: 8.75 E/E' Lat: 14.50 Right Ventricle TAPSE (mm): 19.40 Tricuspid Valve TR Pk Garrett: 2.39 TR Pk Grad: 23.00 RA Press: 8.00 RVSP: 31.00 Great Vessels Aorta Ao Root-2D: 3.90 2.0-3.7 cm Ao Asc: 3.60 2.1-3.4 cm Updated in Other Vendor System with Status of Final Tunde Spring MD electronically signed on 03/07/2025 12:39:39 PM with status of Final
--- OUTSIDE RECORDS SUMMARY | 2025-03-07 11:00 | XMS_ITS | Patient Health Record ---
Author Organization [facility] Address [address] [place] [address] Care Team Providers Care Automobile Body Customizer Name Role Phone Funmilayo(inactive) Kwame KING Primary Care Provider U Frandy Rice Unavailable [phone] Reason For Referral No Information Medications Medication SIG (Take, Route, Frequency, Duration) Notes Start Date End Date Status Xarelto 20 MG 1 tablet with food Orally Once a day Active dilTIAZem HCl ER 180 MG 1 capsule on an empty stomach in the morning Orally Twice a day Active Levothyroxine Sodium 50 MCG 1 tablet on an empty stomach in the morning Orally Once a day Active Furosemide 40 MG 1 tablet Orally Twic e a day Active Digoxin 125 MCG 1 tablet Orally Once a day Active Immunizations Vaccine Route Administration Date Status Comme nts Flu vaccine no Preserv 3 and > Unknown 05/07/2016 Admin istered Social History Tobacco Use: Social History Observation Description Date Details (start date - stop date) Current Smoker NA - NA Tobacco Use/Smoking Question Answer Notes Patient is a current smoker How many cigarettes a day do you smoke? 6-10 How soon after you wake up d o you smoke your first cigarette? 31-60 minutes Are you interested in quitting? Thinking about q uitting Alcohol Screen Question Answer Notes Did you have a drink contain ing alcohol in the past year? Yes How often did you have a dri nk containing alcohol in the past year? Monthly or less (1 point) How many drinks did you have on a typical day when you were drinking in the past year? 1 or 2 drinks (0 point) How often did you have 6 or more drinks on one occasion in the past year? Never (0 point) Points 1 Interpretation Negative Section Notes: Smokes 1/2 ppd; no sig alcoh ol Problems Problem Type SNOMED Code ICD Code Onset Dates Problem Status W/U Status Risk Notes Problem 450396094 Encounter for screening for malignant neoplasm of colon (Z12.11) Active confirmed Problem 494012826 Long-term (curre nt) use of anticoagulants (Z79.01) Active confirmed Plan Of Treatment Future Test Test Name Order Date COLONOSCOPY 05/01/2017 Insurance Providers Payer Name Payer Address Payer Phone Subscriber Number Group Number Insured Name Patient Relationship to Insured Coverage Start Date Coverage End Date MEDICARE OF [place] [address] [place] [address] [id number] GUERRERO MENA Self - patient is the insured [facility] INDEMNITY [address] [place] [address] [id number] GUERRERO MENA Self - patient is the insured Medical (General) History Medical History History ICD Code Atrial fibrillation Denies [place],CVA,Lung disease,renal disease Hypothyroidism Diet-controlled diabetes Lower leg edema/? of CHF--he was hospitalized in March of 2016 in the ICU, during which time he was intubated for what appears to be some issues with fluid overload--a CAT scan showed some pleural effusions and a small amount of ascites--he had a normal liver profile in September of 2016 Colonoscopy 1994 and 2003--h yperplastic polyp, diverticulosis, internal hemorrhoids
--- OUTSIDE RECORDS SUMMARY | 2025-03-07 11:00 | XMS_ITS | Patient Health Record ---
Author Organization [facility] [place] Address [address] [facility] [place] [address] Care Team Providers Care State Tested Nursing Assistant Name Role Phone Kwame Mello MD Primary Care Provider Sammy Escalona Unavailable [phone] Reason For Referral No Information Medications Medication SIG (Take, Route, Frequency, Duration) Notes Start Date End Date Status ProAir HFA Active Vitamin B-1 Active Daily Bharati Active Digoxin Active dilTIAZem HCl ER Beads Active Amiodarone HCl Activ e Xarelto Not-Taking Folic Acid Active Extra Depth Orthopedic Shoes (1 Pair) with Customized Heat Molded Multidensity Innersoles (3 Pair) as directed Dx: NIDDM/Polyneuropathy (E11.42), Hammertoe Foot Deformity (M20.41,M20.42), Preulcerative Skin Lesion(s) (L85.1 05/06/2016 Active dilTIAZem HCl ER 120 MG Orally Active Lisinopril Active Multivitamin Active Furosemide 40 MG Orally Act paril Thiamine Mononitrate Not-Taking Rivaroxaban 20 MG Orally No t-Taking Immunizations Vaccine Route Administration Date Status Comme nts Influenza Unknown 04/05/2016 Administered Pneumococcal Unknown 04/05/2016 Administered Problems Problem Type SNOMED Code ICD Code Onset Dates Problem Status W/U Status Risk Notes Problem Polyneuropathy due to type 2 diabetes mellitus (778944573) Type 2 diabetes mellitus with diabetic polyneuropathy (E11.42) Active confirmed Plan Of Treatment Pending Test Test Name Order Date [id number] NAIL, 6 OR MORE 05/06/2016 [id number] NAIL, 6 OR MORE 09/05/2016 [id number] SKIN LESION 09/05/2016 [id number] SKIN LESION 05/06/2016 Insurance Providers Payer Name Payer Address Payer Phone Subscriber Number Group Number Insured Name Patient Relationship to Insured Coverage Start Date Coverage End Date Medicare National Govt Sv[employer] [address] [place] [address] [id number] Balwinder Clay Self - patient is the insured [employer] [facility]) [address] [place] [address] [phone] [id number] Balwinder Clay Self - patient is the insured Medical (General) History Medical History History ICD Code type II diabetes High blood pressure Measles Chicken pox Hospitalization History Reason Date(Month/Year) Patient was in [facility] [place] for afib. 03/2016
== END ==
LOC: HO.CARD 09:49
PROVIDERS: PCP Internal Medicine; Visit Provider Internal Medicine
DX: I35.0 Nonrheumatic aortic (valve) stenosis (principal)
CPT/HCPCS: 93306

== ENCOUNTER → 2025-03-07 09:52 | Outpatient (BNV) | payer MEDICARE, OTHER, SELFPAY | PROVIDERS: PCP Internal Medicine; Visit Provider Internal Medicine | DX: I35.0 Nonrheumatic aortic (valve) stenosis (principal); I34.81 Nonrheumatic mitral (valve) annulus calcification; I36.1 Nonrheumatic tricuspid (valve) insufficiency | CPT/HCPCS: 93306 ==

== ENCOUNTER 2025-03-11 08:23 | Outpatient (REF) | payer MEDICARE, OTHER, SELFPAY ==
--- OUTSIDE RECORDS SUMMARY | 2025-03-11 08:28 | XMS_ITS | Patient Health Record ---
Author Organization [facility] Address [address] [facility] [place] [address] Care Team Providers Care Custom Shoemaker Name Role Phone Kwame Mello MD Primary Care Provider Sammy Escalona Unavailable [phone] Reason For Referral No Information Medications Medication [...] Multivitamin Active Furosemide 40 MG Orally Act april Thiamine Mononitrate Not-Taking Rivaroxaban 20 MG Orally No t-Taking Immunizations Vaccine Route Administration Date Status Comme nts Influenza Unknown 04/05/2016 Administered Pneumococcal Unknown 04/05/2016 Administered Problems Problem Type SNOMED Code ICD Code Onset Dates Problem Status W/U Status Risk Notes Problem Polyneuropathy due to type 2 diabetes mellitus (523993242) Type 2 diabetes mellitus with diabetic polyneuropathy (E11.42) Active confirmed Plan Of Treatment Pending Test Test Name Order Date [id number] NAIL, 6 OR MORE 05/06/2016 [id number] NAIL, 6 OR MORE 09/05/2016 [id number] SKIN LESION 09/05/2016 [id number] SKIN LESION 05/06/2016 Insurance Providers Payer Name Payer Address Payer Phone Subscriber Number Group Number Insured Name Patient Relationship to Insured Coverage Start Date Coverage End Date Medicare National Govt Svcs Inc [address] [place] [address] [id number] Balwinder Clay Self - patient is the insured [employer] [facility] [address] [place] [address] [id number] Balwinder Clay Self - patient is the insured Medical (General) History Medical History History ICD Code type II diabetes High blood pressure Measles Chicken pox Hospitalization History Reason Date(Month/Year) Patient was in [facility] for 10 days for afib. 03/2016
--- OUTSIDE RECORDS SUMMARY | 2025-03-11 08:28 | XMS_ITS | Patient Health Record ---
Author Organization [facility] Address [address] [place] [address] Care Team Providers Care [place] Law Clerk Name Role Phone Funmilayo(inactive) Kwame KING Primary Care Provider U Frandy Rice Unavailable [phone] Reason For Referral No Information Medications Medication [...] Problem Status W/U Status Risk Notes Problem 253603698 Encounter for screening for malignant neoplasm of colon (Z12.11) Active confirmed Problem 274171934 Long-term (curre nt) use of anticoagulants (Z79.01) Active confirmed Plan Of Treatment Future Test Test Name Order Date COLONOSCOPY 05/01/2017 Insurance Providers Payer Name Payer Address Payer Phone Subscriber Number Group Number Insured Name Patient Relationship to Insured Coverage Start Date Coverage End Date [place]ARE OF [place] [address] [place] [address] [id number] GUERRERO MENA Self - patient is the insured [facility] INDEMNITY [address] [place] [address] [id number] GUERRERO MENA Self - patient is the insured Medical (General) History Medical History History ICD Code Atrial fibrillation Denies [place],CVA,Lung disease,renal disease Hypothyroidism Diet-controlled diabetes Lower leg [...]
[2025-03-11 09:25] LABS: Hematocrit 37.1 % (42.0-52.0); Hemoglobin 12.9 g/dl (14.0-18.0); Mean Corpuscular HGB Conc 34.8 g/dl (31.0-36.0); Mean Corpuscular Hemoglobin 33.1 pg (27.0-33.0); Mean Corpuscular Volume 95.1 fL (80.0-98.0); NRBC Abs Auto 0.000 X10*3/uL (0.0-0.012); NRBC Pct Auto 0.0 /100WBC (0.0-0.2); Platelet Count 236 X10*3/uL (160-400); Red Blood Count 3.90 X10*6/uL (4.60-5.80); White Blood Count 8.7 X10*3/uL (4.8-10.8)
[2025-03-11 10:51] LABS: Alanine Aminotransferase 14 U/L (0-40); Albumin Level 4.5 g/dL (3.5-5.0); Alkaline Phosphatase 102 U/L (39-117); Anion Gap 12 (12-20); Aspartate Amino Transferase 25 U/L (5-37); Blood Urea Nitrogen 18 mg/dL (9-16); Calcium 9.0 mg/dL (8.4-10.2); Carbon Dioxide 32 mmol/L (22-29); Chloride 104 mmol/L (96-108); Cholesterol 193 mg/dL (<200); Digoxin 0.9 ng/mL (0.8-2.0); Estimated Glomerular Filt Rate > 60; HDL Cholesterol 65 mg/dL (>40); Potassium 4.5 mmol/L (3.3-5.1); Sodium 143 mmol/L (135-145); Total Protein 7.2 g/dL (6.5-8.0); Triglycerides 68 mg/dL (<150)
[2025-03-11 11:12] LABS: Thyroid Stimulating Hormone 2.96 uIU/mL (0.32-4.0)
== END 2025-03-11 08:24 | disposition home or self-care (01) ==
LOC: HO.LAB 08:23
PROVIDERS: Internal Medicine; PCP Internal Medicine; Visit Provider Internal Medicine
DX: Z13.29 Encounter for screening for other suspected endocrine disorder (principal); Z13.220 Encounter for screening for lipoid disorders; Z51.81 Encounter for therapeutic drug level monitoring; I50.32 Chronic diastolic (congestive) heart failure; R78.89 Finding of other specified substances, not normally found in blood
CPT/HCPCS: 36415; 80053; 80061; 80162; 84443; 85027

== ENCOUNTER 2025-03-13 08:40 | Outpatient (AMB) | payer MEDICARE, OTHER, SELFPAY ==
--- NOTE | 2025-03-13 08:45 | MHC.PC.OV ---
Vital Signs 03/13/25 08:47 Height 6 ft 1 in Weight 131 lb 6 oz BMI 17.3 BP 102/54 L Blood Pressure Location Lt brachial Position Sitting Pulse Source Pulse Oximeter Oxygen Delivery Method Room Air Intake Visit Reasons: Transfer Care from Dr. Luis 6mth f/u Enterprise Resource Planning Consultant Required: No Accompanied by: Spouse Allergies No Known Allergies (No Known Allergies*) Allergy (Verified 03/13/25 09:07) Medication List - Last Reconciled 03/13/25 by Trini Bellamy MD albuterol sulfate 90 mcg/actuation 2 puffs inhalation Q4-6H PRN digoxin 125 mcg PO DAILY diltiazem HCl ER 180 mg PO BID 90 days furosemide 40 mg PO BID levetiracetam 500 mg PO BID levothyroxine 50 mcg PO DAILY rivaroxaban (Xarelto) 20 mg PO DAILY Tobacco use date assessed: 03/13/25 Fall risk assessment: No Falls in past year Last assessed Fall Risk: 03/13/25 Dental Screening Dental Screen Date: 03/13/25 Did you have a dental visit in the last 12 months?: Yes Did you have a dental problem in the last 6 months where you did not have access to dental care?: No Was dental information given to patient?: No HPI HPI Comments History of Present Illness Details The patient is an 84-year-old male presenting for transfer of care from a [facility] physician. He has a history of persistent atrial fibrillation and aortic valve stenosis, which have been managed with chronic anticoagulation therapy. Additionally, he has a history of seizures, although he has not experienced any seizures in the past year. The patient also suffers from mild recurrent major depressive disorder, with a PHQ-9 score of 5, indicating mild depression. He has chronic heart failure with preserved ejection fraction, which is being monitored regularly. He has been diagnosed with hypothyroidism, but his thyroid-stimulating hormone (TSH) levels are currently normal. The patient also has dementia, with orientation to person and place but not to time. He has a history of mild anemia, which has shown improvement over time. His cholesterol levels are well controlled, and his blood pressure is also well managed. The patient is a smoker, consuming about half a pack of cigarettes per day, and is underweight with a BMI of 17. He walks with a cane for gait stability and is accompanied by his , who acts as his blender/braze applicator. [facility] Medical History Chronic heart failure with preserved ejection fraction (HFpEF) Non-rheumatic aortic stenosis Persistent atrial fibrillation Afib Hypothyroidism Family History Father Alzheimers disease Mental health disorder Mother Dementia Mental health disorder Social History Household Members: Spouse Housing: House Alcohol intake: former Patient Tobacco Use Status: Current everyday Tobacco user Tobacco use type: Cigarette Cigarette Packs Per Day: 0.5 Cigarettes Per Day: 9 Years Smoked: 45 +/- e-Cigarette/Vaping Use: Never Used Second Hand Smoke Exposure: Yes service: No Current occupational status: retired Cognitive needs: No Hearing needs: No Vision needs: Yes Questionnaire PHQ-9 Over the last 2 weeks, how often have you been bothered by any of the following problems? 1. Little interest or pleasure in doing things: not at all 2. Feeling down, depressed, or hopeless: not at all 3. Trouble falling or staying asleep, or sleeping too much: not at all 4. Feeling tired or having little energy: several days 5. Poor appetite or overeating: several days 6. Feeling bad about yourself - or that you are a failure or have let yourself or your family down: not at all 7. Trouble concentrating on things, such as reading the newspaper or watching television: nearly every day 8. Moving or speaking so slowly that other people could have noticed. Or the opposite - being so fidgety or restless that you have been moving around a lot more than usual: not at all 9. Thoughts that you would be better off or of hurting yourself in some way: not at all Total score: 5 Depression Screening Interpretation: Positive Depression Screening Follow-up: Existing condition and Follow-up Visit Requested Depression Screening Done: Yes 86977 - PHQ-9 Billing: Yes Source: Developed by Drs. Frandy Li, Helena Mtz, Sadi De Guzman and colleagues, with an educational kell from [employer]. Thrive Questionnaire Date Thrive assessed: 03/06/25 I am a: Patient What is your living situation today?: I have a steady place to live Within the past 12 months, did the food you bought not last and you didn't have the money to get more?: Never true Within the past 12 months, did you worry whether your food would run out before you got money to buy more?: Never true Do you have trouble paying for medicines?: No Do you have trouble getting transportation to medical appointments?: No Do you have trouble paying your heating and electricity bill?: No Do you have trouble taking care of your child, family member or friend?: No Do you have trouble with day-to-day activities such as bathing, preparing meals, shopping, managing finances, etc.?: Yes Are you currently unemployed and looking for a job?: No Are you interested in more education?: No Please select the resources that you would like help with: None Currently or been in a relationship where the following occur: No concerns reported THRIVE Score: 0 AUDIT C Alcohol Use Questionnaire (AUDIT-C) 1. How often do you have a drink containing alcohol?: Never Total Score: 0 Score Reviewed/Action Taken: No JELANI-7 AMB Questionnaire JELANI-7 Date JELANI - 7 assessed: 09/19/24 Feeling nervous, anxious, or on edge: 1 = Several days Not being able to stop or control worryin = Several days Worrying too much about different things: 1 = Several days Trouble relaxin = Several days Being so restless that it is hard to sit still: 1 = Several days Becoming easily annoyed or irritable: 1 = Several days Feeling afraid as if something awful might happen: 0 = Not at all Total JELANI-7 score (0-4 normal; 5-9 mild; 10-14 moderate; 15-21 severe): 6 Source: Developed by Drs. Frandy Li, Helena Mtz, Sadi De Guzman and colleagues, with an educational kell from [employer]. JELANI-7 Assessment Billing JELANI-7 Assessment Tool: JELANI-7 Assessment 17219 Review of Systems Const All systems reviewed & are unremarkable except as noted in HPI and below Card Denies chest pain at rest, Denies chest pain with activity, Denies edema, Denies irregular heart rhythm, Denies claudication, Denies dyspnea, Denies dyspnea on exertion, Denies orthopnea, Denies paroxysmal nocturnal dyspnea and Denies slow heart rate Resp Denies cough, Denies dyspnea and Denies dyspnea on exertion GI Denies abdominal pain, Denies change in bowel habits, Denies excessive flatus, Denies nausea and Denies vomiting Physical exam (Primary Care) Vital Signs: Last Vital Signs BP 102/54 L 03/13/25 08:47 Oxygen Delivery Method Room Air 03/13/25 08:47 BMI result Body Mass Index 17.3 BMI Assessment/Plan discussion: Low BMI Low, Plan discussed: lifestyle, increase calorie intake and dietary Tobacco/Smoking Status: Tobacco use Status Tobacco use date assessed 03/13/25 03/13/25 08:50 Patient Tobacco Use Status Current everyday Tobacco 03/13/25 08:50 Tobacco use type Cigarette 03/13/25 08:50 e-Cigarette/Vaping Use Never Used 03/13/25 08:50 Are you ready to quit: No Tobacco cessation counseling provided: No PHQ-9: PHQ-9 Score PHQ-9: Total score 5 03/13/25 08:54 Depression Screening Interpretation: Positive Depression Screening Follow-up: Existing condition and Follow-up Visit Requested Thrive Assessment: Date of Thrive Assessment Date Thrive assessed 03/06/25 03/13/25 08:50 Currently or been in a relationship where the following occur: No concerns reported Const Orientation/consciousness: oriented to person and oriented to place Limitations: ambulation with cane Resp Effort & Inspection: normal respiratory effort Auscultation: clear to auscultation bilaterally Cardio Jugular venous distension: no JVD Rate: regular rate Rhythm: regular rhythm Heart sounds: S1 normal heart sound present and S2 normal heart sound present Neuro General: oriented to person and oriented to place Extrem General: Yes full ROM Coding Level of Care Code Est Pt Level 4 (92795) Complex EM visit Add On G2211 Diagnoses Persistent atrial fibrillation I48.19 Chronic heart failure with preserved ejection fraction (HFpEF) I50.32 Non-rheumatic aortic stenosis I35.0 Hypothyroidism due to medication E03.2 Hypothyroidism type: due to medication Dementia F03.90 Seizure R56.9 Additional Codes JELANI-7 Assessment Billing - JELANI-7 Assessment Tool: JELANI-7 Assessment 51963 ([id number]) PHQ-9 - 12706 - PHQ-9 Billing: Yes ([id number]) Time Spent (min) 25 Assessment & Plan Assessment & Plan (1) Persistent atrial fibrillation: Code(s): I48.19 - Other persistent atrial fibrillation Category: Medical (2) Chronic heart failure with preserved ejection fraction (HFpEF): Code(s): I50.32 - Chronic diastolic (congestive) heart failure Category: Medical (3) Non-rheumatic aortic stenosis: Code(s): I35.0 - Nonrheumatic aortic (valve) stenosis Category: Medical (4) Hypothyroidism: Code(s): E03.9 - Hypothyroidism, unspecified Category: Medical Qualifiers: Hypothyroidism type: due to medication Qualified Code(s): E03.2 - Hypothyroidism due to medicaments and other exogenous substances (5) Dementia: Code(s): F03.90 - Unspecified dementia, unspecified severity, without behavioral disturbance, psychotic disturbance, mood disturbance, and anxiety Category: Medical (6) Seizure: Code(s): R56.9 - Unspecified convulsions Category: Medical Plan Plan 1. Other persistent atrial fibrillation I48.19 HCC 96 The patient is on chronic anticoagulation therapy to manage atrial fibrillation. 2. Nonrheumatic aortic (valve) stenosis I35.0 The condition is being monitored as part of his cardiac care. 3. Epilepsy, unspecified, not intractable, without status epilepticus G40.909 HCC 79 The patient has not experienced any seizures in the past year, indicating stability in his condition. 4. Major depressive disorder, recurrent, mild F33.0 HCC 59 The patient's depression is mild with a PHQ-9 score of 5, and it is being monitored. 5. Chronic diastolic (congestive) heart failure I50.32 HCC 85 The heart failure is being managed with regular monitoring and control of contributing factors. 6. Hypothyroidism The patient's TSH levels are normal, indicating effective management of hypothyroidism. 7. Unspecified dementia, unspecified severity, without behavioral disturbance, psychotic disturbance, mood disturbance, and anxiety F03.90 HCC 52 The patient is oriented to person and place but not to time, and is under the care of his . Orders: Orders Thyroid Stimulating Hormone 4 Months E03.2 - Hypothyroidism due to medicaments and other exogenous substances Complete Blood Count Auto Diff 4 Months D64.9 - Anemia, unspecified, I48.19 - Other persistent atrial fibrillation NT-proBNP 4 Months I50.32 - Chronic diastolic (congestive) heart failure Comprehensive [place]. Panel Fast 4 Months I50.32 - Chronic diastolic (congestive) heart failure Lipid Panel 4 Months E78.5 - Hyperlipidemia, unspecified
[2025-03-13 08:47] VITALS: BP 102/54; BMI 17.3
--- OUTSIDE RECORDS SUMMARY | 2025-03-13 09:40 | XMS_ITS | Patient Health Record ---
Author Organization [facility] [place] Address [address] [place] [address] Care Team Providers Care Manager Community Relations Name Role Phone Kwame Mello MD Primary Care Provider Sammy Escalona Unavailable [phone] Reason For Referral No Information Medications Medication [...] Polyneuropathy due to type 2 diabetes mellitus (738259606) Type 2 diabetes mellitus with diabetic polyneuropathy (E11.42) Active confirmed Plan Of Treatment Pending Test Test Name Order Date [id number] NAIL, 6 OR MORE 05/06/2016 [id number] NAIL, 6 OR MORE 09/05/2016 [id number] SKIN LESION 09/05/2016 [id number] SKIN LESION 05/06/2016 Insurance Providers Payer Name Payer Address Payer Phone Subscriber Number Group Number Insured Name Patient Relationship to Insured Coverage Start Date Coverage End Date Medicare National Govt Svcs Inc [address] [place] [address] [id number] Balwinder Clay Self - patient is the insured [employer] ([facility]) [address] [place] [address] [id number] Balwinder Clay Self - patient is the insured Medical (General) History Medical History History ICD Code type II diabetes High blood pressure Measles Chicken pox Hospitalization History Reason Date(Month/Year) Patient was in [facility] for 10 days for afib. 03/2016
--- OUTSIDE RECORDS SUMMARY | 2025-03-13 09:41 | XMS_ITS | Patient Health Record ---
Author Organization [facility] Address [address] [place] [address] Care Team Providers Care Follow Up Manager Name Role Phone Funmilayo(inactive) Kwame KING Primary Care Provider U Frandy Rice Unavailable [phone] Reason For Referral No Information Medications Medication [...] Problem Status W/U Status Risk Notes Problem [id number] Encounter for screening for malignant neoplasm of colon (Z12.11) Active confirmed Problem [id number] Long-term (curre nt) use of anticoagulants (Z79.01) Active confirmed Plan Of Treatment Future Test Test Name Order Date COLONOSCOPY 05/01/2017 Insurance Providers Payer Name Payer Address Payer Phone Subscriber Number Group Number Insured Name Patient Relationship to Insured Coverage Start Date Coverage End Date MEDICARE OF [place] [address] [place] [address] [id number] GUERRERO MENA Self - patient is the insured [facility] [address] [place] [address] [phone] [id number] GUERRERO MENA Self - patient is the insured Medical (General) History Medical History History ICD Code Atrial fibrillation Denies [place],CVA,Lung disease,renal disease Hypothyroidism Diet-controlled diabetes Lower leg [...]
== END 2025-03-13 09:41 | disposition home or self-care (01) ==
LOC: HO.HMCH 08:41
PROVIDERS: PCP Internal Medicine; Visit Provider Internal Medicine
DX: I48.19 Other persistent atrial fibrillation (principal); I50.32 Chronic diastolic (congestive) heart failure; F03.90 Unspecified dementia, unspecified severity, without behavioral disturbance, psychotic disturbance, mood disturbance, and anxiety; R56.9 Unspecified convulsions; I35.0 Nonrheumatic aortic (valve) stenosis; E03.2 Hypothyroidism due to medicaments and other exogenous substances

== ENCOUNTER → 2025-03-13 08:40 | Outpatient (BNVA) | payer MEDICARE, OTHER, SELFPAY | PROVIDERS: PCP Internal Medicine; Visit Provider Internal Medicine | DX: I35.0 Nonrheumatic aortic (valve) stenosis (principal); I48.19 Other persistent atrial fibrillation; E03.9 Hypothyroidism, unspecified; D64.9 Anemia, unspecified; I50.32 Chronic diastolic (congestive) heart failure; E03.2 Hypothyroidism due to medicaments and other exogenous substances; F03.90 Unspecified dementia, unspecified severity, without behavioral disturbance, psychotic disturbance, mood disturbance, and anxiety; Z87.891 Personal history of nicotine dependence; G40.909 Epilepsy, unspecified, not intractable, without status epilepticus; F33.0 Major depressive disorder, recurrent, mild | CPT/HCPCS: 96127; 99212 ==

== ENCOUNTER 2025-03-14 07:56 | Outpatient (AMB) | payer MEDICARE, OTHER, SELFPAY ==
--- OUTSIDE RECORDS SUMMARY | 2025-03-14 08:04 | XMS_ITS | Patient Health Record ---
Author Organization [facility] Address [address] [place] [address] Care Team Providers Care Apprenticeship Training Representative Name Role Phone Funmilayo(inactive) Kwame KING Primary Care Provider U Frandy Rice Unavailable [phone] Reason For Referral No Information Medications Medication [...] Problem Status W/U Status Risk Notes Problem [id number] Encounter for screening for malignant neoplasm of colon (Z12.11) Active confirmed Problem [id number] Long-term (curre nt) use of anticoagulants (Z79.01) Active confirmed Plan Of Treatment Future Test Test Name Order Date COLONOSCOPY 05/01/2017 Insurance Providers Payer Name Payer Address Payer Phone Subscriber Number Group Number Insured Name Patient Relationship to Insured Coverage Start Date Coverage End Date [place]ARE [place] [address] [place] [address] [id number] GUERRERO MENA Self - patient is the insured [facility] INDEMNITY [address] [place] [address] [id number] GUERRERO MENA Self - patient is the insured Medical (General) History Medical History History ICD Code Atrial fibrillation Denies [place],CVA,Lung disease,renal disease Hypothyroidism Diet-controlled diabetes Lower leg [...]
--- OUTSIDE RECORDS SUMMARY | 2025-03-14 08:04 | XMS_ITS | Patient Health Record ---
Author Organization [facility] [place] Address [address] [place] [address] Care Team Providers Care Tray Filler Name Role Phone Kwame Mello MD Primary Care Provider Sammy Escalona Unavailable [phone] Reason For Referral No Information Medications Medication [...] Polyneuropathy due to type 2 diabetes mellitus (819052083) Type 2 diabetes mellitus with diabetic polyneuropathy (E11.42) Active confirmed Plan Of Treatment Pending Test Test Name Order Date [id number] NAIL, 6 OR MORE 05/06/2016 [id number] NAIL, 6 OR MORE 09/05/2016 [id number] SKIN LESION 09/05/2016 [id number] SKIN LESION 05/06/2016 Insurance Providers Payer Name Payer Address Payer Phone Subscriber Number Group Number Insured Name Patient Relationship to Insured Coverage Start Date Coverage End Date Medicare National Govt Svcs Inc [address] [place] [address] [id number] Balwinder Clay Self - patient is the insured [employer] ([facility]) [address] [place] [address] [id number] Balwinder Clay Self - patient is the insured Medical (General) History Medical History History ICD Code type II diabetes High blood pressure Measles Chicken pox Hospitalization History Reason Date(Month/Year) Patient was in [facility] for 10 days for afib. 03/2016
--- NOTE | 2025-03-14 08:19 | MHC.OFFVIS ---
Vital Signs 03/14/25 08:21 Height 6 ft 1 in Weight 132 lb 11.492 oz BMI 17.5 BP 100/66 Blood Pressure Location Lt brachial Position Sitting Pulse 54 Pulse Source Monitor Intake Visit Reasons: 1 year follow up Area Representative Required: No Accompanied by: Self / Same As Patient Allergies No Known Allergies (No Known Allergies*) Allergy (Verified 03/13/25 09:07) Medication List - Last Reconciled 03/14/25 by Tunde Spring MD albuterol sulfate 90 mcg/actuation 2 puffs inhalation Q4-6H PRN digoxin 125 mcg PO DAILY diltiazem HCl ER 180 mg PO BID 90 days furosemide 40 mg PO BID levetiracetam 500 mg PO BID levothyroxine 50 mcg PO DAILY rivaroxaban (Xarelto) 20 mg PO DAILY HPI Comments Details: Balwinder returns for follow-up regarding atrial fibrillation, aortic stenosis, congestive heart failure. Overall, he is feeling good. No cardiac complaints whatsoever. No angina. [facility] History (Updated 03/14/25 @ 08:44 by Tunde Spring MD) Seizures Chronic heart failure with preserved ejection fraction (HFpEF) Non-rheumatic aortic stenosis Persistent atrial fibrillation Afib Hypothyroidism Family History Father Alzheimers disease Mental health disorder Mother Dementia Mental health disorder Social History Household Members: Spouse Housing: House Alcohol intake: former Patient Tobacco Use Status: Current everyday Tobacco user Tobacco use type: Cigarette Cigarette Packs Per Day: 0.5 Cigarettes Per Day: 9 Years Smoked: 45 +/- e-Cigarette/Vaping Use: Never Used Second Hand Smoke Exposure: Yes service: No Current occupational status: retired Cognitive needs: No Hearing needs: No Vision needs: Yes Review of Systems Const Denies chills, Denies fatigue, Denies fever(s), Denies frequent falls, Denies weakness, Denies weight gain and Denies weight loss ENT Denies dizziness Card Denies chest pain, Denies leg edema, Denies lightheadedness, Denies palpitations, Denies dyspnea and Denies dyspnea on exertion Resp Denies cough, Denies dyspnea and Denies dyspnea on exertion GI Denies hematochezia Musc Denies abnormal gait, Denies muscle weakness, Denies numbness, Denies radiating pain into limb and Denies tingling Neuro Denies abnormal gait, Denies dizziness, Denies frequent falls, Denies numbness, Denies tingling and Denies weakness Endo Denies fatigue and Denies palpitations Physical Exam Vital Signs: Last Vital Signs Pulse 54 03/14/25 08:21 BP 100/66 03/14/25 08:21 BMI result Body Mass Index 17.5 Const General: comfortable and no acute distress Orientation/consciousness: patient oriented x3 HEENT Other: Unremarkable Head: Yes normal to inspection Neck Neck: Yes normal visual inspection Chest Chest palpation & inspection: normal inspection of the chest Resp Other: Minimal crackles at bases. Cardio Palpation: normal PMI Heart sounds: S1 normal heart sound present, S2 normal heart sound present, no gallops, Murmur heart sound present systolic II/ and at the right sternal border and no rubs GI Palpation (GI): Soft to palpation Back/Spine/Pelvis Other: unremarkable Skin General skin exam: no rashes or lesions noted Neuro General: patient oriented x3 Extrem General: Yes normal to inspection Psych Mental Status: mental status grossly normal Office Procedures EKG Details: EKG with atrial fibrillation at 54/Min; leftward axis; nonspecific ST-T changes; cannot exclude old anteroseptal infarct but could also be from body habitus/lead placement. [id number], Complete Assessment & Plan Assessment & Plan (1) Persistent atrial fibrillation: Code(s): I48.19 - Other persistent atrial fibrillation Category: Medical Plan: Essentially permanent atrial fibrillation on rate control including diltiazem and digoxin. Remains on Xarelto. (2) Non-rheumatic aortic stenosis: Code(s): I35.0 - Nonrheumatic aortic (valve) stenosis Category: Medical Plan: Most recent echocardiogram shows [id number] aortic stenosis. Can be monitored periodically. (3) Chronic heart failure with preserved ejection fraction (HFpEF): Code(s): I50.32 - Chronic diastolic (congestive) heart failure Category: Medical Plan: Stable. On diuretics. (4) Abnormal EKG: Code(s): R94.31 - Abnormal electrocardiogram [ECG] [EKG] Category: Medical Plan: EKG shows possible anteroseptal infarct but not clear if it is just from body habitus as he has lost about 20 lb in weight. We discussed about this today. Clinically, he has got absolutely no angina. We discussed about a possible stress test but decided to just monitor him clinically for now. agrees. Plan Discussion Notes During the visit, we discussed the patient's atrial fibrillation and the potential for a past myocardial infarction, although no chest pain was reported. We agreed to continue monitoring the patient's condition with regular follow-ups and medication adherence. The patient's seizure history was reviewed, noting stability over the past several months. We also addressed the patient's significant weight loss and ongoing smoking habits. Efforts to reduce smoking were discussed, including controlling access to cigarettes. Patient was informed and verbally consented to the use of an ambient scribe for clinic note documentation during this visit. Patient Instructions: - Continue taking your medications as prescribed. - Attend regular follow-up appointments to monitor your heart condition. - Monitor your weight and report any significant changes. - Limit your smoking by following the plan to control access to cigarettes. Coding Level of Care Code Est Pt Level 4 (46808) Complex EM visit Add On G2211 Diagnoses Persistent atrial fibrillation I48.19 Non-rheumatic aortic stenosis I35.0 Chronic heart failure with preserved ejection fraction (HFpEF) I50.32 Abnormal EKG R94.31 CPT Codes EKG - CPT: 11737-[id number], Complete ([id number])
[2025-03-14 08:21] VITALS: BP 100/66; PULSE 54; BMI 17.5
== END 2025-03-14 08:40 | disposition home or self-care (01) ==
LOC: HO.HCS 07:57
PROVIDERS: PCP Internal Medicine; Visit Provider Internal Medicine
DX: I48.19 Other persistent atrial fibrillation (principal); I35.0 Nonrheumatic aortic (valve) stenosis; I50.32 Chronic diastolic (congestive) heart failure; R94.31 Abnormal electrocardiogram [ECG] [EKG]
CPT/HCPCS: 93010; 99214; G2211

== ENCOUNTER → 2025-03-14 07:56 | Outpatient (BNVA) | payer MEDICARE, OTHER, SELFPAY | PROVIDERS: PCP Internal Medicine; Visit Provider Internal Medicine | DX: I48.19 Other persistent atrial fibrillation (principal); I35.0 Nonrheumatic aortic (valve) stenosis; I50.32 Chronic diastolic (congestive) heart failure; R94.31 Abnormal electrocardiogram [ECG] [EKG] | CPT/HCPCS: 93005; 99212 ==